=== PATIENT | male | born 1945 | race Caucasian/White ===

== ENCOUNTER → 2018-05-06 | Outpatient (CLI) | payer MEDICARE, OTHER ==
--- NOTE | 2018-05-06 12:44 | CT ---
EXAMINATION TYPE: CT abdomen pelvis wo con DATE OF EXAM: 05/06/2018 COMPARISON: None HISTORY: Gross hematuria today. CT DLP: 1100 mGycm Automated exposure control for dose reduction was used. TECHNIQUE: Helical acquisition of images from the lung bases through the pelvis. FINDINGS: Coronary calcifications noted, there may be calcification along the pericardium posteriorly left ventricle. Lack of contrast may compromise sensitivity. LUNG BASES: Nodular density in the right lower lobe on axial image 1 measures approximately 4 mm, no pleural or pericardial effusion. AORTA: No significant abnormality is appreciated. LIVER/GB: Punctate calcifications in the right lobe of questionable clinical significance. Liver show s low attenuation possibly due to hepatic steatosis. Liver is enlarged. Gallbladder is unremarkable. PANCREAS: No significant abnormality is seen. SPLEEN: No significant abnormality is seen. ADRENALS: No significant abnormality is seen. KIDNEYS: Upper pole right kidney shows a hypointense focus measuring 17 mm likely represent cysts. Th ere is a nonobstructive calcifications seen at the lower pole the right kidney and left kidney measur ing only 3 mm each. Hypointense focus within the left kidney lower pole measures 2.1 cm and also like ly represent cysts. Proximal left ureteral or renal pelvic calculus measures only approximately 2 to 3 mm. REPRODUCTIVE ORGANS: Prostate is enlarged. URINARY BLADDER: There is some high attenuation focus within the urinary bladder, 5 or 6 punctate ca lcific densities are suspected on axial image 1:30, urinary bladder shows thickened wall. BOWEL: Diverticular changes associated with the colon, colonic wall thickening could be due to muscl e wall hypertrophy, difficult to exclude an underlying mass. Follow-up is recommended. The appendix i s normal. FREE AIR: No Free Air is visible. ASCITES: None visible. PELVIC ADENOPATHY: None visualized. RETROPERITONEAL ADENOPATHY: No Retroperitoneal Adenopathy visible. OSSEOUS STRUCTURES: Degenerative disc changes are present in the visualized spine. Facet arthropathy noted at the lower lumbar spine. IMPRESSION: RENAL PELVIC OR PROXIMAL URETERAL CALCIFICATION ON THE LEFT. INDETERMINATE LUNG NODULE. HEPATIC STEAT OSIS, HEPATOMEGALY. BILATERAL NONOBSTRUCTIVE RENAL CALCULI, QUESTION ABNORMAL CALCIFICATIONS WITHIN T HE BLADDER, CONSIDER UROLOGY CONSULT TO EXCLUDE UNDERLYING MASS. NONCONTRAST EXAM. DIVERTICULOSIS. Ad ditional findings above.
== END | disposition home or self-care (01) ==
LOC: RADCTMAIN 12:11
PROVIDERS: ATTEND Family Medicine
DX: N20.0 Calculus of kidney (principal); K76.0 Fatty (change of) liver, not elsewhere classified; K57.30 Diverticulosis of large intestine without perforation or abscess without bleeding; R16.0 Hepatomegaly, not elsewhere classified
CPT/HCPCS: 74176

== ENCOUNTER → 2021-04-18 | Outpatient (CLI) | payer MEDICARE, OTHER ==
--- NOTE | 2021-04-18 16:23 | CT ---
EXAMINATION TYPE: CT brain w con DATE OF EXAM: 04/18/2021 COMPARISON: None HISTORY: cough, weight loss CT DLP: 978.2 mGycm Automated exposure control for dose reduction was used. CONTRAST: CT scan of the head is performed with IV Contrast, patient injected with 100 mL of Isovue 300. FINDINGS: There is no abnormal enhancing mass or midline shift identified. The ventricles and sulci are mildly enlarged. The globes are intact and the visualized sinuses are clear. IMPRESSION: No enhancing lesion. Generalized atrophic change not unusual for this patient's age group.
--- NOTE | 2021-04-18 16:30 | CT ---
EXAMINATION TYPE: CT neck chest w con DATE OF EXAM: 04/18/2021 COMPARISON: None HISTORY: cough, weight loss CT DLP: 932.1 mGycm CONTRAST: CT scan of the neck is performed with IV Contrast, patient injected with 100 mL of Isovue 300. Contrast enhanced CT of the neck was performed from the skull base through the lung apices. AIRWAY: The supraglottic, glottic, and subglottic portions of the airway appear patent and free of mass. SALIVARY GLANDS: The submandibular and parotid glands are free of mass or inflammatory process. THYROID GLAND: No nodules or masses seen. LYMPH NODES: No adenopathy seen greater than 1cm. LUNG APICES: No nodule or mass is seen. OTHER: Vascular structures are patent. Moderate degenerative change of the cervical spine. No absce ss seen. IMPRESSION: No significant abnormality to account for the patient's symptoms. EXAMINATION TYPE: CT neck chest w con DATE OF EXAM: 04/18/2021 COMPARISON: None HISTORY: cough, weight loss CT DLP: 932.1 mGycm Automated exposure control for dose reduction was used. CONTRAST: CT scan of the chest is performed with IV Contrast, patient injected with 100 mL of Isovue 300. FINDINGS: LUNGS: Mild hyperinflation compatible with COPD. The lungs are grossly clear, there is no concerning parenchymal mass or nodule identified. There is no pleural effusion or pneumothorax seen. The trac heobronchial tree is patent. MEDIASTINUM: There are no greater than 1 cm hilar or mediastinal lymph nodes. No pericardial effusi on is seen. Thoracic aorta is of normal caliber. The heart is not enlarged. UPPER ABDOMEN: No significant abnormality appreciated. OTHER: No additional significant abnormality is seen. IMPRESSION: Mild COPD. Otherwise unremarkable study.
== END | disposition home or self-care (01) ==
LOC: RADCTMAIN 14:40
PROVIDERS: ATTEND Family Medicine
DX: J44.9 Chronic obstructive pulmonary disease, unspecified (principal); R05 Cough; R63.4 Abnormal weight loss
CPT/HCPCS: 82565; 84520; 70491; 70460; 71260; 36415; Q9967

== ENCOUNTER 2023-02-18 18:06 | Inpatient (IN) | payer MEDICARE, OTHER ==
--- NOTE | 2023-02-18 19:04 | ED ---
General Adult HPI - General Source: patient, EMS, RN notes reviewed, old records reviewed Mode of arrival: EMS Limitations: no limitations <Miguel Rincon - Last Filed: 02/18/23 20:21> <Barbara Alan - Last Filed: 02/18/23 23:20> <Miguel Jules - Last Filed: 02/21/23 22:57> - General Chief complaint: Urogenital Stated complaint: urogenital Time Seen by Provider: 02/18/23 18:35 - History of Present Illness Initial comments: This is a 77-year-old male who presents emergency Department who comes into the emergency department stating that last night he started having blood in his and he became difficult to urinate starting last light. Patient states the pain in the suprapubic area get worse today and he couldn't urinate so he came to the emergency department. Patient denies any previous history of kidney dysfunction. Patient states he did have once a problem with urinary retention. Patient denies any recent urinary tract infections. Patient denies any fever chills or cough per patient denies any back pain. Patient denies any other problems at this time. (Miguel Rincon) 77 male who did present for significant urinary retention abdominal pain and hematuria. (Miguel Jules) - Related Data Home Medications Medication Instructions Recorded Confirmed Ergocalciferol [Vitamin D2 50,000 unit PO Q14D 01/13/14 02/18/23 (DRISDOL)] Finasteride 5 mg PO DAILY 01/13/14 02/18/23 Tamsulosin [Flomax] 0.4 mg PO HS 01/13/14 02/18/23 atenoloL 50 mg PO DAILY 01/13/14 02/18/23 atenoloL [Tenormin] 25 mg PO HS 01/13/14 02/18/23 metFORMIN HCL 500 mg PO BID-W/MEALS 04/25/16 02/18/23 Amitriptyline HCl [Elavil] 10 mg PO HS 02/18/23 02/18/23 Atorvastatin [Lipitor] 40 mg PO HS 02/18/23 02/18/23 Cetirizine HCl [Zyrtec] 10 mg PO DAILY 02/18/23 02/18/23 Fluticasone Nasal [place] [Flonase 1 spray EA NOSTRIL BID 02/18/23 02/18/23 Nasal [place]] Gabapentin 300 mg PO DAILY 02/18/23 02/18/23 Losartan Potassium 100 mg PO DAILY 02/18/23 02/18/23 Pantoprazole [Protonix] 40 mg PO DAILY 02/18/23 02/18/23 hydrALAZINE HCL [Apresoline] 25 mg PO BID-W/MEALS 02/18/23 02/18/23 Previous Rx's Medication Instructions Recorded Clopidogrel [Plavix] 75 mg PO DAILY tab 04/28/16 Nitroglycerin Sl Tabs [Nitrostat] 0.4 mg SUBLINGUAL Q5M PRN #25 tab 04/28/16 Allergies Allergy/AdvReac Type Severity Reaction Status Date / Time No Known Allergies Allergy Verified 02/18/23 21:45 Review of Systems ROS Other: All systems not noted in ROS Statement are negative. <Miguel Rincon - Last Filed: 02/18/23 20:21> ROS Other: All systems not noted in ROS Statement are negative. <Barbara Alan - Last Filed: 02/18/23 23:20> ROS Other: All systems not noted in ROS Statement are negative. <Miguel Jules - Last Filed: 02/21/23 22:57> ROS Statement: Those systems with pertinent positive or pertinent negative responses have been documented in the HPI. Past Medical History Past Medical History: Coronary Artery Disease (CAD), Chest Pain / Angina, Diabetes Mellitus, GERD/Reflux, Hyperlipidemia, Hypertension, Myocardial Infarction ([place]), Prostate Disorder Last Myocardial Infarction Date:: 01/13/14 History of Any Multi-Drug Resistant Organisms: None Reported Past Surgical History: Heart Catheterization With Stent Additional Past Surgical History / Comment(s): X4. STENTS Past Anesthesia/Blood Transfusion Reactions: No Reported Reaction Date of Last Stent Placement:: 2013 Past Psychological History: No Psychological Hx Reported Past Alcohol Use History: None Reported Past Drug Use History: None Reported - Past Family History Brother(s) Family Medical History: Myocardial Infarction ([place]) Additional Family Medical History / Comment(s): CABG <Miguel Rincon - Last Filed: 02/18/23 20:21> General Exam Limitations: no limitations <Miguel Rincon - Last Filed: 02/18/23 20:21> General appearance: alert, in no apparent distress Head exam: Present: atraumatic, normocephalic, normal inspection Eye exam: Present: normal appearance, PERRL, EOMI. Absent: scleral icterus, conjunctival injection, periorbital swelling ENT exam: Present: normal exam, mucous membranes moist Neck exam: Present: normal inspection. Absent: tenderness, meningismus, lymphadenopathy Respiratory exam: Present: normal lung sounds bilaterally. Absent: respiratory distress, wheezes, rales, rhonchi, stridor Cardiovascular Exam: Present: regular rate, normal rhythm, normal heart sounds. Absent: systolic murmur, diastolic murmur, rubs, gallop, clicks GI/Abdominal exam: Present: soft, normal bowel sounds. Absent: distended, tenderness, guarding, rebound, rigid Extremities exam: Present: normal inspection, full ROM, normal capillary refill. Absent: tenderness, pedal edema, joint swelling, calf tenderness Back exam: Present: normal inspection Neurological exam: Present: alert, oriented X3, CN II-XII intact Psychiatric exam: Present: normal affect, normal mood Skin exam: Present: warm, dry, intact, normal color. Absent: rash <Miguel Jules - Last Filed: 02/21/23 22:57> - General Exam Comments Initial Comments: GENERAL: Patient is well-developed and well-nourished. Patient is nontoxic and well- hydrated and is in mild distress. ENT: Neck is soft and supple. No significant lymphadenopathy is noted. Oropharynx is clear. Moist mucous membranes. Neck has full range of motion without eliciting any pain. EYES: The sclera were anicteric and conjunctiva were pink and moist. Extraocular movements were intact and pupils were equal round and reactive to light. Eyelids were unremarkable. PULMONARY: Unlabored respirations. Good breath sounds bilaterally. No audible rales rhonchi or wheezing was noted. CARDIOVASCULAR: There is a regular rate and rhythm without any murmurs gallops or rubs. ABDOMEN: Suprapubic abdominal tenderness SKIN: Skin is clear with no lesions or rashes and otherwise unremarkable. NEUROLOGIC: Patient is alert and oriented x3. Cranial nerves II through XII are grossly intact. Motor and sensory are also intact. Normal speech, volume and content. Symmetrical smile. MUSCULOSKELETAL: Normal extremities with adequate strength and full range of motion. LYMPHATICS: No significant lymphadenopathy is noted PSYCHIATRIC: Normal psychiatric evaluation. (Miguel Rincon) Course <Miguel Jules - Last Filed: 02/21/23 22:57> Vital Signs 02/18/23 02/19/23 02/19/23 18:20 01:08 01:47 Pulse Rate 69 66 70 Respiratory 18 17 22 Rate Blood Pressure 185/88 181/82 175/102 O2 Sat by Pulse 98 96 99 Oximetry - Reevaluation(s) Reevaluation #1: Medical record is reviewed (Miguel Jules) Reevaluation #2: Patient has no change in symptoms still unable to urinate with significant abdominal pain (Miguel Jules) EKG Findings - EKG Comments: EKG Findings:: EKG is ectopic atrial rhythm 68 VT 186 QRS 152 QTC 469 - EKG Results: EKG: interpreted by ERMD <Miguel Jules - Last Filed: 02/21/23 22:57> Medical Decision Making <Miguel Rincon - Last Filed: 02/18/23 20:21> - Lab Data Result diagrams: 02/18/23 21:00 02/18/23 21:00 <Barbara Alan - Last Filed: 02/18/23 23:20> - Lab Data Result diagrams: 02/21/23 03:30 02/21/23 03:30 - Radiology Data Radiology results: report reviewed (CT head and pelvis shows bladder mass with significant surrounding clot and bleeding), image reviewed <Miguel Jules - Last Filed: 02/21/23 22:57> - Medical Decision Making Was pt. sent in by a medical professional or institution (, PA, [employer], urgent care, hospital, or penitentiary...) When possible be specific @ -[No] Did you speak to anyone other than the patient for history (EMS, parent, family, police, friend...)? What history was obtained from this source @ -[No] Did you review nursing and triage notes (agree or disagree)? Why? @ -[I reviewed and agree with nursing and triage notes] Were old charts reviewed (outside hosp., previous admission, EMS record, old EKG, old radiological studies, urgent care reports/EKG's, penitentiary records)? Report findings @ -[No old charts were reviewed] Differential Diagnosis (chest pain, altered mental status, abdominal pain women, abdominal pain men, vaginal bleeding, weakness, fever, dyspnea, syncope, headache, dizziness, GI bleed, back pain, seizure, CVA, palpatations, mental health, musculoskeletal)? @ -Hematuria, papillary necrosis, pyelonephrosis, urinary tract infection, bladder tumor, urinary retention, this is not all inclusive list EKG interpreted by me (3pts min.). @ -[As above] X-rays interpreted by me (1pt min.). @ -[None done] CT interpreted by me (1pt min.). @ -[None done] U/S interpreted by me (1pt. min.). @ -[None done] What testing was considered but not performed or refused? (CT, X-rays, U/S, labs)? Why? @ -[None] What meds were considered but not given or refused? Why? @ -[None] Did you discuss the management of the patient with other professionals (professionals i.e. , PA, [employer], lab, RT, psych nurse, social media specialist, wedding photographer, teacher, optics technical officer, casework supervisor)? Give summary @ -[No] Was smoking cessation discussed for >3mins.? @ -[No] Was critical care preformed (if so, how long)? @ -[No] Were there social determinants of health that impacted care today? How? (Homelessness, low income, unemployed, alcoholism, drug addiction, transportation, low edu. Level, literacy, decrease access to med. care, fdc, rehab)? @ -[No] Was there de-escalation of care discussed even if they declined (Discuss DNR or withdrawal of care, Hospice)? DNR status @ -[No] What co-morbidities impacted this encounter? (DM, HTN, Smoking, COPD, CAD, Cancer, CVA, ARF, Chemo, Hep., AIDS, mental health diagnosis, sleep apnea, morbid obesity)? @ -[None] Was patient admitted / discharged? Hospital course, mention meds given and route, prescriptions, significant lab abnormalities, going to OR and other pertinent info. @ -I ordered some blood work on the patient to check kidney function. I also ordered a Grover catheter to be placed however no urine was returned so the Grover catheter will be replaced a second time and a three-way will be placed over the patient could be constantly irrigated. Dr. Alan will be taking over the care of this patient at 8:30. (Miguel Rincon) Labs resulted with mild acute kidney injury and some anemia, previous labs were 2017 for comparison. A three-way Grover catheter was placed for irrigation there was some resistance to irrigation however dark bloody urine continued draining. 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 CT scan was ordered and pending at time of admission. Patient care discussed with Dr Mcgovern who agrees with plan for continue grover, NPO for likely cystography tomorrow. Patient care discussed with Suzanne who accepts admission for [facility]. (Barbara Alan) 77 male to be admitted for urology evaluation and treatment. Patient be admitted for surgical evaluation of significant hematuria with likely mass (Miguel Jules) - Lab Data Lab Results 02/18/23 02/18/23 02/19/23 Range/Units 21:00 21:00 00:50 WBC 13.2 H 13.6 H (3.8-10.6) k/uL RBC 3.43 L 3.20 L (4.30-5.90) m/uL Hgb 10.6 L 10.0 L (13.0-17.5) gm/dL Hct 31.4 L 29.1 L (39.0-53.0) % MCV 91.7 91.0 (80.0-100.0) fL MCH 30.9 31.3 (25.0-35.0) pg MCHC 33.7 34.4 (31.0-37.0) g/dL RDW 13.8 13.8 (11.5-15.5) % Plt Count 165 165 (150-450) k/uL MPV 8.2 8.4 Neutrophils % 86 83 % Lymphocytes % 9 11 % Monocytes % 3 4 % Eosinophils % 1 1 % Basophils % 0 0 % Neutrophils # 11.3 H 11.2 H (1.3-7.7) k/uL Lymphocytes # 1.1 1.5 (1.0-4.8) k/uL Monocytes # 0.4 0.6 (0-1.0) k/uL Eosinophils # 0.1 0.1 (0-0.7) k/uL Basophils # 0.0 0.0 (0-0.2) k/uL Hypochromasia Sample Site ABG pH (7.35-7.45) ABG pCO2 (35-45) mmHg ABG pO2 (83-108) mmHg ABG HCO3 (21-25) mmol/L ABG Total CO2 (19-24) mmol/L ABG O2 Saturation (94-97) % ABG Base Excess mmol/L Rashad Test FiO2 % Sodium 141 (137-145) mmol/L Potassium 5.2 H (3.5-5.1) mmol/L Chloride 106 (98-107) mmol/L Carbon Dioxide 24 (22-30) mmol/L Anion Gap 11 mmol/L BUN 25 H (9-20) mg/dL Creatinine 1.42 H (0.66-1.25) mg/dL Est GFR (CKD-EPI)AfAm 55 (>60 ml/min/1.73 sqM) Est GFR (CKD-EPI)NonAf 48 (>60 ml/min/1.73 sqM) Glucose 175 H (74-99) mg/dL POC Glucose (mg/dL) (70-110) mg/dL POC Glu Media Intern ID Lactic Ac Sepsis Rflx Plasma Lactic Acid Bull (0.7-2.0) mmol/L Calcium 8.8 (8.4-10.2) mg/dL Total Bilirubin 0.5 (0.2-1.3) mg/dL AST 22 (17-59) U/L ALT 21 (4-49) U/L Alkaline Phosphatase 72 (38-126) U/L C-Reactive Protein (<1.0) mg/dL Total Protein 6.5 (6.3-8.2) g/dL Albumin 3.8 (3.5-5.0) g/dL Globulin g/dL Albumin/Globulin Ratio Blood Type Blood Type Confirm Blood Type Recheck Bld Type Recheck Status Antibody Screen Spec Expiration Date 02/19/23 02/19/23 02/19/23 Range/Units 00:50 01:45 01:49 WBC (3.8-10.6) k/uL RBC (4.30-5.90) m/uL Hgb (13.0-17.5) gm/dL Hct (39.0-53.0) % MCV (80.0-100.0) fL MCH (25.0-35.0) pg MCHC (31.0-37.0) g/dL RDW (11.5-15.5) % Plt Count (150-450) k/uL MPV Neutrophils % % Lymphocytes % % Monocytes % % Eosinophils % % Basophils % % Neutrophils # (1.3-7.7) k/uL Lymphocytes # (1.0-4.8) k/uL Monocytes # (0-1.0) k/uL Eosinophils # (0-0.7) k/uL Basophils # (0-0.2) k/uL Hypochromasia Sample Site ABG pH (7.35-7.45) ABG pCO2 (35-45) mmHg ABG pO2 (83-108) mmHg ABG HCO3 (21-25) mmol/L ABG Total CO2 (19-24) mmol/L ABG O2 Saturation (94-97) % ABG Base Excess mmol/L Rashad Test FiO2 % Sodium 140 (137-145) mmol/L Potassium 5.0 (3.5-5.1) mmol/L Chloride 106 (98-107) mmol/L Carbon Dioxide 24 (22-30) mmol/L Anion Gap 10 mmol/L BUN 26 H (9-20) mg/dL Creatinine 1.49 H (0.66-1.25) mg/dL Est GFR (CKD-EPI)AfAm 52 (>60 ml/min/1.73 sqM) Est GFR (CKD-EPI)NonAf 45 (>60 ml/min/1.73 sqM) Glucose 185 H (74-99) mg/dL POC Glucose (mg/dL) (70-110) mg/dL POC Glu Media Intern ID Lactic Ac Sepsis Rflx Plasma Lactic Acid Bull (0.7-2.0) mmol/L Calcium 8.8 (8.4-10.2) mg/dL Total Bilirubin (0.2-1.3) mg/dL AST (17-59) U/L ALT (4-49) U/L Alkaline Phosphatase (38-126) U/L C-Reactive Protein (<1.0) mg/dL Total Protein (6.3-8.2) g/dL Albumin (3.5-5.0) g/dL Globulin g/dL Albumin/Globulin Ratio Blood Type O Positive Blood Type Confirm O Positive Blood Type Recheck No Previous Record Bld Type Recheck Status CABO Indicated Antibody Screen NEGATIVE Spec Expiration Date 02/22/2023 - 234902/19/23 02/19/23 02/19/23 Range/Units 03:29 03:29 15:10 WBC 13.7 H (3.8-10.6) k/uL RBC 3.21 L (4.30-5.90) m/uL Hgb 9.7 L (13.0-17.5) gm/dL Hct 30.0 L (39.0-53.0) % MCV 93.6 (80.0-100.0) fL MCH 30.2 (25.0-35.0) pg MCHC 32.3 (31.0-37.0) g/dL RDW 13.8 (11.5-15.5) % Plt Count 184 (150-450) k/uL MPV 8.4 Neutrophils % 82 % Lymphocytes % 13 % Monocytes % 3 % Eosinophils % 1 % Basophils % 0 % Neutrophils # 11.3 H (1.3-7.7) k/uL Lymphocytes # 1.8 (1.0-4.8) k/uL Monocytes # 0.4 (0-1.0) k/uL Eosinophils # 0.1 (0-0.7) k/uL Basophils # 0.0 (0-0.2) k/uL Hypochromasia Sample Site ABG pH (7.35-7.45) ABG pCO2 (35-45) mmHg ABG pO2 (83-108) mmHg ABG HCO3 (21-25) mmol/L ABG Total CO2 (19-24) mmol/L ABG O2 Saturation (94-97) % ABG Base Excess mmol/L Rashad Test FiO2 % Sodium 139 (137-145) mmol/L Potassium 4.8 (3.5-5.1) mmol/L Chloride 105 (98-107) mmol/L Carbon Dioxide 22 (22-30) mmol/L Anion Gap 12 mmol/L BUN 26 H (9-20) mg/dL Creatinine 1.51 H (0.66-1.25) mg/dL Est GFR (CKD-EPI)AfAm 51 (>60 ml/min/1.73 sqM) Est GFR (CKD-EPI)NonAf 44 (>60 ml/min/1.73 sqM) Glucose 247 H (74-99) mg/dL POC Glucose (mg/dL) (70-110) mg/dL POC Glu Media Intern ID Lactic Ac Sepsis Rflx Plasma Lactic Acid Bull 2.4 H* (0.7-2.0) mmol/L Calcium 8.5 (8.4-10.2) mg/dL Total Bilirubin 0.5 (0.2-1.3) mg/dL AST 21 (17-59) U/L ALT 21 (4-49) U/L Alkaline Phosphatase 73 (38-126) U/L C-Reactive Protein (<1.0) mg/dL Total Protein 6.4 (6.3-8.2) g/dL Albumin 3.8 (3.5-5.0) g/dL Globulin 2.6 g/dL Albumin/Globulin Ratio 1.5 Blood Type Blood Type Confirm Blood Type Recheck Bld Type Recheck Status Antibody Screen Spec Expiration Date 02/19/23 02/19/23 02/19/23 Range/Units 15:51 22:50 22:50 WBC 24.3 H (3.8-10.6) k/uL RBC 2.69 L (4.30-5.90) m/uL Hgb 8.4 L (13.0-17.5) gm/dL Hct 26.2 L (39.0-53.0) % MCV 97.4 (80.0-100.0) fL MCH 31.1 (25.0-35.0) pg MCHC 31.9 (31.0-37.0) g/dL RDW 13.9 (11.5-15.5) % Plt Count 222 (150-450) k/uL MPV 7.8 Neutrophils % 82 % Lymphocytes % 11 % Monocytes % 4 % Eosinophils % 1 % Basophils % 0 % Neutrophils # 20.0 H (1.3-7.7) k/uL Lymphocytes # 2.7 (1.0-4.8) k/uL Monocytes # 1.1 H (0-1.0) k/uL Eosinophils # 0.4 (0-0.7) k/uL Basophils # 0.1 (0-0.2) k/uL Hypochromasia Marked Sample Site ABG pH (7.35-7.45) ABG pCO2 (35-45) mmHg ABG pO2 (83-108) mmHg ABG HCO3 (21-25) mmol/L ABG Total CO2 (19-24) mmol/L ABG O2 Saturation (94-97) % ABG Base Excess mmol/L Rashad Test FiO2 % Sodium (137-145) mmol/L Potassium (3.5-5.1) mmol/L Chloride (98-107) mmol/L Carbon Dioxide (22-30) mmol/L Anion Gap mmol/L BUN (9-20) mg/dL Creatinine (0.66-1.25) mg/dL Est GFR (CKD-EPI)AfAm (>60 ml/min/1.73 sqM) Est GFR (CKD-EPI)NonAf (>60 ml/min/1.73 sqM) Glucose (74-99) mg/dL POC Glucose (mg/dL) (70-110) mg/dL POC Glu Media Intern ID Lactic Ac Sepsis Rflx Y Plasma Lactic Acid Bull 8.1 H* (0.7-2.0) mmol/L Calcium (8.4-10.2) mg/dL Total Bilirubin (0.2-1.3) mg/dL AST (17-59) U/L ALT (4-49) U/L Alkaline Phosphatase (38-126) U/L C-Reactive Protein (<1.0) mg/dL Total Protein (6.3-8.2) g/dL Albumin (3.5-5.0) g/dL Globulin g/dL Albumin/Globulin Ratio Blood Type Blood Type Confirm Blood Type Recheck Bld Type Recheck Status Antibody Screen Spec Expiration Date 02/19/23 02/19/23 02/19/23 Range/Units 22:51 23:17 23:37 WBC (3.8-10.6) k/uL RBC (4.30-5.90) m/uL Hgb (13.0-17.5) gm/dL Hct (39.0-53.0) % MCV (80.0-100.0) fL MCH (25.0-35.0) pg MCHC (31.0-37.0) g/dL RDW (11.5-15.5) % Plt Count (150-450) k/uL MPV Neutrophils % % Lymphocytes % % Monocytes % % Eosinophils % % Basophils % % Neutrophils # (1.3-7.7) k/uL Lymphocytes # (1.0-4.8) k/uL Monocytes # (0-1.0) k/uL Eosinophils # (0-0.7) k/uL Basophils # (0-0.2) k/uL Hypochromasia Sample Site ABG pH (7.35-7.45) ABG pCO2 (35-45) mmHg ABG pO2 (83-108) mmHg ABG HCO3 (21-25) mmol/L ABG Total CO2 (19-24) mmol/L ABG O2 Saturation (94-97) % ABG Base Excess mmol/L Rashad Test FiO2 % Sodium 141 (137-145) mmol/L Potassium 5.1 (3.5-5.1) mmol/L Chloride 108 H (98-107) mmol/L Carbon Dioxide 17 L (22-30) mmol/L Anion Gap 16 mmol/L BUN (9-20) mg/dL Creatinine (0.66-1.25) mg/dL Est GFR (CKD-EPI)AfAm (>60 ml/min/1.73 sqM) Est GFR (CKD-EPI)NonAf (>60 ml/min/1.73 sqM) Glucose (74-99) mg/dL POC Glucose (mg/dL) 183 H (70-110) mg/dL POC Glu Media Intern ID Naomi Hodge Lactic Ac Sepsis Rflx Y Plasma Lactic Acid Bull (0.7-2.0) mmol/L Calcium (8.4-10.2) mg/dL Total Bilirubin (0.2-1.3) mg/dL AST (17-59) U/L ALT (4-49) U/L Alkaline Phosphatase (38-126) U/L C-Reactive Protein (<1.0) mg/dL Total Protein (6.3-8.2) g/dL Albumin (3.5-5.0) g/dL Globulin g/dL Albumin/Globulin Ratio Blood Type Blood Type Confirm Blood Type Recheck Bld Type Recheck Status Antibody Screen Spec Expiration Date 02/20/23 02/20/23 02/20/23 Range/Units 00:04 00:37 02:28 WBC (3.8-10.6) k/uL RBC (4.30-5.90) m/uL Hgb (13.0-17.5) gm/dL Hct (39.0-53.0) % MCV (80.0-100.0) fL MCH (25.0-35.0) pg MCHC (31.0-37.0) g/dL RDW (11.5-15.5) % Plt Count (150-450) k/uL MPV Neutrophils % % Lymphocytes % % Monocytes % % Eosinophils % % Basophils % % Neutrophils # (1.3-7.7) k/uL Lymphocytes # (1.0-4.8) k/uL Monocytes # (0-1.0) k/uL Eosinophils # (0-0.7) k/uL Basophils # (0-0.2) k/uL Hypochromasia Sample Site rrad ABG pH 7.25 L (7.35-7.45) ABG pCO2 47 H (35-45) mmHg ABG pO2 113 H (83-108) mmHg ABG HCO3 21 (21-25) mmol/L ABG Total CO2 22 (19-24) mmol/L ABG O2 Saturation 97.1 H (94-97) % ABG Base Excess -6.7 mmol/L Rashad Test Yes FiO2 40 % Sodium (137-145) mmol/L Potassium (3.5-5.1) mmol/L Chloride (98-107) mmol/L Carbon Dioxide (22-30) mmol/L Anion Gap mmol/L BUN (9-20) mg/dL Creatinine (0.66-1.25) mg/dL Est GFR (CKD-EPI)AfAm (>60 ml/min/1.73 sqM) Est GFR (CKD-EPI)NonAf (>60 ml/min/1.73 sqM) Glucose (74-99) mg/dL POC Glucose (mg/dL) 187 H (70-110) mg/dL POC Glu Media Intern ID Rosario Choudhury Lactic Ac Sepsis Rflx Plasma Lactic Acid Bull (0.7-2.0) mmol/L Calcium (8.4-10.2) mg/dL Total Bilirubin (0.2-1.3) mg/dL AST (17-59) U/L ALT (4-49) U/L Alkaline Phosphatase (38-126) U/L C-Reactive Protein 7.8 H (<1.0) mg/dL Total Protein (6.3-8.2) g/dL Albumin (3.5-5.0) g/dL Globulin g/dL Albumin/Globulin Ratio Blood Type Blood Type Confirm Blood Type Recheck Bld Type Recheck Status Antibody Screen Spec Expiration Date 02/20/23 02/20/23 02/20/23 Range/Units 03:39 03:39 03:39 WBC 8.8 (3.8-10.6) k/uL RBC 2.44 L (4.30-5.90) m/uL Hgb 7.6 L (13.0-17.5) gm/dL Hct 22.8 L (39.0-53.0) % MCV 93.7 (80.0-100.0) fL MCH 31.3 (25.0-35.0) pg MCHC 33.4 (31.0-37.0) g/dL RDW 14.1 (11.5-15.5) % Plt Count 135 L (150-450) k/uL MPV 8.1 Neutrophils % 85 % Lymphocytes % 6 % Monocytes % 7 % Eosinophils % 1 % Basophils % 0 % Neutrophils # 7.4 (1.3-7.7) k/uL Lymphocytes # 0.5 L (1.0-4.8) k/uL Monocytes # 0.6 (0-1.0) k/uL Eosinophils # 0.1 (0-0.7) k/uL Basophils # 0.0 (0-0.2) k/uL Hypochromasia Sample Site ABG pH (7.35-7.45) ABG pCO2 (35-45) mmHg ABG pO2 (83-108) mmHg ABG HCO3 (21-25) mmol/L ABG Total CO2 (19-24) mmol/L ABG O2 Saturation (94-97) % ABG Base Excess mmol/L Rashad Test FiO2 % Sodium 141 (137-145) mmol/L Potassium 5.9 H (3.5-5.1) mmol/L Chloride 109 H (98-107) mmol/L Carbon Dioxide 27 (22-30) mmol/L Anion Gap 5 mmol/L BUN 39 H (9-20) mg/dL Creatinine 2.07 H (0.66-1.25) mg/dL Est GFR (CKD-EPI)AfAm 35 (>60 ml/min/1.73 sqM) Est GFR (CKD-EPI)NonAf 30 (>60 ml/min/1.73 sqM) Glucose 141 H (74-99) mg/dL POC Glucose (mg/dL) (70-110) mg/dL POC Glu Media Intern ID Lactic Ac Sepsis Rflx Plasma Lactic Acid Bull 2.2 H* (0.7-2.0) mmol/L Calcium 7.5 L (8.4-10.2) mg/dL Total Bilirubin (0.2-1.3) mg/dL AST (17-59) U/L ALT (4-49) U/L Alkaline Phosphatase (38-126) U/L C-Reactive Protein (<1.0) mg/dL Total Protein (6.3-8.2) g/dL Albumin (3.5-5.0) g/dL Globulin g/dL Albumin/Globulin Ratio Blood Type Blood Type Confirm Blood Type Recheck Bld Type Recheck Status Antibody Screen Spec Expiration Date 02/20/23 02/20/23 02/20/23 Range/Units 04:33 05:38 06:03 WBC (3.8-10.6) k/uL RBC (4.30-5.90) m/uL Hgb (13.0-17.5) gm/dL Hct (39.0-53.0) % MCV (80.0-100.0) fL MCH (25.0-35.0) pg MCHC (31.0-37.0) g/dL RDW (11.5-15.5) % Plt Count (150-450) k/uL MPV Neutrophils % % Lymphocytes % % Monocytes % % Eosinophils % % Basophils % % Neutrophils # (1.3-7.7) k/uL Lymphocytes # (1.0-4.8) k/uL Monocytes # (0-1.0) k/uL Eosinophils # (0-0.7) k/uL Basophils # (0-0.2) k/uL Hypochromasia Sample Site ABG pH (7.35-7.45) ABG pCO2 (35-45) mmHg ABG pO2 (83-108) mmHg ABG HCO3 (21-25) mmol/L ABG Total CO2 (19-24) mmol/L ABG O2 Saturation (94-97) % ABG Base Excess mmol/L Rashad Test FiO2 % Sodium (137-145) mmol/L Potassium (3.5-5.1) mmol/L Chloride (98-107) mmol/L Carbon Dioxide (22-30) mmol/L Anion Gap mmol/L BUN (9-20) mg/dL Creatinine (0.66-1.25) mg/dL Est GFR (CKD-EPI)AfAm (>60 ml/min/1.73 sqM) Est GFR (CKD-EPI)NonAf (>60 ml/min/1.73 sqM) Glucose (74-99) mg/dL POC Glucose (mg/dL) 131 H 179 H (70-110) mg/dL POC Glu Media Intern ID Roshni Chacon Brandi Lactic Ac Sepsis Rflx Y Plasma Lactic Acid Bull (0.7-2.0) mmol/L Calcium (8.4-10.2) mg/dL Total Bilirubin (0.2-1.3) mg/dL AST (17-59) U/L ALT (4-49) U/L Alkaline Phosphatase (38-126) U/L C-Reactive Protein (<1.0) mg/dL Total Protein (6.3-8.2) g/dL Albumin (3.5-5.0) g/dL Globulin g/dL Albumin/Globulin Ratio Blood Type Blood Type Confirm Blood Type Recheck Bld Type Recheck Status Antibody Screen Spec Expiration Date 02/20/23 02/20/23 Range/Units 07:29 08:11 WBC (3.8-10.6) k/uL RBC (4.30-5.90) m/uL Hgb (13.0-17.5) gm/dL Hct (39.0-53.0) % MCV (80.0-100.0) fL MCH (25.0-35.0) pg MCHC (31.0-37.0) g/dL RDW (11.5-15.5) % Plt Count (150-450) k/uL MPV Neutrophils % % Lymphocytes % % Monocytes % % Eosinophils % % Basophils % % Neutrophils # (1.3-7.7) k/uL Lymphocytes # (1.0-4.8) k/uL Monocytes # (0-1.0) k/uL Eosinophils # (0-0.7) k/uL Basophils # (0-0.2) k/uL Hypochromasia Sample Site ABG pH (7.35-7.45) ABG pCO2 (35-45) mmHg ABG pO2 (83-108) mmHg ABG HCO3 (21-25) mmol/L ABG Total CO2 (19-24) mmol/L ABG O2 Saturation (94-97) % ABG Base Excess mmol/L Rashad Test FiO2 % Sodium (137-145) mmol/L Potassium (3.5-5.1) mmol/L Chloride (98-107) mmol/L Carbon Dioxide (22-30) mmol/L Anion Gap mmol/L BUN (9-20) mg/dL Creatinine (0.66-1.25) mg/dL Est GFR (CKD-EPI)AfAm (>60 ml/min/1.73 sqM) Est GFR (CKD-EPI)NonAf (>60 ml/min/1.73 sqM) Glucose (74-99) mg/dL POC Glucose (mg/dL) (70-110) mg/dL POC Glu Media Intern ID Lactic Ac Sepsis Rflx Y Plasma Lactic Acid Bull 4.0 H* (0.7-2.0) mmol/L Calcium (8.4-10.2) mg/dL Total Bilirubin (0.2-1.3) mg/dL AST (17-59) U/L ALT (4-49) U/L Alkaline Phosphatase (38-126) U/L C-Reactive Protein (<1.0) mg/dL Total Protein (6.3-8.2) g/dL Albumin (3.5-5.0) g/dL Globulin g/dL Albumin/Globulin Ratio Blood Type Blood Type Confirm Blood Type Recheck Bld Type Recheck Status Antibody Screen Spec Expiration Date Critical Care Time Critical Care Time: Yes Total Critical Care Time: 31 <Miguel Jules - Last Filed: 02/21/23 22:57> Disposition <Miguel Rincon - Last Filed: 02/18/23 20:21> Is patient prescribed a controlled substance at d/c from ED?: No <Barbara Alan - Last Filed: 02/18/23 23:20> Is patient prescribed a controlled substance at d/c from ED?: No Time of Disposition: 23:45 <Miguel Jules - Last Filed: 02/21/23 22:57> Clinical Impression: Gross hematuria, Urinary retention, Anemia, Bladder mass Disposition: ADMITTED IP TO THIS HOSP Condition: Serious
[2023-02-18] MEDS ORDERED: KETOROLAC 15 MG/ML 1 ML VIAL IM STA (19:54)
[2023-02-18] MEDS ORDERED: HYDROmorphone 1 MG/ML 1 ML SYRINGE IVP STA (21:24)
[2023-02-18 21:32] LABS: Basophils % (A) 0 %; Eosinophils # (A) 0.1 k/uL (0-0.7); Eosinophils % (A) 1 %; HCT 31.4 % (39.0-53.0); HGB 10.6 gm/dL (13.0-17.5); Lymphocytes # (A) 1.1 k/uL (1.0-4.8); Lymphocytes % (A) 9 %; MCH 30.9 pg (25.0-35.0); MCHC 33.7 g/dL (31.0-37.0); MCV 91.7 fL (80.0-100.0); Mean Platelet Volume 8.2; Monocytes # (A) 0.4 k/uL (0-1.0); Monocytes % (A) 3 %; Neutrophils # (A) 11.3 k/uL (1.3-7.7); Neutrophils % (A) 86 %; Platelet Count 165 k/uL (150-450); RBC 3.43 m/uL (4.30-5.90); RDW 13.8 % (11.5-15.5); WBC 13.2 k/uL (3.8-10.6)
[2023-02-18 21:52] LABS: ALT 21 U/L (4-49); AST 22 U/L (17-59); African American GFR (CKD) 55 (>60 ml/min/1.73 sqM); Albumin 3.8 g/dL (3.5-5.0); Alkaline Phosphatase 72 U/L (38-126); Anion Gap 11 mmol/L; Blood Urea Nitrogen 25 mg/dL (9-20); Calcium 8.8 mg/dL (8.4-10.2); Carbon Dioxide 24 mmol/L (22-30); Chloride 106 mmol/L (98-107); Glucose 175 mg/dL (74-99); Non-African American GFR(CKD) 48 (>60 ml/min/1.73 sqM); Potassium 5.2 mmol/L (3.5-5.1); Sodium 141 mmol/L (137-145); Total Bilirubin 0.5 mg/dL (0.2-1.3); Total Protein 6.5 g/dL (6.3-8.2)
[2023-02-18] MEDS: SODIUM CHLORIDE 0.9% IRRIGATIO 3,000 ML IRRIGATION SCH (22:00)
--- NOTE | 2023-02-18 22:58 | US ---
EXAMINATION TYPE: US renals and bladder DATE OF EXAM: 02/18/2023 COMPARISON: CT:05/06/18 CLINICAL INDICATION: Male, 77 years old with history of retention, hematuria; urinary retention and h ematuria EXAM MEASUREMENTS: Right Kidney: 10.8 x 5.0 x 5.7 cm Left Kidney: 12.8 x 5.3 x 6.9 cm Right Kidney: Multiple cysts seen. Largest = 3.7 x 3.9 x 3.0cm in sup pole. Hypoechoic fat strand see n adjacent to kidney Left Kidney: Multiple cysts seen. Largest = 3.8 x 3.7 x 3.0cm in mid/inf pole. Hypoechoic fat strand seen adjacent to kidney Bladder: Bella placed. Bladder appears complex with products inside. Bilateral Jets seen: No IMPRESSION: 1. Mass or debris-filled urinary bladder. Additional workup is recommended. Neoplasm should be consid ered. 2. Bilateral renal cysts.
[2023-02-18] MEDS ORDERED: NALOXONE 0.4 MG/ML 1 ML VIAL IV PRN (23:24)
--- NOTE | 2023-02-19 00:14 | CT ---
EXAMINATION TYPE: CT abdomen pelvis w con DATE OF EXAM: 02/18/2023 COMPARISON: 05/06/2018 INDICATION: Hematuria and urinary retention starting today. Study includes 4 min bladder delay. DLP: 1421.8 mGycm, Automated exposure control for dose reduction was used. CONTRAST: 80ml mL of Isovue 300. Study performed without Oral Contrast TECHNIQUE: Axial images were obtained from above the diaphragm to the pubic rami in the axial plane a t 5 mm thick sections. Reconstructed images are reviewed on the computer in the coronal plane. FINDINGS: Limited CT sections are obtained the lung bases. The lung bases are clear. CT ABDOMEN: Liver: Normal Spleen: Normal Pancreas: Normal Adrenal glands: The adrenal glands are normal. Gallbladder: Normal Kidneys: No masses are evident. No hydronephrosis is present. There is a 3.1 cm cyst anterior right kidney. Small cortical renal cysts are the anterior and posterior lateral mid left kidney. Small co rtical renal cysts at the mid to inferior pole right kidney. There is ar 3.2 cm cyst posterior inferi or pole left kidney. Small exophytic cyst is at the lower pole of left kidney. Aorta: Vascular calcification is within the aorta. Inferior vena cava: Normal. CT PELVIS: Loops of bowel within the abdomen and pelvis are normal. This study is performed without oral con trast limiting bowel evaluation. Scattered diverticuli within the sigmoid colon. Fecal debris is at t he level of the rectum. Appendix: Normal as visualized. Urinary bladder: Urinary bladder is distended. There are multiple low density areas which could be lo culated air or fat present. Bella catheter is within the urinary bladder. There are some grouped calc ifications along the anterior left lateral urinary bladder. Findings of change from the 2017 comparis on. Minimal contrast is within the dependent urinary bladder on delayed images. No significant fillin g of the urinary bladder is evident contrast. Genitourinary structures: Prostate is mild prominence. Osseous structures: No suspicious lytic or sclerotic lesions. IMPRESSIONS: 1. Large heterogenous appearing urinary bladder with minimal contrast present on delayed images. Min imal fluid may be present within the dependent urinary bladder adjacent contrast. Urinary bladder genna ears to be otherwise filled with debris. Polypoid mass along the anterior lateral left urinary bladde r is not excluded.
[2023-02-19] MEDS: SODIUM CHLORIDE 0.9% 1,000 ML IV SCH ×2 (00:42→13:37)
[2023-02-19] MEDS ORDERED: HYDROmorphone 1 MG/ML 1 ML SYRINGE IVP STA (01:31)
[2023-02-19 01:33] LABS: Basophils % (A) 0 %; Eosinophils # (A) 0.1 k/uL (0-0.7); Eosinophils % (A) 1 %; HCT 29.1 % (39.0-53.0); Lymphocytes # (A) 1.5 k/uL (1.0-4.8); Lymphocytes % (A) 11 %; MCH 31.3 pg (25.0-35.0); MCHC 34.4 g/dL (31.0-37.0); Mean Platelet Volume 8.4; Monocytes # (A) 0.6 k/uL (0-1.0); Monocytes % (A) 4 %; Neutrophils # (A) 11.2 k/uL (1.3-7.7); Neutrophils % (A) 83 %; Platelet Count 165 k/uL (150-450); RDW 13.8 % (11.5-15.5); WBC 13.6 k/uL (3.8-10.6)
[2023-02-19] MEDS ORDERED: ONDANSETRON 4 MG/2 ML VIAL IVP PRN (02:21)
[2023-02-19 02:24] LABS: African American GFR (CKD) 52 (>60 ml/min/1.73 sqM); Anion Gap 10 mmol/L; Blood Urea Nitrogen 26 mg/dL (9-20); Calcium 8.8 mg/dL (8.4-10.2); Carbon Dioxide 24 mmol/L (22-30); Chloride 106 mmol/L (98-107); Glucose 185 mg/dL (74-99); Non-African American GFR(CKD) 45 (>60 ml/min/1.73 sqM); Sodium 140 mmol/L (137-145)
[2023-02-19] MEDS: hydrALAZINE HCL 20 MG/ML 1 ML VIAL IVP PRN (02:35)
[2023-02-19 04:38] LABS: ALT 21 U/L (4-49); AST 21 U/L (17-59); African American GFR (CKD) 51 (>60 ml/min/1.73 sqM); Albumin 3.8 g/dL (3.5-5.0); Albumin/Globulin Ratio 1.5; Alkaline Phosphatase 73 U/L (38-126); Anion Gap 12 mmol/L; Blood Urea Nitrogen 26 mg/dL (9-20); Calcium 8.5 mg/dL (8.4-10.2); Carbon Dioxide 22 mmol/L (22-30); Chloride 105 mmol/L (98-107); Globulin 2.6 g/dL; Glucose 247 mg/dL (74-99); Non-African American GFR(CKD) 44 (>60 ml/min/1.73 sqM); Potassium 4.8 mmol/L (3.5-5.1); Sodium 139 mmol/L (137-145); Total Bilirubin 0.5 mg/dL (0.2-1.3); Total Protein 6.4 g/dL (6.3-8.2)
[2023-02-19 04:55] LABS: Basophils % (A) 0 %; Eosinophils # (A) 0.1 k/uL (0-0.7); Eosinophils % (A) 1 %; HGB 9.7 gm/dL (13.0-17.5); Lymphocytes # (A) 1.8 k/uL (1.0-4.8); Lymphocytes % (A) 13 %; MCH 30.2 pg (25.0-35.0); MCHC 32.3 g/dL (31.0-37.0); MCV 93.6 fL (80.0-100.0); Mean Platelet Volume 8.4; Monocytes # (A) 0.4 k/uL (0-1.0); Monocytes % (A) 3 %; Neutrophils # (A) 11.3 k/uL (1.3-7.7); Neutrophils % (A) 82 %; Platelet Count 184 k/uL (150-450); RBC 3.21 m/uL (4.30-5.90); RDW 13.8 % (11.5-15.5); WBC 13.7 k/uL (3.8-10.6)
[2023-02-19] MEDS: HYDROmorphone 1 MG/ML 1 ML SYRINGE IVP PRN ×3 (05:13→15:27)
[2023-02-19] MEDS: atenoloL 50 MG TAB PO SCH (09:32)
[2023-02-19] MEDS: LOSARTAN 50 MG TAB PO SCH (09:37)
[2023-02-19] MEDS: hydrALAZINE HCL 25 MG TAB PO SCH ×2 (09:37→16:51)
--- NOTE | 2023-02-19 10:33 | P.GSCN ---
History of Present Illness Consult date: 02/19/23 Reason for Consult: Gross Hematuria, Urinary Retention Requesting physician: Machelle Lynch History of present illness: The patient is a 77-year-old white male who experienced gross hematuria beginning the evening of 02/17/2023. This was associated with difficulty voiding. The following day, he experienced suprapubic pain and increased difficulty voiding. He presented to the ER and was found to be in urinary retention. CT scan shows bladder density with heterogeneity suggestive of tumor and/or clots. He has had one prior episode of urinary retention. He denies any prior history of UTIs or urolithiasis. Of note, the patient quit smoking 3 years ago but previously smoked for 30 years. He does take Plavix. Review of Systems - Constitutional Denies chills, Denies fever - Genitourinary Reports as per HPI Past Medical History Past Medical History: Coronary Artery Disease (CAD), Chest Pain / Angina, Diabetes Mellitus, GERD/Reflux, Hyperlipidemia, Hypertension, Myocardial Infarction ([place]), Prostate Disorder Last Myocardial Infarction Date:: 01/13/14 History of Any Multi-Drug Resistant Organisms: None Reported Past Surgical History: Heart Catheterization With Stent Additional Past Surgical History / Comment(s): X4. STENTS Past Anesthesia/Blood Transfusion Reactions: No Reported Reaction Date of Last Stent Placement:: 2013 Past Psychological History: No Psychological Hx Reported Smoking Status: Former smoker Past Alcohol Use History: None Reported Past Drug Use History: None Reported - Past Family History Brother(s) Family Medical History: Myocardial Infarction ([place]) Additional Family Medical History / Comment(s): CABG Medications and Allergies Home Medications Medication Instructions Recorded Confirmed Type Ergocalciferol [Vitamin D2 50,000 unit PO Q14D 01/13/14 02/18/23 History (DRISDOL)] Finasteride 5 mg PO DAILY 01/13/14 02/18/23 History Tamsulosin [Flomax] 0.4 mg PO HS 01/13/14 02/18/23 History atenoloL 50 mg PO DAILY 01/13/14 02/18/23 History atenoloL [Tenormin] 25 mg PO HS 01/13/14 02/18/23 History metFORMIN HCL 500 mg PO BID-W/MEALS 04/25/16 02/18/23 History Clopidogrel [Plavix] 75 mg PO DAILY tab 04/28/16 02/18/23 Rx Nitroglycerin Sl Tabs [Nitrostat] 0.4 mg SUBLINGUAL Q5M PRN #25 tab 04/28/16 02/18/23 Rx Amitriptyline HCl [Elavil] 10 mg PO HS 02/18/23 02/18/23 History Atorvastatin [Lipitor] 40 mg PO HS 02/18/23 02/18/23 History Cetirizine HCl [Zyrtec] 10 mg PO DAILY 02/18/23 02/18/23 History Fluticasone Nasal [place] [Flonase 1 spray EA NOSTRIL BID 02/18/23 02/18/23 History Nasal [place]] Gabapentin 300 mg PO DAILY 02/18/23 02/18/23 History Losartan Potassium 100 mg PO DAILY 02/18/23 02/18/23 History Pantoprazole [Protonix] 40 mg PO DAILY 02/18/23 02/18/23 History hydrALAZINE HCL [Apresoline] 25 mg PO BID-W/MEALS 02/18/23 02/18/23 History Allergies Allergy/AdvReac Type Severity Reaction Status Date / Time No Known Allergies Allergy Verified 02/18/23 21:45 Surgical - Exam Vital Signs Pulse Resp BP Pulse Ox 69 18 185/88 98 02/18/23 18:20 02/18/23 18:20 02/18/23 18:20 02/18/23 18:20 - General well developed, well nourished, moderate distress - Respiratory normal respiratory effort - Abdomen Abdomen: soft, no masses, no guarding, no rigid, no rebound - Genitourinary normal penis with no external lesions, testicles non-tender - Rectum Rectum: normal sphincter tone, no masses, other (Prostate mildly enlarged, small left-sided nodule) - Psychiatric oriented to time, oriented to person, oriented to place, speech is normal, memory intact Results - Labs 02/19/23 03:29 02/19/23 03:29 Abnormal Lab Results - Last 24 Hours (Table) 02/18/23 02/18/23 02/19/23 Range/Units 21:00 21:00 00:50 WBC 13.2 H 13.6 H (3.8-10.6) k/uL RBC 3.43 L 3.20 L (4.30-5.90) m/uL Hgb 10.6 L 10.0 L (13.0-17.5) gm/dL Hct 31.4 L 29.1 L (39.0-53.0) % Neutrophils # 11.3 H 11.2 H (1.3-7.7) k/uL Potassium 5.2 H (3.5-5.1) mmol/L BUN 25 H (9-20) mg/dL Creatinine 1.42 H (0.66-1.25) mg/dL Glucose 175 H (74-99) mg/dL 02/19/23 02/19/23 02/19/23 Range/Units 01:45 03:29 03:29 WBC 13.7 H (3.8-10.6) k/uL RBC 3.21 L (4.30-5.90) m/uL Hgb 9.7 L (13.0-17.5) gm/dL Hct 30.0 L (39.0-53.0) % Neutrophils # 11.3 H (1.3-7.7) k/uL Potassium (3.5-5.1) mmol/L BUN 26 H 26 H (9-20) mg/dL Creatinine 1.49 H 1.51 H (0.66-1.25) mg/dL Glucose 185 H 247 H (74-99) mg/dL Diabetes panel 02/18/23 02/19/23 02/19/23 Range/Units 21:00 01:45 03:29 Sodium 141 140 139 (137-145) mmol/L Potassium 5.2 H 5.0 4.8 (3.5-5.1) mmol/L Chloride 106 106 105 (98-107) mmol/L Carbon Dioxide 24 24 22 (22-30) mmol/L BUN 25 H 26 H 26 H (9-20) mg/dL Creatinine 1.42 H 1.49 H 1.51 H (0.66-1.25) mg/dL Glucose 175 H 185 H 247 H (74-99) mg/dL Calcium 8.8 8.8 8.5 (8.4-10.2) mg/dL AST 22 21 (17-59) U/L ALT 21 21 (4-49) U/L Alkaline Phosphatase 72 73 (38-126) U/L Total Protein 6.5 6.4 (6.3-8.2) g/dL Albumin 3.8 3.8 (3.5-5.0) g/dL Calcium panel 02/18/23 02/19/23 02/19/23 Range/Units 21:00 01:45 03:29 Calcium 8.8 8.8 8.5 (8.4-10.2) mg/dL Albumin 3.8 3.8 (3.5-5.0) g/dL Pituitary panel 02/18/23 02/19/23 02/19/23 Range/Units 21:00 01:45 03:29 Sodium 141 140 139 (137-145) mmol/L Potassium 5.2 H 5.0 4.8 (3.5-5.1) mmol/L Chloride 106 106 105 (98-107) mmol/L Carbon Dioxide 24 24 22 (22-30) mmol/L BUN 25 H 26 H 26 H (9-20) mg/dL Creatinine 1.42 H 1.49 H 1.51 H (0.66-1.25) mg/dL Glucose 175 H 185 H 247 H (74-99) mg/dL Calcium 8.8 8.8 8.5 (8.4-10.2) mg/dL Adrenal panel 02/18/23 02/19/23 02/19/23 Range/Units 21:00 01:45 03:29 Sodium 141 140 139 (137-145) mmol/L Potassium 5.2 H 5.0 4.8 (3.5-5.1) mmol/L Chloride 106 106 105 (98-107) mmol/L Carbon Dioxide 24 24 22 (22-30) mmol/L BUN 25 H 26 H 26 H (9-20) mg/dL Creatinine 1.42 H 1.49 H 1.51 H (0.66-1.25) mg/dL Glucose 175 H 185 H 247 H (74-99) mg/dL Calcium 8.8 8.8 8.5 (8.4-10.2) mg/dL Total Bilirubin 0.5 0.5 (0.2-1.3) mg/dL AST 22 21 (17-59) U/L ALT 21 21 (4-49) U/L Alkaline Phosphatase 72 73 (38-126) U/L Total Protein 6.5 6.4 (6.3-8.2) g/dL Albumin 3.8 3.8 (3.5-5.0) g/dL - Imaging CT scan - abdomen: report reviewed, image reviewed Assessment and Plan Assessment: The patient has urinary clot retention of unknown etiology. He has a Bella cat heter placed but it cannot be irrigated. (1) Gross hematuria Current Visit: Yes Status: Acute Code(s): R31.0 - GROSS HEMATURIA SNOMED Code(s): 023949527 (2) Urinary retention Current Visit: Yes Status: Acute Code(s): R33.9 - RETENTION OF URINE, UNSPECIFIED SNOMED Code(s): 906130529 (3) Prostate nodule Current Visit: Yes Status: Acute Code(s): N40.2 - NODULAR PROSTATE WITHOUT LOWER URINARY TRACT SYMPTOMS SNOMED Code(s): 336256351388813 Plan: Cystoscopy, evacuation of clot, fulguration of bleeders. If a bladder tumor is identified, this will be transurethrally resected. This been reviewed in detail with the patient, who wishes to proceed. He is aware of potential risks, which include anesthesia, persistent bleeding, and bladder perforation. Time with Patient: Greater than 30
[2023-02-19] MEDS ORDERED: NITROGLYCERIN SL TABS 0.4 MG TAB SUBLINGUAL PRN (12:34)
[2023-02-19] MEDS: PANTOPRAZOLE 40 MG/10 ML VIAL IVP SCH (13:46)
[2023-02-19] MEDS: HYDROmorphone 0.5 MG/0.5 ML SYRINGE IVP PRN (13:48)
--- NOTE | 2023-02-19 13:48 | HP ---
HISTORY AND PHYSICAL CHIEF COMPLAINT: Hematuria. HISTORY OF PRESENT ILLNESS: This is a 77-year-old gentleman with a past medical history of multiple medical problems including diabetes mellitus, CAD, being followed by Dr. Ang in the outpatient setting. He was noted to have hematuria since last night. The patient has some difficulty in micturition also. The patient has some pain in the suprapubic area. The patient has vomiting also. The patient is found to have bladder mass in the CAT scan and after putting even the urinary catheter, the staff has difficulty in irrigation also. Urology is planning cystoscopy and possible resection of the mass today. There is some thickening of the stomach wall with some possibly gas in the gastric and gastric francois. I have discussed the case with Dr. Bermudez, who will evaluate the patient for possible endoscope. There is no history of any fever, rigors, or chills. PAST MEDICAL HISTORY: Reviewed include CAD, diabetes mellitus, hypertension, hyperlipidemia. Rest of the history and rest of the chart is also reviewed. HOME MEDICATIONS: Reviewed include trazodone, dose and rest of medications reviewed. ALLERGIES: None. FAMILY HISTORY: History of myocardial infarction, CABG. SOCIAL HISTORY: Previous history of smoking. REVIEW OF SYSTEMS: Fourteen-point review is negative except as mentioned earlier. PHYSICAL EXAMINATION: VITAL SIGNS: Pulse is 82, blood pressure 140/70, respirations 15. HEENT: Conjunctivae normal. NECK: No JVD. CARDIOVASCULAR: S1, S2 muffled. RESPIRATIONS: Clear to auscultation. ABDOMEN: Soft, mild diffuse distention. Otherwise, nontender. No guarding. No rigidity. Bowel sounds diminished. No ascites. LEGS: No edema. No swelling. NERVOUS SYSTEM: No focal deficits. SKIN: No ulcer, rash, or bleeding. JOINTS: No active deforming arthropathy. LYMPHATICS: No lymph nodes. LABORATORY STUDIES: WBC 13.7, rest of the labs are noted. ASSESSMENT: 1. Hematuria with bladder mass for evaluation. 2. Vomiting, rule out hypertrophic gastritis. 3. Elevated WBC, possibly reactive. 4. Acute renal failure, possibly post obstructive. 5. History of diabetes mellitus type 2. 6. Hypertension. 7. Hyperlipidemia. 8. Coronary artery disease stent. 9. Multiple medical issues. RECOMMENDATION: This is a 77-year-old gentleman with a past medical history of multiple medical problems. At this time, I recommend continue the current medications. Continue symptomatic treatment. I would recommend follow with Urology closely. Lactic acid. Surgical evaluation, possibly endoscopies. Repeat labs. He will monitor creatinine closely. Hold off nephrotoxic medications. Also recommend Cardiology evaluation. Prognosis guarded because of multiple complex medical issues. Further recommendations to follow. MMODL / IJN: [id number] /
--- NOTE | 2023-02-19 14:31 | P.GSCN ---
History of Present Illness Consult date: 02/19/23 History of present illness: CHIEF COMPLAINT: Hematuria HISTORY OF PRESENT ILLNESS: This is a 77-year-old male who presented to the hospital with gross hematuria 2 days. He is also had difficulty voiding. He complains of suprapubic pain. Patient does have a known history of smoking. He does take Plavix. Last dose of Plavix was yesterday. Patient had computed to mography scan abdomen and pelvis that showed a large heterogenous appearing urinary bladder with minimal contrast present on delayed images. A polypoid mass along the anterior lateral left urinary bladder is not excluded. Patient followed by urology as scheduled for cystoscopy today. Patient denies any epigastric abdominal pain. Last EGD was about 5 years ago and reported as normal. Surgical consult has been placed for gastric wall thickening. PAST MEDICAL HISTORY: See below PAST SURGICAL HISTORY: See below MEDICATIONS: See below ALLERGIES: See below SOCIAL HISTORY: No illicit drug use. REVIEW OF SYSTEMS: CONSTITUTIONAL: Denies fever or chills. HEENT: Denies blurred vision, vision changes, or eye pain. Denies hemoptysis CARDIOVASCULAR: Denies chest pain or pressure. RESPIRATORY: No shortness of breath. GASTROINTESTINAL: See HPI for pertinent findings HEMATOLOGIC: Denies bleeding disorders. GENITOURINARY: Denies any blood in urine or increased urinary frequency. SKIN: Denies pruitis. Denies rash. PHYSICAL EXAM: VITAL SIGNS: Reviewed GENERAL: Well-developed in no acute distress. ABDOMEN: Soft. Tenderness with palpation of suprapubic area NEUROLOGIC: Alert and oriented. Cranial nerves II through XII grossly intact. LABORATORY DATA: WBC 13.7 hgb 9.7 platelets 184 Sodium 139 potassium 4.8 creatinine 1.51 IMAGING: Computed tomography scan large heterogenous appearing urinary bladder with minimal contrast present on delayed images. Minimal fluid may be present within the dependent urinary bladder adjacent contrast. Urinary bladder appears to be otherwise filled with debris. Polyploid mass along the anterior lateral left urinary bladder is not excluded. ASSESSMENT: 1. Possible gastric wall thickening 2. Gross hematuria polyploid mass noted in urinary bladder 3. History of coronary artery disease with cardiac stents PLAN: -Further recommendations forthcoming per surgeon -Continue urological workup -Continue to hold Plavix -Continue supportive care Physician Processing Archivist note has been reviewed by physician. Signing provider agrees with the documented findings, assessment, and plan of care. Past Medical History Past Medical History: Coronary Artery Disease (CAD), Chest Pain / Angina, Diabet es Mellitus, GERD/Reflux, Hyperlipidemia, Hypertension, Myocardial Infarction ([place]), Prostate Disorder Last Myocardial Infarction Date:: 01/13/14 History of Any Multi-Drug Resistant Organisms: None Reported Past Surgical History: Heart Catheterization With Stent Additional Past Surgical History / Comment(s): X4. STENTS Past Anesthesia/Blood Transfusion Reactions: No Reported Reaction Date of Last Stent Placement:: 2013 Past Psychological History: No Psychological Hx Reported Smoking Status: Former smoker Past Alcohol Use History: None Reported Past Drug Use History: None Reported - Past Family History Brother(s) Family Medical History: Myocardial Infarction ([place]) Additional Family Medical History / Comment(s): CABG Medications and Allergies Home Medications Medication Instructions Recorded Confirmed Type Ergocalciferol [Vitamin D2 50,000 unit PO Q14D 01/13/14 02/18/23 History (DRISDOL)] Finasteride 5 mg PO DAILY 01/13/14 02/18/23 History Tamsulosin [Flomax] 0.4 mg PO HS 01/13/14 02/18/23 History atenoloL 50 mg PO DAILY 01/13/14 02/18/23 History atenoloL [Tenormin] 25 mg PO HS 01/13/14 02/18/23 History metFORMIN HCL 500 mg PO BID-W/MEALS 04/25/16 02/18/23 History Clopidogrel [Plavix] 75 mg PO DAILY tab 04/28/16 02/18/23 Rx Nitroglycerin Sl Tabs [Nitrostat] 0.4 mg SUBLINGUAL Q5M PRN #25 tab 04/28/16 02/18/23 Rx Amitriptyline HCl [Elavil] 10 mg PO HS 02/18/23 02/18/23 History Atorvastatin [Lipitor] 40 mg PO HS 02/18/23 02/18/23 History Cetirizine HCl [Zyrtec] 10 mg PO DAILY 02/18/23 02/18/23 History Fluticasone Nasal [place] [Flonase 1 spray EA NOSTRIL BID 02/18/23 02/18/23 History Nasal [place]] Gabapentin 300 mg PO DAILY 02/18/23 02/18/23 History Losartan Potassium 100 mg PO DAILY 02/18/23 02/18/23 History Pantoprazole [Protonix] 40 mg PO DAILY 02/18/23 02/18/23 History hydrALAZINE HCL [Apresoline] 25 mg PO BID-W/MEALS 02/18/23 02/18/23 History Allergies Allergy/AdvReac Type Severity Reaction Status Date / Time No Known Allergies Allergy Verified 02/18/23 21:45 Surgical - Exam Vital Signs Pulse Resp BP Pulse Ox 69 18 185/88 98 02/18/23 18:20 02/18/23 18:20 02/18/23 18:20 02/18/23 18:20 Results - Labs 02/19/23 03:29 02/19/23 03:29 Abnormal Lab Results - Last 24 Hours (Table) 02/18/23 02/18/23 02/19/23 Range/Units 21:00 21:00 00:50 WBC 13.2 H 13.6 H (3.8-10.6) k/uL RBC 3.43 L 3.20 L (4.30-5.90) m/uL Hgb 10.6 L 10.0 L (13.0-17.5) gm/dL Hct 31.4 L 29.1 L (39.0-53.0) % Neutrophils # 11.3 H 11.2 H (1.3-7.7) k/uL Potassium 5.2 H (3.5-5.1) mmol/L BUN 25 H (9-20) mg/dL Creatinine 1.42 H (0.66-1.25) mg/dL Glucose 175 H (74-99) mg/dL 02/19/23 02/19/23 02/19/23 Range/Units 01:45 03:29 03:29 WBC 13.7 H (3.8-10.6) k/uL RBC 3.21 L (4.30-5.90) m/uL Hgb 9.7 L (13.0-17.5) gm/dL Hct 30.0 L (39.0-53.0) % Neutrophils # 11.3 H (1.3-7.7) k/uL Potassium (3.5-5.1) mmol/L BUN 26 H 26 H (9-20) mg/dL Creatinine 1.49 H 1.51 H (0.66-1.25) mg/dL Glucose 185 H 247 H (74-99) mg/dL Diabetes panel 02/18/23 02/19/23 02/19/23 Range/Units 21:00 01:45 03:29 Sodium 141 140 139 (137-145) mmol/L Potassium 5.2 H 5.0 4.8 (3.5-5.1) mmol/L Chloride 106 106 105 (98-107) mmol/L Carbon Dioxide 24 24 22 (22-30) mmol/L BUN 25 H 26 H 26 H (9-20) mg/dL Creatinine 1.42 H 1.49 H 1.51 H (0.66-1.25) mg/dL Glucose 175 H 185 H 247 H (74-99) mg/dL Calcium 8.8 8.8 8.5 (8.4-10.2) mg/dL AST 22 21 (17-59) U/L ALT 21 21 (4-49) U/L Alkaline Phosphatase 72 73 (38-126) U/L Total Protein 6.5 6.4 (6.3-8.2) g/dL Albumin 3.8 3.8 (3.5-5.0) g/dL Calcium panel 02/18/23 02/19/23 02/19/23 Range/Units 21:00 01:45 03:29 Calcium 8.8 8.8 8.5 (8.4-10.2) mg/dL Albumin 3.8 3.8 (3.5-5.0) g/dL Pituitary panel 02/18/23 02/19/23 02/19/23 Range/Units 21:00 01:45 03:29 Sodium 141 140 139 (137-145) mmol/L Potassium 5.2 H 5.0 4.8 (3.5-5.1) mmol/L Chloride 106 106 105 (98-107) mmol/L Carbon Dioxide 24 24 22 (22-30) mmol/L BUN 25 H 26 H 26 H (9-20) mg/dL Creatinine 1.42 H 1.49 H 1.51 H (0.66-1.25) mg/dL Glucose 175 H 185 H 247 H (74-99) mg/dL Calcium 8.8 8.8 8.5 (8.4-10.2) mg/dL Adrenal panel 02/18/23 02/19/23 02/19/23 Range/Units 21:00 01:45 03:29 Sodium 141 140 139 (137-145) mmol/L Potassium 5.2 H 5.0 4.8 (3.5-5.1) mmol/L Chloride 106 106 105 (98-107) mmol/L Carbon Dioxide 24 24 22 (22-30) mmol/L BUN 25 H 26 H 26 H (9-20) mg/dL Creatinine 1.42 H 1.49 H 1.51 H (0.66-1.25) mg/dL Glucose 175 H 185 H 247 H (74-99) mg/dL Calcium 8.8 8.8 8.5 (8.4-10.2) mg/dL Total Bilirubin 0.5 0.5 (0.2-1.3) mg/dL AST 22 21 (17-59) U/L ALT 21 21 (4-49) U/L Alkaline Phosphatase 72 73 (38-126) U/L Total Protein 6.5 6.4 (6.3-8.2) g/dL Albumin 3.8 3.8 (3.5-5.0) g/dL
--- NOTE | 2023-02-19 14:56 | XR ---
EXAMINATION TYPE: XR chest 1V portable DATE OF EXAM: 02/19/2023 Comparison: 01/13/2014 Clinical History: 77-year-old male CHF Findings: Patient is rotated towards the right altering the normal cardiomediastinal contours. Heart mildly enl arged. Some hazy density at the right base with blunted costophrenic angle. Strandy atelectasis right lower lung. No consolidation seen. Impression: Limited, rotated exam. There is mild cardiomegaly with possible trace right effusion. Findings may re flect sequela of mild CHF. No fredy pulmonary vascular congestion or pulmonary edema.
[2023-02-19] MEDS: metFORMIN 500 MG TAB PO SCH (16:51)
[2023-02-19] MEDS ORDERED: LACTATED RINGERS 1,000 ML IV ONE ×5 (16:52→23:15)
[2023-02-19] MEDS ORDERED: ONDANSETRON 4 MG/2 ML VIAL IVP ONE (16:56)
[2023-02-19] MEDS ORDERED: DEXAMETHASONE SOD PHOSPHATE 4 MG/ML 1 ML VIAL IVP ONE (16:57)
[2023-02-19] MEDS ORDERED: fentaNYL (PF) 50 MCG/ML 2 ML AMP IVP ONE (17:05)
[2023-02-19] MEDS ORDERED: fentaNYL (PF) 50 MCG/1 ML VIAL IVP ONE (17:20)
[2023-02-19] MEDS ORDERED: PHENYLEPHRINE-0.9% NACL SYG 1,000 MCG/10 ML SYRINGE ONE (17:57)
[2023-02-19] MEDS ORDERED: PROPOFOL 10 MG/ML 20 ML VIAL IV ONE (17:57)
[2023-02-19] MEDS ORDERED: LIDOCAINE 2% INJ 20 MG/ML (2 ML VIAL) ONE (17:57)
[2023-02-19] MEDS ORDERED: NEOSTIGMINE 1 MG/ML 10 ML VIAL ONE (17:57)
[2023-02-19] MEDS ORDERED: ROCURONIUM 10 MG/ML (5 ML VIAL) IV ONE (17:57)
[2023-02-19] MEDS ORDERED: GLYCOPYRROLATE 0.2 MG/ML 2 ML VIAL ONE (17:57)
[2023-02-19] MEDS ORDERED: ONDANSETRON 4 MG/2 ML VIAL ONE (17:57)
[2023-02-19] MEDS ORDERED: fentaNYL (PF) 50 MCG/ML 2 ML AMP ONE (17:57)
[2023-02-19] MEDS ORDERED: SODIUM CHLORIDE 0.9% 50 ML with ceFAZolin 2,000 MG IV ONE ×2 (18:23)
[2023-02-19] MEDS ORDERED: ALBUTEROL NEBULIZED 2.5 MG/3 ML INHALATION ONE (21:54)
[2023-02-19] MEDS ORDERED: HYDROmorphone 0.5 MG/0.5 ML SYRINGE IVP ONE (22:06)
[2023-02-19] MEDS ORDERED: MIDAZOLAM 2 MG/2 ML VIAL IVP ONE (22:34)
[2023-02-19] MEDS ORDERED: ceFAZolin 1 GM in SODIUM CHLORIDE 0.9% 100 ML IVPB SCH (23:00)
[2023-02-19 23:01] LABS: Basophils # (A) 0.1 k/uL (0-0.2); Basophils % (A) 0 %; Eosinophils # (A) 0.4 k/uL (0-0.7); Eosinophils % (A) 1 %; HCT 26.2 % (39.0-53.0); HGB 8.4 gm/dL (13.0-17.5); Hypochromasia Marked; Lymphocytes # (A) 2.7 k/uL (1.0-4.8); Lymphocytes % (A) 11 %; MCH 31.1 pg (25.0-35.0); MCHC 31.9 g/dL (31.0-37.0); MCV 97.4 fL (80.0-100.0); Mean Platelet Volume 7.8; Monocytes # (A) 1.1 k/uL (0-1.0); Monocytes % (A) 4 %; Neutrophils % (A) 82 %; Platelet Count 222 k/uL (150-450); RBC 2.69 m/uL (4.30-5.90); RDW 13.9 % (11.5-15.5); WBC 24.3 k/uL (3.8-10.6)
[2023-02-19 23:11] LABS: Potassium 5.1 mmol/L (3.5-5.1)
[2023-02-19] MEDS ORDERED: SODIUM BICARB 8.4% 50 ML SYR (1 MEQ/ML) IV ONE (23:33)
[2023-02-19 23:44] LABS: Glucose,Whole Blood 183 mg/dL (70-110)
[2023-02-20 00:06] LABS: ABG Base Excess -6.7 mmol/L; ABG HCO3 21 mmol/L (21-25); ABG Oxygen Saturation 97.1 % (94-97); ABG PCO2 47 mmHg (35-45); ABG PH 7.25 (7.35-7.45); ABG PO2 113 mmHg (83-108); ABG TCO2 22 mmol/L (19-24); Allen Test Performed? Yes
[2023-02-20 00:40] LABS: Glucose,Whole Blood 187 mg/dL (70-110)
[2023-02-20] MEDS: DEXMEDETOMIDINE/0.9% NACL(PMX) 400 MCG in EMPTY BAG 1 BAG IV SCH (00:46)
[2023-02-20] MEDS: AMITRIPTYLINE HCL 10 MG TAB PO SCH ×2 (00:46→21:00)
[2023-02-20] MEDS: SODIUM CHLORIDE 0.9% IRRIGATIO 3,000 ML IRRIGATION SCH (00:46)
[2023-02-20] MEDS: PANTOPRAZOLE 40 MG/10 ML VIAL IVP SCH ×3 (00:47→19:48)
[2023-02-20] MEDS: ATORVASTATIN 40 MG TAB PO SCH ×2 (00:47→19:48)
[2023-02-20] MEDS: FLUTICASONE 50MCG/SPRAY NASAL 16GM EA NOSTRIL SCH ×3 (00:47→21:00)
[2023-02-20] MEDS: atenoloL 25 MG TAB PO SCH ×2 (00:47→21:00)
[2023-02-20] MEDS: TAMSULOSIN 0.4 MG CAP.ER.24H PO SCH ×2 (00:47→19:48)
[2023-02-20] MEDS: HYDROmorphone 1 MG/ML 1 ML SYRINGE IVP PRN (02:34)
[2023-02-20 04:17] LABS: Basophils % (A) 0 %; Eosinophils # (A) 0.1 k/uL (0-0.7); Eosinophils % (A) 1 %; HCT 22.8 % (39.0-53.0); HGB 7.6 gm/dL (13.0-17.5); Lymphocytes # (A) 0.5 k/uL (1.0-4.8); Lymphocytes % (A) 6 %; MCH 31.3 pg (25.0-35.0); MCHC 33.4 g/dL (31.0-37.0); MCV 93.7 fL (80.0-100.0); Mean Platelet Volume 8.1; Monocytes # (A) 0.6 k/uL (0-1.0); Monocytes % (A) 7 %; Neutrophils # (A) 7.4 k/uL (1.3-7.7); Neutrophils % (A) 85 %; Platelet Count 135 k/uL (150-450); RBC 2.44 m/uL (4.30-5.90); RDW 14.1 % (11.5-15.5); WBC 8.8 k/uL (3.8-10.6)
[2023-02-20 04:26] LABS: African American GFR (CKD) 35 (>60 ml/min/1.73 sqM); Anion Gap 5 mmol/L; Blood Urea Nitrogen 39 mg/dL (9-20); Calcium 7.5 mg/dL (8.4-10.2); Carbon Dioxide 27 mmol/L (22-30); Chloride 109 mmol/L (98-107); Glucose 141 mg/dL (74-99); Non-African American GFR(CKD) 30 (>60 ml/min/1.73 sqM); Potassium 5.9 mmol/L (3.5-5.1); Sodium 141 mmol/L (137-145)
[2023-02-20] MEDS: SODIUM CHLORIDE 0.9% 1,000 ML IV SCH ×2 (04:56→16:14)
[2023-02-20] MEDS ORDERED: INSULIN REGULAR 100 UNIT/ML VIAL (IV) IV ONE (05:14)
[2023-02-20] MEDS ORDERED: CALCIUM GLUCONATE IN NACL 1 GM in SALINE 1 100ML.BAG IVPB ONE (05:14)
[2023-02-20] MEDS ORDERED: DEXTROSE 50% SYRINGE 50 ML IVP STA (05:14)
[2023-02-20 05:39] LABS: Glucose,Whole Blood 131 mg/dL (70-110)
[2023-02-20 06:05] LABS: Glucose,Whole Blood 179 mg/dL (70-110)
[2023-02-20] MEDS: metFORMIN 500 MG TAB PO SCH ×2 (06:37→16:00)
[2023-02-20] MEDS: hydrALAZINE HCL 25 MG TAB PO SCH (06:37)
--- NOTE | 2023-02-20 07:20 | XR ---
EXAMINATION TYPE: XR chest 1V DATE OF EXAM: 02/20/2023 HISTORY: Shortness of breath. COMPARISON: 02/19/2023 TECHNIQUE: Single view of the chest is submitted. FINDINGS: Demonstrated are scattered senescent parenchymal change. There is no evidence for focal infiltrate. The heart is stable. Hilar and mediastinal structures are within normal limits. Degenerative changes are seen of the dorsal spine. IMPRESSION: 1. Chronic changes without evidence for acute pulmonary disease.
[2023-02-20] MEDS: NICOTINE 14MG/24HR PATCH TRANSDERM SCH (10:11)
--- NOTE | 2023-02-20 10:14 | P.CNPUL ---
History of Present Illness Consult date: 02/20/23 Requesting physician: Machelle Lynch Reason for consult: other (Critical care management) Chief complaint: Difficulty with urination History of present illness: This is a 77-year-old male patient with a known history of benign prostatic hyperplasia, hypertension, hyperlipidemia, coronary artery disease with previous stent placements, diabetes mellitus, gastroesophageal reflux disease. He presen juany here to the emergency room on 02/18/2023 with complaints of difficulty in urination and blood in his urine. He was having suprapubic pain and difficulty making any urine. Ultrasound of the bladder revealed a mass or debris-filled urinary bladder. Bilateral renal cyst. Computed tomography scan of the abdomen and pelvis revealed a large heterogenous-appearing urinary bladder with minimal contrast present on delayed images. Urinary bladder appears to be filled with debris. Polypoid mass along the anterior lateral left urinary bladder was not excluded. On 02/19/2023 had undergone a cystoscopy with evacuation of clots, exploratory laparotomy, open excision of bladder tumor and repair of bladder laceration. A suprapubic catheter was placed. Late last night and early this morning the patient developed confusion and agitation. He was having rhonchorous respirations as well. He was subsequently transferred to the intensive care unit and placed on BiPAP 10/5 on 30% FiO2. His restlessness and confusion required Precedex infusion currently at 0.4 mcg/kg per hour. Chest x- ray reveals chronic changes without evidence for acute pulmonary disease. He is more calm and cooperative. He will be transitioned to nasal cannula. Continuous bladder irrigation is present. Heme no hematuria noted in urine output. He has normal saline at 75 ML's per hour. Antibiotics in the form of cefazolin. White count 8.8. Hemoglobin 7.6. Platelets 135. Arterial blood gases on 40% FiO2 had revealed a PaO2 of 113, pCO2 47, pH 7.25. Sodium 141. Potassium 5.9. Bicarb 27. BUN 39. Creatinine 2.07. Glucose 141. Lactic acid 4.0. Review of Systems ROS unobtainable: due to mental status Past Medical History Past Medical History: Coronary Artery Disease (CAD), Chest Pain / Angina, Diabetes Mellitus, GERD/Reflux, Hyperlipidemia, Hypertension, Myocardial Infarction ([place]), Prostate Disorder Last Myocardial Infarction Date:: 01/13/14 History of Any Multi-Drug Resistant Organisms: None Reported Past Surgical History: Heart Catheterization With Stent Additional Past Surgical History / Comment(s): X4. STENTS Past Anesthesia/Blood Transfusion Reactions: No Reported Reaction Date of Last Stent Placement:: 2013 Past Psychological History: No Psychological Hx Reported Smoking Status: Former smoker Past Alcohol Use History: None Reported Past Drug Use History: None Reported - Past Family History Brother(s) Family Medical History: Myocardial Infarction ([place]) Additional Family Medical History / Comment(s): CABG Medications and Allergies Home Medications Medication Instructions Recorded Confirmed Type Ergocalciferol [Vitamin D2 50,000 unit PO Q14D 01/13/14 02/18/23 History (DRISDOL)] Finasteride 5 mg PO DAILY 01/13/14 02/18/23 History Tamsulosin [Flomax] 0.4 mg PO HS 01/13/14 02/18/23 History atenoloL 50 mg PO DAILY 01/13/14 02/18/23 History atenoloL [Tenormin] 25 mg PO HS 01/13/14 02/18/23 History metFORMIN HCL 500 mg PO BID-W/MEALS 04/25/16 02/18/23 History Clopidogrel [Plavix] 75 mg PO DAILY tab 04/28/16 02/18/23 Rx Nitroglycerin Sl Tabs [Nitrostat] 0.4 mg SUBLINGUAL Q5M PRN #25 tab 04/28/16 02/18/23 Rx Amitriptyline HCl [Elavil] 10 mg PO HS 02/18/23 02/18/23 History Atorvastatin [Lipitor] 40 mg PO HS 02/18/23 02/18/23 History Cetirizine HCl [Zyrtec] 10 mg PO DAILY 02/18/23 02/18/23 History Fluticasone Nasal [place] [Flonase 1 spray EA NOSTRIL BID 02/18/23 02/18/23 History Nasal [place]] Gabapentin 300 mg PO DAILY 02/18/23 02/18/23 History Losartan Potassium 100 mg PO DAILY 02/18/23 02/18/23 History Pantoprazole [Protonix] 40 mg PO DAILY 02/18/23 02/18/23 History hydrALAZINE HCL [Apresoline] 25 mg PO BID-W/MEALS 02/18/23 02/18/23 History Allergies Allergy/AdvReac Type Severity Reaction Status Date / Time No Known Allergies Allergy Verified 02/18/23 21:45 Physical Exam Vitals: Vital Signs Temp Pulse Pulse Pulse Resp BP BP 02/20/23 07:33 02/20/23 07:00 74 18 115/67 02/20/23 06:30 80 16 163/78 02/20/23 06:00 93 18 132/71 02/20/23 05:30 72 18 128/72 02/20/23 05:00 70 20 125/68 02/20/23 04:30 72 18 116/64 02/20/23 04:00 97.7 F 69 16 120/63 02/20/23 03:56 20 02/20/23 03:49 02/20/23 03:30 71 20 111/64 02/20/23 03:00 73 110/62 02/20/23 02:45 74 151/79 02/20/23 02:30 80 130/67 02/20/23 02:15 72 123/65 02/20/23 02:00 98.2 F 74 122/70 02/20/23 01:50 73 122/70 02/20/23 01:40 76 131/72 02/20/23 01:30 81 119/65 02/20/23 01:20 80 119/65 02/20/23 01:10 81 161/90 02/20/23 01:00 90 16 131/72 02/20/23 00:50 93 177/79 02/20/23 00:40 101 H 161/85 02/20/23 00:31 02/20/23 00:30 100 20 167/98 02/20/23 00:20 29 H 167/98 02/20/23 00:17 100 27 H 02/19/23 23:45 84 18 02/19/23 23:19 92 18 02/19/23 23:04 85 18 02/19/23 22:49 82 16 02/19/23 22:34 83 16 02/19/23 22:19 82 18 02/19/23 22:04 85 18 02/19/23 21:49 93 18 02/19/23 21:34 96.8 F L 81 20 02/19/23 17:23 70 16 02/19/23 17:19 68 16 02/19/23 16:50 98 F 67 16 02/19/23 14:12 98.2 F 78 188/109 02/19/23 12:10 97.8 F 72 18 179/79 BP Pulse Ox FiO2 02/20/23 07:33 30 02/20/23 07:00 98 02/20/23 06:30 99 02/20/23 06:00 97 02/20/23 05:30 99 02/20/23 05:00 100 02/20/23 04:30 99 02/20/23 04:00 99 02/20/23 03:56 02/20/23 03:49 30 02/20/23 03:30 98 02/20/23 03:00 97 02/20/23 02:45 97 02/20/23 02:30 97 02/20/23 02:15 99 02/20/23 02:00 98 02/20/23 01:50 99 02/20/23 01:40 96 02/20/23 01:30 97 02/20/23 01:20 98 02/20/23 01:10 98 02/20/23 01:00 95 02/20/23 00:50 98 02/20/23 00:40 100 30 02/20/23 00:31 40 02/20/23 00:30 99 02/20/23 00:20 97 02/20/23 00:17 97 02/19/23 23:45 166/92 97 02/19/23 23:19 165/70 98 02/19/23 23:04 142/70 98 02/19/23 22:49 130/69 99 02/19/23 22:34 122/68 98 02/19/23 22:19 140/85 97 02/19/23 22:04 160/88 99 02/19/23 21:49 162/90 97 02/19/23 21:34 148/88 95 02/19/23 17:23 164/88 97 02/19/23 17:19 148/108 98 02/19/23 16:50 169/87 94 L 02/19/23 14:12 96 02/19/23 12:10 93 L Intake and Output 02/19/23 02/20/23 02/20/23 22:59 06:59 14:59 Intake Total 2050 754.081 330.134 Output Total 1050 0 200 Balance 1000 -1335.919 130.134 Intake: IV 2049 200 Intake, IV Titration 554.081 330.134 Amount Calcium Gluconate in NaCl 100 1 gm In Saline 1 100ml. bag @ 100 mls/hr IVPB ONCE ONE Rx#:[id number] Dexmedetomidine/0.9% NaCl 4.081 55.134 (Pmx) 400 mcg In Empty Bag 1 bag @ 0.2 MCG/KG/HR 3.856 mls/hr IV .Q24H [facility] Rx#:[id number] Sodium Chloride 0.9% 1, 450 75 000 ml @ 75 mls/hr IV . [id number] [facility] Rx#:[id number] Sodium Chloride 0.9% 50 100 ml @ 0 mls/hr IV .STK-MED ONE with ceFAZolin 2,000 mg Rx#:[id number] ceFAZolin 1,000 mg In 100 Sodium Chloride 0.9% 50 ml @ 100 mls/hr IVPB Q8H [facility] Rx#:[id number] Output: Drainage 40 Lower Abdomen 40 Urine 1000 2049 200 Estimated Blood Loss 50 Other: Voiding Method Indwelling Catheter Indwelling Catheter Weight 77.111 kg 90 kg GENERAL EXAM: Arousable, 77-year-old male, on BiPAP 10/5 and 30% FiO2, comfortable in no apparent distress. HEAD: Normocephalic. EYES: Normal reaction of pupils, equal size. NOSE: Clear with pink turbinates. THROAT: No erythema or exudates. NECK: No masses, no JVD. CHEST: No chest wall deformity. LUNGS: Equal air entry with no crackles, wheeze, rhonchi or dullness. CVS: S1 and S2 normal with no audible murmur, regular rhythm. ABDOMEN: Suprapubic catheter in place. CBI. No hepatosplenomegaly, normal bowel sounds, no guarding or rigidity. SPINE: No scoliosis or deformity SKIN: No rashes CENTRAL NERVOUS SYSTEM: No focal deficits, tone is normal in all 4 extremities. EXTREMITIES: There is no peripheral edema. No clubbing, no cyanosis. Peripheral pulses are intact. Results - Laboratory Findings CBC and BMP: 02/20/23 03:39 02/20/23 03:39 ABG ABG pH 7.25 (7.35-7.45) L 02/20/23 00:04 ABG pCO2 47 mmHg (35-45) H 02/20/23 00:04 ABG pO2 113 mmHg (83-108) H 02/20/23 00:04 ABG O2 Saturation 97.1 % (94-97) H 02/20/23 00:04 Abnormal lab findings: Abnormal Labs 02/18/23 02/18/23 02/19/23 21:00 21:00 00:50 WBC 13.2 H 13.6 H RBC 3.43 L 3.20 L Hgb 10.6 L 10.0 L Hct 31.4 L 29.1 L Plt Count Neutrophils # 11.3 H 11.2 H Lymphocytes # Monocytes # ABG pH ABG pCO2 ABG pO2 ABG O2 Saturation Potassium 5.2 H Chloride Carbon Dioxide BUN 25 H Creatinine 1.42 H Glucose 175 H POC Glucose (mg/dL) Plasma Lactic Acid Bull Calcium 02/19/23 02/19/23 02/19/23 01:45 03:29 03:29 WBC 13.7 H RBC 3.21 L Hgb 9.7 L Hct 30.0 L Plt Count Neutrophils # 11.3 H Lymphocytes # Monocytes # ABG pH ABG pCO2 ABG pO2 ABG O2 Saturation Potassium Chloride Carbon Dioxide BUN 26 H 26 H Creatinine 1.49 H 1.51 H Glucose 185 H 247 H POC Glucose (mg/dL) Plasma Lactic Acid Bull Calcium 02/19/23 02/19/23 02/19/23 15:10 22:50 22:50 WBC 24.3 H RBC 2.69 L Hgb 8.4 L Hct 26.2 L Plt Count Neutrophils # 20.0 H Lymphocytes # Monocytes # 1.1 H ABG pH ABG pCO2 ABG pO2 ABG O2 Saturation Potassium Chloride Carbon Dioxide BUN Creatinine Glucose POC Glucose (mg/dL) Plasma Lactic Acid Bull 2.4 H* 8.1 H* Calcium 02/19/23 02/19/23 02/20/23 22:51 23:37 00:04 WBC RBC Hgb Hct Plt Count Neutrophils # Lymphocytes # Monocytes # ABG pH 7.25 L ABG pCO2 47 H ABG pO2 113 H ABG O2 Saturation 97.1 H Potassium Chloride 108 H Carbon Dioxide 17 L BUN Creatinine Glucose POC Glucose (mg/dL) 183 H Plasma Lactic Acid Bull Calcium 02/20/23 02/20/23 02/20/23 00:37 03:39 03:39 WBC RBC 2.44 L Hgb 7.6 L Hct 22.8 L Plt Count 135 L Neutrophils # Lymphocytes # 0.5 L Monocytes # ABG pH ABG pCO2 ABG pO2 ABG O2 Saturation Potassium 5.9 H Chloride 109 H Carbon Dioxide BUN 39 H Creatinine 2.07 H Glucose 141 H POC Glucose (mg/dL) 187 H Plasma Lactic Acid Bull Calcium 7.5 L 02/20/23 02/20/23 02/20/23 03:39 05:38 06:03 WBC RBC Hgb Hct Plt Count Neutrophils # Lymphocytes # Monocytes # ABG pH ABG pCO2 ABG pO2 ABG O2 Saturation Potassium Chloride Carbon Dioxide BUN Creatinine Glucose POC Glucose (mg/dL) 131 H 179 H Plasma Lactic Acid Bull 2.2 H* Calcium 02/20/23 07:29 WBC RBC Hgb Hct Plt Count Neutrophils # Lymphocytes # Monocytes # ABG pH ABG pCO2 ABG pO2 ABG O2 Saturation Potassium Chloride Carbon Dioxide BUN Creatinine Glucose POC Glucose (mg/dL) Plasma Lactic Acid Bull 4.0 H* Calcium - Diagnostic Findings Chest x-ray: image reviewed Assessment and Plan Assessment: Hematuria and urinary retention secondary to a large heterogenous-appearing urinary bladder filled with debris. Polypoid mass on the anterior left lateral urinary bladder not excluded. Status post cystoscopy and evacuation of clots, exploratory laparotomy, open excision of bladder tumor area. Bladder l aceration. Postoperative day #1. Suprapubic catheter in place. Continuous bladder irrigation present Anemia secondary to above, current hemoglobin 7.6 Acute renal failure, creatinine 2.07 Altered mental status with agitation and confusion in the postoperative recovery department. Transferred to the intensive care unit. Placed on Precedex infusion Acute hypoxemic respiratory failure recovering BiPAP support Coronary artery disease with previous stent placements History of benign prostatic hyperplasia Hypertension Hyperlipidemia Diabetes mellitus History of chronic tobacco dependence Plan: The patient was seen and evaluated Chest x-ray, ABGs, labs and medications reviewed We'll attempt to transition to nasal cannula Alternate with BiPAP 10/5 and 30% FiO2 Titrate down the Precedex as tolerated We will continue to follow and make further recommendations based on his clinical status I have personally seen and examined the patient, performed the documentation and the assessment and plan as written. Number of minutes spent on the visit: 20.
[2023-02-20] MEDS: GABAPENTIN 300 MG CAP PO SCH (10:35)
[2023-02-20] MEDS: LOSARTAN 50 MG TAB PO SCH (10:36)
[2023-02-20] MEDS: atenoloL 50 MG TAB PO SCH (10:36)
[2023-02-20] MEDS: FINASTERIDE 5 MG TAB PO SCH (10:36)
[2023-02-20] MEDS: LORATADINE 10 MG TAB PO SCH (10:36)
[2023-02-20 11:08] LABS: Glucose,Whole Blood 140 mg/dL (70-110)
--- NOTE | 2023-02-20 11:09 | P.PN ---
Progress Note - Text Progress Note Date: 02/20/23 The patient appears relatively stable in the ICU this morning. The patient will be scheduled for EGD to his gastric wall thickening tomorrow. He'll be made nothing by mouth overnight.
--- NOTE | 2023-02-20 11:37 | P.OP ---
Date of Procedure: 02/19/23 Preoperative Diagnosis: Urinary clot retention Postoperative Diagnosis: Urinary clot retention, bladder perforation, bladder tumor Procedure(s) Performed: Cystoscopy, evacuation of clot, exploratory laparotomy, repair of bladder rupture, excision of bladder tumor Anesthesia: MAX Surgeon: Dae Mcgovern Estimated Blood Loss (ml): 50 IV fluids (ml): 2,000 Pathology: other (Anterior dome bladder tumor) Condition: stable Disposition: PACU Indications for Procedure: The patient is a 77-year-old white male with an unremarkable urologic history. He presented with urinary clot retention. A Bella catheter is not draining, and he now comes for cystoscopy with evacuation of clot. Operative Findings: Over 500 mL of clot removed from bladder. Extraperitoneal bladder rupture was identified at the left bladder dome and repaired. An anterior bladder dome tumor was identified and excised. Description of Procedure: The patient was taken to the operating room and placed in the dorsolithotomy position, with his legs supported in Rashad stirrups. The external genitalia was prepped and draped sterilely. The 30 lens was used to introduce the 22-British Stortz cystoscopic sheath through the urethra and into the bladder under direct vision. The anterior urethra appeared normal. The prostatic urethra showed evidence of bilobar enlargement, with a small median lobe. Upon entering the bladder, abundant clot was noted. The position of the cystoscope was noted as the beak of the cystoscope was at the level of the vesical neck, so that when the Ellik evacuator was used care was taken to ensure that the beak of the cystoscope was only slightly beyond the vesicle neck. Over 500 mL of clot was removed from the bladder. At this time, abdominal examination showed no evidence of suprapubic distention. However, some clot remained adherent to the bladder dome. Close inspection showed a small defect at the left bladder dome, through which fat could be identified, indicative of a bladder perforation. The patient was placed in the supine position, and the abdomen and external genitalia were prepped and draped sterilely. An 18-British Bella catheter was placed. The scalpel was used to make a midline infraumbilical skin incision. The Bovie electrocautery was used to incise the subcutaneous fat and linea alba in the midline, exposing the space of Retzius. The Bella catheter tip was palpated. There was only a small amount of fluid within the space of Retzius. The Bookwalter retractor was used for exposure. The Bovie electrocautery was used to make an anterior midline cystotomy incision. It was not possible to identify the bladder perforation from outside the bladder, and it was presumed to be an intraperitoneal bladder rupture. Therefore, the peritoneum was opened. Some adhesions of the omentum to the peritoneum were divided to approach the area where the bladder was perforated. However, the peritoneum was intact. Dissection was then performed between the peritoneum and the bladder dome, and the bladder perforation was identified from outside the bladder as an extraperitoneal perforation. The bladder was opened more widely, extending the cystotomy incision, and the incision actually went through an anterior bladder dome papillary tumor. Attention was then paid to the tumor, which was circumscribed and removed full-thickness in its entirety. Once this had been completed, attention was paid to the bladder perforation. It was evident that it would be easier to repair the perforation from inside the bladder. 2-0 Vicryl suture was used to close the muscle in a running fashion. The mucosa and superficial muscle were then closed using 3-0 Vicryl suture in a running fashion. An additional row of 2-0 Vicryl running suture was placed outside the bladder to reinforce the closure, thus making it a 3 layer tension-free closure. Next, a separate stab incision was made to the right of the midline incision, and an 18-British Bella catheter was passed through this incision and into the space of Retzius. A small right-sided bladder incision was made, through which the catheter was advanced into the bladder. A pursestring suture was placed around the catheter using 3-0 Vicryl suture. Next, the anterior cystotomy incision was closed in 2 layers. The mucosa was closed using 3-0 Vicryl suture in a running fashion. Muscle was closed using 2-0 Vicryl suture in a running fashion. After completing the bladder closure, the bladder was irrigated through the Bella catheter. Clear irrigant returned through the suprapubic tube, and there was no evidence of extravasation from either bladder incision. The peritoneum was closed using 3-0 Vicryl suture in a running fashion. The space of Retzius was irrigated using warm sterile water. A CHELSEA drain was left overlying the bladder and brought out through a separate stab incision to the left of the midline surgical incision. The linea alba was closed using 0 Vicryl suture in a running fashion. Skin was closed using flaquita. All sponge and needle counts were correct. A sterile gauze dressing was applied over the incision. Continuous bladder irrigation was started using 0.9 normal saline, in through the urethral catheter and out through the suprapubic cystostomy tube. The return was clear. The catheters were secured to the patient's thigh. The CHELSEA drain was left to bulb suction. The patient tolerated the procedure well was taken to the recovery room in stable condition.
--- NOTE | 2023-02-20 11:42 | P.PN ---
Subjective Progress Note Date: 02/20/23 Principal diagnosis: POD #1, s/p evacuation of clot and repair of bladder rupture The patient underwent exploratory laparotomy with repair of bladder rupture yesterday evening. A bladder tumor was excised. He reports minimal discomfort this morning, stating that he feels well. Objective - Vital Signs Vital signs: Vital Signs Temp 98.3 F 02/20/23 08:00 Pulse 92 02/20/23 11:00 Resp 20 02/20/23 08:00 BP 137/99 02/20/23 11:00 Pulse Ox 97 02/20/23 11:00 FiO2 40 02/20/23 08:00 Intake & Output 02/19/23 02/20/23 02/20/23 18:59 06:59 18:59 Intake Total 1050 1754.081 737.491 Output Total 1369 2140 580 Balance -319 -385.919 157.491 Weight 90 kg Intake: IV 1050 1200 Intake, IV Titration 554.081 737.491 Amount Calcium Gluconate in NaCl 100 1 gm In Saline 1 100ml. bag @ 100 mls/hr IVPB ONCE ONE Rx#:[id number] Dexmedetomidine/0.9% NaCl 4.081 62.491 (Pmx) 400 mcg In Empty Bag 1 bag @ 0.2 MCG/KG/HR 3.856 mls/hr IV .Q24H [facility] Rx#:[id number] Sodium Chloride 0.9% 1, 450 375 000 ml @ 75 mls/hr IV . [id number] [facility] Rx#:[id number] Sodium Chloride 0.9% 50 100 ml @ 0 mls/hr IV .STK-MED ONE with ceFAZolin 2,000 mg Rx#:[id number] ceFAZolin 1,000 mg In 200 Sodium Chloride 0.9% 50 ml @ 100 mls/hr IVPB Q8H [facility] Rx#:[id number] Output: Drainage 40 Lower Abdomen 40 Urine 1000 2050 580 Post Void Residual 369 Estimated Blood Loss 50 Other: Voiding Method Indwelling Catheter Indwelling Catheter Indwelling Catheter - Constitutional General appearance: Present: average body habitus, cooperative, no acute distress - Gastrointestinal Gastrointestinal Comment(s): Soft, non-distended. Dressing dry and intact. Continuous bladder irrigation is running, with clear return. Minimal CHELSEA drainage. - Psychiatric Psychiatric: Present: A&O x's 3 - Labs CBC & Chem 7: 02/20/23 03:39 02/20/23 03:39 Labs: Abnormal Lab Results - Last 24 Hours (Table) 02/19/23 02/19/23 02/19/23 Range/Units 15:10 22:50 22:50 WBC 24.3 H (3.8-10.6) k/uL RBC 2.69 L (4.30-5.90) m/uL Hgb 8.4 L (13.0-17.5) gm/dL Hct 26.2 L (39.0-53.0) % Plt Count (150-450) k/uL Neutrophils # 20.0 H (1.3-7.7) k/uL Lymphocytes # (1.0-4.8) k/uL Monocytes # 1.1 H (0-1.0) k/uL ABG pH (7.35-7.45) ABG pCO2 (35-45) mmHg ABG pO2 (83-108) mmHg ABG O2 Saturation (94-97) % Potassium (3.5-5.1) mmol/L Chloride (98-107) mmol/L Carbon Dioxide (22-30) mmol/L BUN (9-20) mg/dL Creatinine (0.66-1.25) mg/dL Glucose (74-99) mg/dL POC Glucose (mg/dL) (70-110) mg/dL Plasma Lactic Acid Bull 2.4 H* 8.1 H* (0.7-2.0) mmol/L Calcium (8.4-10.2) mg/dL 02/19/23 02/19/23 02/20/23 Range/Units 22:51 23:37 00:04 WBC (3.8-10.6) k/uL RBC (4.30-5.90) m/uL Hgb (13.0-17.5) gm/dL Hct (39.0-53.0) % Plt Count (150-450) k/uL Neutrophils # (1.3-7.7) k/uL Lymphocytes # (1.0-4.8) k/uL Monocytes # (0-1.0) k/uL ABG pH 7.25 L (7.35-7.45) ABG pCO2 47 H (35-45) mmHg ABG pO2 113 H (83-108) mmHg ABG O2 Saturation 97.1 H (94-97) % Potassium (3.5-5.1) mmol/L Chloride 108 H (98-107) mmol/L Carbon Dioxide 17 L (22-30) mmol/L BUN (9-20) mg/dL Creatinine (0.66-1.25) mg/dL Glucose (74-99) mg/dL POC Glucose (mg/dL) 183 H (70-110) mg/dL Plasma Lactic Acid Bull (0.7-2.0) mmol/L Calcium (8.4-10.2) mg/dL 02/20/23 02/20/23 02/20/23 Range/Units 00:37 03:39 03:39 WBC (3.8-10.6) k/uL RBC 2.44 L (4.30-5.90) m/uL Hgb 7.6 L (13.0-17.5) gm/dL Hct 22.8 L (39.0-53.0) % Plt Count 135 L (150-450) k/uL Neutrophils # (1.3-7.7) k/uL Lymphocytes # 0.5 L (1.0-4.8) k/uL Monocytes # (0-1.0) k/uL ABG pH (7.35-7.45) ABG pCO2 (35-45) mmHg ABG pO2 (83-108) mmHg ABG O2 Saturation (94-97) % Potassium 5.9 H (3.5-5.1) mmol/L Chloride 109 H (98-107) mmol/L Carbon Dioxide (22-30) mmol/L BUN 39 H (9-20) mg/dL Creatinine 2.07 H (0.66-1.25) mg/dL Glucose 141 H (74-99) mg/dL POC Glucose (mg/dL) 187 H (70-110) mg/dL Plasma Lactic Acid Bull (0.7-2.0) mmol/L Calcium 7.5 L (8.4-10.2) mg/dL 02/20/23 02/20/23 02/20/23 Range/Units 03:39 05:38 06:03 WBC (3.8-10.6) k/uL RBC (4.30-5.90) m/uL Hgb (13.0-17.5) gm/dL Hct (39.0-53.0) % Plt Count (150-450) k/uL Neutrophils # (1.3-7.7) k/uL Lymphocytes # (1.0-4.8) k/uL Monocytes # (0-1.0) k/uL ABG pH (7.35-7.45) ABG pCO2 (35-45) mmHg ABG pO2 (83-108) mmHg ABG O2 Saturation (94-97) % Potassium (3.5-5.1) mmol/L Chloride (98-107) mmol/L Carbon Dioxide (22-30) mmol/L BUN (9-20) mg/dL Creatinine (0.66-1.25) mg/dL Glucose (74-99) mg/dL POC Glucose (mg/dL) 131 H 179 H (70-110) mg/dL Plasma Lactic Acid Bull 2.2 H* (0.7-2.0) mmol/L Calcium (8.4-10.2) mg/dL 02/20/23 02/20/23 Range/Units 07:29 11:06 WBC (3.8-10.6) k/uL RBC (4.30-5.90) m/uL Hgb (13.0-17.5) gm/dL Hct (39.0-53.0) % Plt Count (150-450) k/uL Neutrophils # (1.3-7.7) k/uL Lymphocytes # (1.0-4.8) k/uL Monocytes # (0-1.0) k/uL ABG pH (7.35-7.45) ABG pCO2 (35-45) mmHg ABG pO2 (83-108) mmHg ABG O2 Saturation (94-97) % Potassium (3.5-5.1) mmol/L Chloride (98-107) mmol/L Carbon Dioxide (22-30) mmol/L BUN (9-20) mg/dL Creatinine (0.66-1.25) mg/dL Glucose (74-99) mg/dL POC Glucose (mg/dL) 140 H (70-110) mg/dL Plasma Lactic Acid Bull 4.0 H* (0.7-2.0) mmol/L Calcium (8.4-10.2) mg/dL Assessment and Plan Assessment: Patient's lactic acid level is elevated and his hemoglobin level is low, consistent with blood loss anemia. His overall condition is stable. (1) Gross hematuria Current Visit: Yes Status: Acute Code(s): R31.0 - GROSS HEMATURIA SNOMED Code(s): 798232694 (2) Urinary retention Current Visit: Yes Status: Acute Code(s): R33.9 - RETENTION OF URINE, UNSPECIFIED SNOMED Code(s): 212332768 (3) Prostate nodule Current Visit: Yes Status: Acute Code(s): N40.2 - NODULAR PROSTATE WITHOUT LOWER URINARY TRACT SYMPTOMS SNOMED Code(s): 294330188378759 Plan: - Maintain continuous bladder irrigation to prevent clot formation. - Monitor labs. - Await pathology result.
[2023-02-20 12:53] LABS: Glucose,Whole Blood 151 mg/dL (70-110)
--- NOTE | 2023-02-20 13:09 | PN ---
PROGRESS NOTE DATE OF SERVICE: 02/20/2023 SUBJECTIVE: This is a 77-year-old gentleman who was admitted with hematuria, was found to have bladder tumor. The patient underwent cystoscopy, evacuation of clot, exploratory laparotomy, repair of bladder rupture, excision of bladder tumor by Dr. Mcgovern. Postoperatively, the patient had some change in mental status, patient monitored in ICU at this time. The patient also has some gastric thickening. Surgery is also following the patient closely. The patient is mildly confused. PAST MEDICAL HISTORY: Reviewed. REVIEW OF SYSTEMS: A 14-point review is negative except as mentioned earlier. CURRENT MEDICATIONS: Reviewed include cefazolin, dose and rest of medications reviewed. PHYSICAL EXAMINATION: VITAL SIGNS: Pulse is 95, blood pressure 160/83. HEENT: Conjunctivae normal. NECK: No jugular venous distention. CARDIOVASCULAR: S1, S2 muffled. RESPIRATIONS: Diminished at the bases, few scattered rhonchi. ABDOMEN: Soft status post surgery. LEGS: No edema, no swelling. NERVOUS SYSTEM: No focal deficit. LABORATORY DATA: Reviewed. ASSESSMENT: 1. Hematuria with bladder mass, status post cystoscopy, evacuation of the clot, exploratory laparotomy, repair of bladder rupture, excision of bladder tumor. 2. Vomiting, possible hypertrophic gastritis. 3. Elevated WBC, possibly reactive, rule out sepsis. 4. Acute renal failure possibly postobstructive. 5. History of diabetes mellitus type 2. 6. Hypertension. 7. Hyperlipidemia. 8. CAD stent. 9. Multiple medical issues. RECOMMENDATIONS AND DISCUSSION: I recommend to continue current management, continue symptomatic treatment. Closely follow. Otherwise, I would obtain cultures and also will obtain a consultation with Infectious Disease. Otherwise, prognosis guarded because of multiple complex medical issues, further recommendations to follow. See orders for details. MMODL / IJN: [id number] /
[2023-02-20] MEDS: HYDROmorphone 0.5 MG/0.5 ML SYRINGE IVP PRN ×2 (14:02→19:49)
--- NOTE | 2023-02-20 14:06 | CONS ---
CONSULTATION HISTORY OF PRESENT ILLNESS: This is a 77-year-old gentleman with a history of hypertension, type 2 diabetes, hyperlipidemia, and history of CAD with multivessel PCI. He used to see me on a regular basis for nearly 1 year, he has not followed up in the office. He came in yesterday to the emergency room with blood in his urine and had difficulty urination and he has pain in the suprapubic area. He was taken to the operating room by Dr. Mcgovern, who performed cystoscopy, evacuation of clots, explorative laparotomy, repair of the bladder rupture, and excision of the bladder tumor. Postprocedure, he became agitated, confused, had high lactic acid levels. I was asked to see him because of history of CAD. The patient does not have any chest pain. His EKG revealed sinus mechanism with right bundle left axis, IVCD, but no acute changes. He is resting comfortably, hemodynamically stable. From a cardiac standpoint, no new suggestions. PAST MEDICAL HISTORY: 1. CAD with multivessel PCI, stable, no angina recently, last seen about a year ago. 2. Hypertension. 3. Hyperlipidemia. 4. Type-2 diabetes mellitus. MEDICATIONS AT HOME: Include; 1. Atorvastatin 40 mg daily. 2. Atenolol 50 mg in morning, 25 in the evening. 3. Plavix 75 mg daily. 4. Flomax. 5. Hydralazine. PHYSICAL EXAMINATION: VITAL SIGNS: Blood pressure is 130/70, pulse rate is 80, irregular. HEENT: Unremarkable. Fundus was not examined by me. NECK: Supple. There is no JVD. No carotid bruit. HEART: S1 and S2 heard normally. Short systolic murmur at left sternal border. LUNGS: Reveal bilateral air entry. ABDOMEN: Soft. Rest of physical exam was not performed. Grossly, the patient has no neurological deficits. IMPRESSION: 1. Stable CAD. 2. Recent hematuria with bladder rupture repair and excision of bladder tumor. 3. Hypertension. 4. Hyperlipidemia. 5. Type 2 diabetes mellitus. RECOMMENDATIONS: From a cardiac standpoint, no new suggestions. I would recommend an echocardiogram to assess LV function and if it is okay with Dr. Mcgovern to resume aspirin 81 mg daily. Discussed my thoughts in detail with the patient and . Thank you very much for the consult. MMODL / IJN: [id number] /
[2023-02-20 14:37] LABS: Appearance,Urine Cloudy (Clear); Color,Urine Yellow; Glucose,Urine (UA) Negative (Negative); Ketones,Urine Negative (Negative); Protein,Urine 2+ (Negative)
[2023-02-20 14:38] LABS: Bilirubin,Urine Negative (Negative); Blood,Urine Large (Negative)
[2023-02-20 14:41] LABS: Urobilinogen,Urine <0.2 mg/dL (<2.0)
[2023-02-20 14:42] LABS: Leukocyte Esterase,Urine Large (Negative); Nitrite,Urine Negative (Negative)
[2023-02-20 14:49] LABS: Bacteria,Urine Rare /hpf; Mucus,Urine Rare /hpf; RBC,Urine >182 /hpf (0-5); Squamous Epithelial Cell,Urine 1 /hpf (0-4); WBC,Urine >182 /hpf (0-5)
[2023-02-20] MEDS: CEFEPIME 2 GM in SODIUM CHLORIDE 0.9% 100 ML IVPB SCH (16:06)
[2023-02-20] MEDS: hydrALAZINE HCL 50 MG TAB PO SCH (16:06)
[2023-02-20 16:09] LABS: Glucose,Whole Blood 158 mg/dL (70-110)
[2023-02-20] MEDS: hydrALAZINE HCL 20 MG/ML 1 ML VIAL IVP PRN (17:22)
--- NOTE | 2023-02-20 17:27 | CA ---
Transthoracic Echo Report Name: Lai Braga Age: 77 Gender: M : 1945 Exam Date: 02/20/2023 13:12 Exam Location: [facility] Ht (in): 70 Wt (lb): 198 Ordering Physician: Tariq Dejesus MD ([id number]) Attending/Referring Phys: Corporate Scheduler Megha Posadas RDCS Procedure CPT: Indications: per dr. dejesus Cardiac Hx: Technical Quality: Fair Contrast 1: Total Dose (mL): Contrast 2: Total Dose (mL): MEASUREMENTS (Male / Female) Normal Values 2D ECHO LV Diastolic Diameter PLAX 5.0 cm 4.2 - 5.9 / 3.9 - 5.3 cm LV Systolic Diameter PLAX 3.0 cm IVS Diastolic Thickness 1.5 cm 0.6 - 1.0 / 0.6 - 0.9 cm LVPW Diastolic Thickness 1.6 cm 0.6 - 1.0 / 0.6 - 0.9 cm LV Relative Wall Thickness 0.6 RV Internal Dim ED PLAX 3.2 cm LVOT Diameter 2.7 cm LA Systolic Diameter LX 3.6 cm 3.0 - 4.0 / 2.7 - 3.8 cm LV Diastolic Volume MOD 4C 113.7 cm??? LV Systolic Volume MOD 4C 63.1 cm??? LV Ejection Fraction MOD 4C 44.5 % LV Cardiac Index MOD 4C 2262.5 cm???/min???m??? LV Diastolic Length 4C 9.3 cm LV Systolic Length 4C 7.7 cm LV Diastolic Volume MOD 2C 90.0 cm??? LV Systolic Volume MOD 2C 53.2 cm??? LV Ejection Fraction MOD 2C 40.9 % LV Cardiac Index MOD 2C 1644.9 cm???/min???m??? LV Diastolic Length 2C 9.2 cm LV Systolic Length 2C 8.6 cm LA Volume 48.5 cm??? 18 - 58 / 22 - 52 cm??? M-MODE Aortic Root Diameter MM 3.4 cm MV E Point Septal Separation 2.2 cm AV Cusp Separation MM 1.9 cm DOPPLER AV Peak Velocity 199.1 cm/s AV Peak Gradient 15.9 mmHg AV Mean Velocity 134.6 cm/s AV Mean Gradient 8.6 mmHg AV Velocity Time Integral 35.4 cm LVOT Peak Velocity 142.2 cm/s LVOT Peak Gradient 8.1 mmHg AV Area Cont Eq pk 4.0 cm??? MV Area PHT 4.7 cm??? Mitral E Point Velocity 71.3 cm/s Mitral A Point Velocity 111.6 cm/s Mitral E to A Ratio 0.6 MV Deceleration Time 163.1 ms FINDINGS Left Ventricle Left ventricular ejection fraction is estimated at 55-60 %. Left ventricular cavity size normal. Moderate concentric left ventricular hypertrophy. Normal left ventricular wall motion. Right Ventricle Normal right ventricular size. Unable to estimate the right ventricular systolic pressure. Right Atrium Normal right atrial size. Left Atrium Normal left atrial size. Mitral Valve Mild mitral annular calcification. Mild mitral regurgitation. Aortic Valve Focal thickening of the aortic valve cusps. Mild aortic stenosis with a peak gradient of 16 mmHg and a mean gradient of 9 mmHg. Can not r/o vegetation Tricuspid Valve Structurally normal tricuspid valve. No tricuspid stenosis, or prolapse.mild tricuspid regurgitation. Pulmonic Valve Pulmonic valve not well visualized. Pericardium Normal pericardium. No pericardial effusion. Aorta Normal size aortic root and proximal ascending aorta. CONCLUSIONS Technically difficult study. 1. Normal left ventricle size and systolic function 2. Mild mitral and tricuspid regurgitation 3. Mild aortic stenosis. 4. Thickening of the aortic valve leaflet is noted, cannot exclude a vegetation. If clinically indicated a NINOSKA would be helpful. Previewed by: Dr. Lorin Balderas MD (Electronically Signed) Final Date: 20 February 2023 17:26
[2023-02-20 20:59] LABS: Glucose,Whole Blood 195 mg/dL (70-110)
--- NOTE | 2023-02-20 22:07 | P.CONS ---
History of Present Illness - Reason for Consult Consult date: 02/20/23 - History of Present Illness Patient is a 77-year-old male presenting to the hospital 2 days ago for evaluation of lower abdominal pain that started the night before he presented to the hospital the patient also complaining of blood in his urine patient describes the pain to be mostly sharp almost lateral in severity no radiation associated nausea but no vomiting patient on presentation to the hospital was afebrile however the patient did spike a fever of 101.8 degrees following right this afternoon patient was mildly tachycardic but not hypotensive mildly hypoxic requiring supplemental oxygen patient did have white count 13.2 with a left shift patient did have a CT abdominal pelvis large heterogeneous appearing urinary bladder with minimal contrast present on delayed images minimal fluid may be present within the dependent urinary bladder adjacent contrast polypoid mass along the anterior lateral left urinary bladder is not excluded patient was evaluated by urology he was taken to the OR last night the patient is status post cystoscopy evacuation of the clot followed by exploratory laparotomy and repair of the bladder rupture excision of the bladder tumor patient has been started on cefazolin postoperatively with a new fever infectious disease was consulted today for further management of her by therapy concerning for sepsis Past Medical History Past Medical History: Coronary Artery Disease (CAD), Chest Pain / Angina, Diabetes Mellitus, GERD/Reflux, Hyperlipidemia, Hypertension, Myocardial Infarction ([place]), Prostate Disorder Last Myocardial Infarction Date:: 01/13/14 History of Any Multi-Drug Resistant Organisms: None Reported Past Surgical History: Heart Catheterization With Stent Additional Past Surgical History / Comment(s): X4. STENTS Past Anesthesia/Blood Transfusion Reactions: No Reported Reaction Date of Last Stent Placement:: 2013 Past Psychological History: No Psychological Hx Reported Smoking Status: Former smoker Past Alcohol Use History: None Reported Past Drug Use History: None Reported - Past Family History Brother(s) Family Medical History: Myocardial Infarction ([place]) Additional Family Medical History / Comment(s): CABG Medications and Allergies Home Medications Medication Instructions Recorded Confirmed Type Ergocalciferol [Vitamin D2 50,000 unit PO Q14D 01/13/14 02/18/23 History (DRISDOL)] Finasteride 5 mg PO DAILY 01/13/14 02/18/23 History Tamsulosin [Flomax] 0.4 mg PO HS 01/13/14 02/18/23 History atenoloL 50 mg PO DAILY 01/13/14 02/18/23 History atenoloL [Tenormin] 25 mg PO HS 01/13/14 02/18/23 History metFORMIN HCL 500 mg PO BID-W/MEALS 04/25/16 02/18/23 History Clopidogrel [Plavix] 75 mg PO DAILY tab 04/28/16 02/18/23 Rx Nitroglycerin Sl Tabs [Nitrostat] 0.4 mg SUBLINGUAL Q5M PRN #25 tab 04/28/16 02/18/23 Rx Amitriptyline HCl [Elavil] 10 mg PO HS 02/18/23 02/18/23 History Atorvastatin [Lipitor] 40 mg PO HS 02/18/23 02/18/23 History Cetirizine HCl [Zyrtec] 10 mg PO DAILY 02/18/23 02/18/23 History Fluticasone Nasal [place] [Flonase 1 spray EA NOSTRIL BID 02/18/23 02/18/23 History Nasal [place]] Gabapentin 300 mg PO DAILY 02/18/23 02/18/23 History Losartan Potassium 100 mg PO DAILY 02/18/23 02/18/23 History Pantoprazole [Protonix] 40 mg PO DAILY 02/18/23 02/18/23 History hydrALAZINE HCL [Apresoline] 25 mg PO BID-W/MEALS 02/18/23 02/18/23 History Allergies Allergy/AdvReac Type Severity Reaction Status Date / Time No Known Allergies Allergy Verified 02/18/23 21:45 Physical Exam Vitals: Vital Signs Temp Pulse Pulse Pulse Resp BP BP 02/20/23 12:00 101.8 F H 95 163/83 02/20/23 11:30 97 162/81 02/20/23 11:00 92 137/99 02/20/23 10:30 85 129/68 02/20/23 10:00 75 125/67 02/20/23 09:30 76 123/63 02/20/23 09:00 76 123/61 02/20/23 08:30 76 113/60 02/20/23 08:00 98.3 F 71 20 116/65 02/20/23 07:33 02/20/23 07:30 75 115/64 02/20/23 07:00 74 18 115/67 02/20/23 06:30 80 16 163/78 02/20/23 06:00 93 18 132/71 02/20/23 05:30 72 18 128/72 02/20/23 05:00 70 20 125/68 02/20/23 04:30 72 18 116/64 02/20/23 04:00 97.7 F 69 16 120/63 02/20/23 03:56 20 02/20/23 03:49 02/20/23 03:30 71 20 111/64 02/20/23 03:00 73 110/62 02/20/23 02:45 74 151/79 02/20/23 02:30 80 130/67 02/20/23 02:15 72 123/65 02/20/23 02:00 98.2 F 74 122/70 02/20/23 01:50 73 122/70 02/20/23 01:40 76 131/72 02/20/23 01:30 81 119/65 02/20/23 01:20 80 119/65 02/20/23 01:10 81 161/90 02/20/23 01:00 90 16 131/72 02/20/23 00:50 93 177/79 02/20/23 00:40 101 H 161/85 02/20/23 00:31 02/20/23 00:30 100 20 167/98 02/20/23 00:20 29 H 167/98 02/20/23 00:17 100 27 H 02/19/23 23:45 84 18 02/19/23 23:19 92 18 02/19/23 23:04 85 18 02/19/23 22:49 82 16 02/19/23 22:34 83 16 02/19/23 22:19 82 18 02/19/23 22:04 85 18 02/19/23 21:49 93 18 02/19/23 21:34 96.8 F L 81 20 02/19/23 17:23 70 16 02/19/23 17:19 68 16 02/19/23 16:50 98 F 67 16 02/19/23 14:12 98.2 F 78 188/109 BP Pulse Ox FiO2 02/20/23 12:00 89 L 02/20/23 11:30 89 L 02/20/23 11:00 97 02/20/23 10:30 93 L 02/20/23 10:00 98 02/20/23 09:30 98 02/20/23 09:00 97 02/20/23 08:30 98 02/20/23 08:00 98 40 02/20/23 07:33 30 02/20/23 07:30 99 02/20/23 07:00 98 02/20/23 06:30 99 02/20/23 06:00 97 02/20/23 05:30 99 02/20/23 05:00 100 02/20/23 04:30 99 02/20/23 04:00 99 02/20/23 03:56 02/20/23 03:49 30 02/20/23 03:30 98 02/20/23 03:00 97 02/20/23 02:45 97 02/20/23 02:30 97 02/20/23 02:15 99 02/20/23 02:00 98 02/20/23 01:50 99 02/20/23 01:40 96 02/20/23 01:30 97 02/20/23 01:20 98 02/20/23 01:10 98 02/20/23 01:00 95 02/20/23 00:50 98 02/20/23 00:40 100 30 02/20/23 00:31 40 02/20/23 00:30 99 02/20/23 00:20 97 02/20/23 00:17 97 02/19/23 23:45 166/92 97 02/19/23 23:19 165/70 98 02/19/23 23:04 142/70 98 02/19/23 22:49 130/69 99 02/19/23 22:34 122/68 98 02/19/23 22:19 140/85 97 02/19/23 22:04 160/88 99 02/19/23 21:49 162/90 97 02/19/23 21:34 148/88 95 02/19/23 17:23 164/88 97 02/19/23 17:19 148/108 98 02/19/23 16:50 169/87 94 L 02/19/23 14:12 96 Intake and Output 02/19/23 02/20/23 02/20/23 22:59 06:59 14:59 Intake Total 0 754.081 737.491 Output Total 1050 0 755 Balance 1000 -1335.919 -17.509 Intake: IV 2049 200 Intake, IV Titration 554.081 737.491 Amount Calcium Gluconate in NaCl 100 1 gm In Saline 1 100ml. bag @ 100 mls/hr IVPB ONCE ONE Rx#:[id number] Dexmedetomidine/0.9% NaCl 4.081 62.491 (Pmx) 400 mcg In Empty Bag 1 bag @ 0.2 MCG/KG/HR 3.856 mls/hr IV .Q24H [facility] Rx#:[id number] Sodium Chloride 0.9% 1, 450 375 000 ml @ 75 mls/hr IV . [id number] [facility] Rx#:[id number] Sodium Chloride 0.9% 50 100 ml @ 0 mls/hr IV .STK-MED ONE with ceFAZolin 2,000 mg Rx#:[id number] ceFAZolin 1,000 mg In 200 Sodium Chloride 0.9% 50 ml @ 100 mls/hr IVPB Q8H [facility] Rx#:[id number] Output: Drainage 40 Lower Abdomen 40 Urine 1000 2049 755 Estimated Blood Loss 50 Other: Voiding Method Indwelling Catheter Indwelling Catheter Indwelling Catheter Weight 77.111 kg 90 kg Results CBC & Chem 7: 02/20/23 03:39 02/20/23 15:42 Labs: Abnormal Lab Results - Last 24 Hours (Table) 02/19/23 02/19/23 02/19/23 Range/Units 15:10 22:50 22:50 WBC 24.3 H (3.8-10.6) k/uL RBC 2.69 L (4.30-5.90) m/uL Hgb 8.4 L (13.0-17.5) gm/dL Hct 26.2 L (39.0-53.0) % Plt Count (150-450) k/uL Neutrophils # 20.0 H (1.3-7.7) k/uL Lymphocytes # (1.0-4.8) k/uL Monocytes # 1.1 H (0-1.0) k/uL ABG pH (7.35-7.45) ABG pCO2 (35-45) mmHg ABG pO2 (83-108) mmHg ABG O2 Saturation (94-97) % Potassium (3.5-5.1) mmol/L Chloride (98-107) mmol/L Carbon Dioxide (22-30) mmol/L BUN (9-20) mg/dL Creatinine (0.66-1.25) mg/dL Glucose (74-99) mg/dL POC Glucose (mg/dL) (70-110) mg/dL Plasma Lactic Acid Bull 2.4 H* 8.1 H* (0.7-2.0) mmol/L Calcium (8.4-10.2) mg/dL 02/19/23 02/19/23 02/20/23 Range/Units 22:51 23:37 00:04 WBC (3.8-10.6) k/uL RBC (4.30-5.90) m/uL Hgb (13.0-17.5) gm/dL Hct (39.0-53.0) % Plt Count (150-450) k/uL Neutrophils # (1.3-7.7) k/uL Lymphocytes # (1.0-4.8) k/uL Monocytes # (0-1.0) k/uL ABG pH 7.25 L (7.35-7.45) ABG pCO2 47 H (35-45) mmHg ABG pO2 113 H (83-108) mmHg ABG O2 Saturation 97.1 H (94-97) % Potassium (3.5-5.1) mmol/L Chloride 108 H (98-107) mmol/L Carbon Dioxide 17 L (22-30) mmol/L BUN (9-20) mg/dL Creatinine (0.66-1.25) mg/dL Glucose (74-99) mg/dL POC Glucose (mg/dL) 183 H (70-110) mg/dL Plasma Lactic Acid Bull (0.7-2.0) mmol/L Calcium (8.4-10.2) mg/dL 02/20/23 02/20/23 02/20/23 Range/Units 00:37 03:39 03:39 WBC (3.8-10.6) k/uL RBC 2.44 L (4.30-5.90) m/uL Hgb 7.6 L (13.0-17.5) gm/dL Hct 22.8 L (39.0-53.0) % Plt Count 135 L (150-450) k/uL Neutrophils # (1.3-7.7) k/uL Lymphocytes # 0.5 L (1.0-4.8) k/uL Monocytes # (0-1.0) k/uL ABG pH (7.35-7.45) ABG pCO2 (35-45) mmHg ABG pO2 (83-108) mmHg ABG O2 Saturation (94-97) % Potassium 5.9 H (3.5-5.1) mmol/L Chloride 109 H (98-107) mmol/L Carbon Dioxide (22-30) mmol/L BUN 39 H (9-20) mg/dL Creatinine 2.07 H (0.66-1.25) mg/dL Glucose 141 H (74-99) mg/dL POC Glucose (mg/dL) 187 H (70-110) mg/dL Plasma Lactic Acid Bull (0.7-2.0) mmol/L Calcium 7.5 L (8.4-10.2) mg/dL 02/20/23 02/20/23 02/20/23 Range/Units 03:39 05:38 06:03 WBC (3.8-10.6) k/uL RBC (4.30-5.90) m/uL Hgb (13.0-17.5) gm/dL Hct (39.0-53.0) % Plt Count (150-450) k/uL Neutrophils # (1.3-7.7) k/uL Lymphocytes # (1.0-4.8) k/uL Monocytes # (0-1.0) k/uL ABG pH (7.35-7.45) ABG pCO2 (35-45) mmHg ABG pO2 (83-108) mmHg ABG O2 Saturation (94-97) % Potassium (3.5-5.1) mmol/L Chloride (98-107) mmol/L Carbon Dioxide (22-30) mmol/L BUN (9-20) mg/dL Creatinine (0.66-1.25) mg/dL Glucose (74-99) mg/dL POC Glucose (mg/dL) 131 H 179 H (70-110) mg/dL Plasma Lactic Acid Bull 2.2 H* (0.7-2.0) mmol/L Calcium (8.4-10.2) mg/dL 02/20/23 02/20/23 02/20/23 Range/Units 07:29 11:06 12:52 WBC (3.8-10.6) k/uL RBC (4.30-5.90) m/uL Hgb (13.0-17.5) gm/dL Hct (39.0-53.0) % Plt Count (150-450) k/uL Neutrophils # (1.3-7.7) k/uL Lymphocytes # (1.0-4.8) k/uL Monocytes # (0-1.0) k/uL ABG pH (7.35-7.45) ABG pCO2 (35-45) mmHg ABG pO2 (83-108) mmHg ABG O2 Saturation (94-97) % Potassium (3.5-5.1) mmol/L Chloride (98-107) mmol/L Carbon Dioxide (22-30) mmol/L BUN (9-20) mg/dL Creatinine (0.66-1.25) mg/dL Glucose (74-99) mg/dL POC Glucose (mg/dL) 140 H 151 H (70-110) mg/dL Plasma Lactic Acid Bull 4.0 H* (0.7-2.0) mmol/L Calcium (8.4-10.2) mg/dL Assessment and Plan Plan: 1patient with sepsis in this patient was in the hospital abdominal pain patient has been diagnosed with a ruptured bladder status post arthrotomy and operative repair patient with a fever elevated white count tachycardia source likely urinary and will need to cover for the enteric gram-negative to be the likely pathogen 2-we will obtain a UA culture as well as blood culture and a CRP 3-discontinue cefazolin 4-start the patient cefepime 2 g every 8 hours while waiting for the culture to finalize We will follow on clinical condition and cultures to further adjust medication if needed Thank you for this consultation we will follow the patient along with you Dictation was produced using [employer] software. please excuse any grammatical, word or spelling errors. Time with Patient: Greater than 30
[2023-02-21] MEDS: HYDROmorphone 1 MG/ML 1 ML SYRINGE IVP PRN (00:52)
[2023-02-21] MEDS: SODIUM CHLORIDE 0.9% IRRIGATIO 3,000 ML IRRIGATION SCH ×2 (00:53→20:09)
[2023-02-21] MEDS: DEXMEDETOMIDINE/0.9% NACL(PMX) 400 MCG in EMPTY BAG 1 BAG IV SCH (03:03)
[2023-02-21] MEDS: CEFEPIME 2 GM in SODIUM CHLORIDE 0.9% 100 ML IVPB SCH ×2 (04:10→16:59)
[2023-02-21] MEDS: SODIUM CHLORIDE 0.9% 1,000 ML IV SCH ×2 (04:25→17:57)
[2023-02-21 04:29] LABS: Basophils % (A) 0 %; Eosinophils # (A) 0.1 k/uL (0-0.7); Eosinophils % (A) 1 %; Lymphocytes # (A) 1.4 k/uL (1.0-4.8); Lymphocytes % (A) 22 %; MCH 31.2 pg (25.0-35.0); MCHC 33.2 g/dL (31.0-37.0); MCV 94.1 fL (80.0-100.0); Mean Platelet Volume 8.3; Monocytes # (A) 0.5 k/uL (0-1.0); Monocytes % (A) 8 %; Neutrophils % (A) 67 %; Platelet Count 143 k/uL (150-450); RBC 2.55 m/uL (4.30-5.90); RDW 14.2 % (11.5-15.5); WBC 6.1 k/uL (3.8-10.6)
[2023-02-21 04:41] LABS: African American GFR (CKD) 51 (>60 ml/min/1.73 sqM); Anion Gap 6 mmol/L; Blood Urea Nitrogen 34 mg/dL (9-20); Calcium 7.7 mg/dL (8.4-10.2); Carbon Dioxide 25 mmol/L (22-30); Chloride 108 mmol/L (98-107); Glucose 136 mg/dL (74-99); Non-African American GFR(CKD) 44 (>60 ml/min/1.73 sqM); Potassium 4.6 mmol/L (3.5-5.1); Sodium 139 mmol/L (137-145)
[2023-02-21 06:33] LABS: Glucose,Whole Blood 153 mg/dL (70-110)
[2023-02-21] MEDS: HYDROmorphone 0.5 MG/0.5 ML SYRINGE IVP PRN (06:41)
[2023-02-21] MEDS: hydrALAZINE HCL 50 MG TAB PO SCH ×2 (07:56→17:00)
[2023-02-21] MEDS: hydrALAZINE HCL 20 MG/ML 1 ML VIAL IVP PRN ×2 (08:00→19:00)
[2023-02-21] MEDS ORDERED: PROPOFOL 10 MG/ML 20 ML VIAL IV ONE (09:21)
[2023-02-21] MEDS ORDERED: LIDOCAINE 2% INJ 20 MG/ML (2 ML VIAL) ONE (09:21)
--- NOTE | 2023-02-21 09:37 | P.OP ---
Date of Procedure: 02/21/23 Preoperative Diagnosis: Gastritis Postoperative Diagnosis: Mild antral gastritis No evidence of ischemic stomach Procedure(s) Performed: EGD Anesthesia: MAC Surgeon: Sandeep Bermudez Pathology: other (Antrum) Condition: stable Disposition: PACU Description of Procedure: The patient's placed on the endoscopy table in the lateral position. He received IV sedation. The gastroscope placed oropharynx passed in the esophagus into the stomach. Scope was then placed through the pylorus. The first and second portion duodenum appeared normal. Scope was then brought back the antrum. The gastric mucosa appeared to be slightly thickened however there was no evidence of ischemia. A random biopsy the antrum was performed. The scope was then retroflexed and the patient had hypertrophic gastric folds. However there was no ischemia stomach. The GE junction was at 40 cm. The distal esophagus appeared normal. Proximal esophagus. Scope withdrawn for patient.
[2023-02-21] MEDS: NICOTINE 14MG/24HR PATCH TRANSDERM SCH (10:25)
[2023-02-21] MEDS: PANTOPRAZOLE 40 MG/10 ML VIAL IVP SCH ×2 (10:25→22:47)
[2023-02-21] MEDS: FLUTICASONE 50MCG/SPRAY NASAL 16GM EA NOSTRIL SCH ×2 (10:29→22:48)
[2023-02-21 10:31] LABS: Glucose,Whole Blood 147 mg/dL (70-110)
[2023-02-21] MEDS: GABAPENTIN 300 MG CAP PO SCH (10:34)
[2023-02-21] MEDS: LORATADINE 10 MG TAB PO SCH (10:34)
[2023-02-21] MEDS: metFORMIN 500 MG TAB PO SCH ×2 (10:34→17:00)
[2023-02-21] MEDS: atenoloL 50 MG TAB PO SCH ×2 (10:35→22:47)
[2023-02-21] MEDS: FINASTERIDE 5 MG TAB PO SCH (10:35)
--- NOTE | 2023-02-21 10:44 | P.PN ---
Subjective Progress Note Date: 02/21/23 This is a 77-year-old male patient with a known history of benign prostatic hyperplasia, hypertension, hyperlipidemia, coronary artery disease with previous stent placements, diabetes mellitus, gastroesophageal reflux disease. He presented here to the emergency room on 02/18/2023 with complaints of difficulty in urination and blood in his urine. He was having suprapubic pain and difficulty making any urine. Ultrasound of the bladder revealed a mass or debris-filled urinary bladder. Bilateral renal cyst. Computed tomography scan of the abdomen and pelvis revealed a large heterogenous-appearing urinary bladder with minimal contrast present on delayed images. Urinary bladder appears to be filled with debris. Polypoid mass along the anterior lateral left urinary bladder was not excluded. On 02/19/2023 had undergone a cystoscopy with evacuation of clots, exploratory laparotomy, open excision of bladder tumor and repair of bladder laceration. A suprapubic catheter was placed. Late last n ight and early this morning the patient developed confusion and agitation. He was having rhonchorous respirations as well. He was subsequently transferred to the intensive care unit and placed on BiPAP 10/5 on 30% FiO2. His restlessness and confusion required Precedex infusion currently at 0.4 mcg/kg per hour. Chest x-ray reveals chronic changes without evidence for acute pulmonary disease. He is more calm and cooperative. He will be transitioned to nasal cannula. Continuous bladder irrigation is present. Heme no hematuria noted in urine output. He has normal saline at 75 ML's per hour. Antibiotics in the form of cefazolin. White count 8.8. Hemoglobin 7.6. Platelets 135. Arterial blood gases on 40% FiO2 had revealed a PaO2 of 113, pCO2 47, pH 7.25. Sodium 141. Potassium 5.9. Bicarb 27. BUN 39. Creatinine 2.07. Glucose 141. Lactic acid 4.0. The patient is seen today 02/21/2023 in follow-up in the intensive care unit. He is currently sitting up in bed. Awake and alert in no acute distress. He is having episodes of confusion. He has been off the Precedex. [employer] consultant at the bedside. Currently on 2 L/m per nasal cannula. He continues with continuous bladder irrigation. No significant clot noted. White count 6.1. Hemoglobin 8.0. Platelets 143. Sodium 139. Potassium 4.6. Bicarb 25. BUN 34. Creatinine 1.52. Glucose 136. He has normal saline at 75 ML's per hour. Echocardiogram revealed preserved left ventricular systolic function with ejecti on fraction 55-60%. There is some thickening of the aortic valve leaflet vegetation cannot be excluded. He remains on cefepime. NicoDerm patch in place. He did undergo EGD today which revealed mild antral gastritis. No evidence of ischemic stomach. Objective - Vital Signs Vital signs: Vital Signs Temp 99.0 F 02/21/23 08:00 Pulse 81 02/21/23 09:00 Resp 15 02/21/23 09:00 BP 164/98 02/21/23 09:00 Pulse Ox 93 L 02/21/23 09:00 FiO2 40 02/20/23 08:00 Intake & Output 02/20/23 02/21/23 02/21/23 18:59 06:59 18:59 Intake Total 1437.491 925 85 Output Total 1390 2180 350 Balance 47.924 -2412 -618 Weight 89 kg Intake: IV 100 10 0.9 10 Cefepime 2 gm In Sodium 100 Chloride 0.9% 100 ml @ 25 mls/hr IVPB Q12H [facility] Rx# :[id number] Intake, IV Titration 1437.491 825 75 Amount Calcium Gluconate in NaCl 100 1 gm In Saline 1 100ml. bag @ 100 mls/hr IVPB ONCE ONE Rx#:[id number] Cefepime 2 gm In Sodium 100 Chloride 0.9% 100 ml @ 25 mls/hr IVPB Q12H [facility] Rx# :[id number] Dexmedetomidine/0.9% NaCl 62.491 (Pmx) 400 mcg In Empty Bag 1 bag @ 0.2 MCG/KG/HR 3.856 mls/hr IV .Q24H [facility] Rx#:[id number] Sodium Chloride 0.9% 1, 975 825 75 000 ml @ 75 mls/hr IV . [id number] [facility] Rx#:[id number] ceFAZolin 1,000 mg In 200 Sodium Chloride 0.9% 50 ml @ 100 mls/hr IVPB Q8H [facility] Rx#:[id number] Output: Drainage 20 Lower Abdomen 20 Urine 1390 2160 350 Other: Voiding Method Indwelling Catheter Indwelling Catheter Indwelling Catheter - Exam GENERAL EXAM: Awake, alert, confused at times, 77-year-old male, on 2 L/m per nasal cannula, comfortable in no apparent distress. HEAD: Normocephalic. EYES: Normal reaction of pupils, equal size. NOSE: Clear with pink turbinates. THROAT: No erythema or exudates. NECK: No masses, no JVD. CHEST: No chest wall deformity. LUNGS: Equal air entry with no crackles, wheeze, rhonchi or dullness. CVS: S1 and S2 normal with no audible murmur, regular rhythm. ABDOMEN: Suprapubic catheter in place. CBI. No hepatosplenomegaly, normal bowel sounds, no guarding or rigidity. SPINE: No scoliosis or deformity SKIN: No rashes CENTRAL NERVOUS SYSTEM: No focal deficits, tone is normal in all 4 extremities. EXTREMITIES: There is no peripheral edema. No clubbing, no cyanosis. Peripheral pulses are intact. - Labs CBC & Chem 7: 02/21/23 03:30 02/21/23 03:30 Labs: Abnormal Lab Results - Last 24 Hours (Table) 02/20/23 02/20/23 02/20/23 Range/Units 02:28 11:06 12:52 RBC (4.30-5.90) m/uL Hgb (13.0-17.5) gm/dL Hct (39.0-53.0) % Plt Count (150-450) k/uL Chloride (98-107) mmol/L BUN (9-20) mg/dL Creatinine (0.66-1.25) mg/dL Glucose (74-99) mg/dL POC Glucose (mg/dL) 140 H 151 H (70-110) mg/dL Calcium (8.4-10.2) mg/dL C-Reactive Protein 7.8 H (<1.0) mg/dL Urine Protein (Negative) Urine RBC (0-5) /hpf Urine WBC (0-5) /hpf Urine Bacteria (None) /hpf Urine Mucus (None) /hpf 02/20/23 02/20/23 02/20/23 Range/Units 14:10 16:07 20:57 RBC (4.30-5.90) m/uL Hgb (13.0-17.5) gm/dL Hct (39.0-53.0) % Plt Count (150-450) k/uL Chloride (98-107) mmol/L BUN (9-20) mg/dL Creatinine (0.66-1.25) mg/dL Glucose (74-99) mg/dL POC Glucose (mg/dL) 158 H 195 H (70-110) mg/dL Calcium (8.4-10.2) mg/dL C-Reactive Protein (<1.0) mg/dL Urine Protein 2+ H (Negative) Urine RBC >182 H (0-5) /hpf Urine WBC >182 H (0-5) /hpf Urine Bacteria Rare H (None) /hpf Urine Mucus Rare H (None) /hpf 02/21/23 02/21/23 02/21/23 Range/Units 03:30 03:30 06:32 RBC 2.55 L (4.30-5.90) m/uL Hgb 8.0 L (13.0-17.5) gm/dL Hct 24.0 L (39.0-53.0) % Plt Count 143 L (150-450) k/uL Chloride 108 H (98-107) mmol/L BUN 34 H (9-20) mg/dL Creatinine 1.52 H (0.66-1.25) mg/dL Glucose 136 H (74-99) mg/dL POC Glucose (mg/dL) 153 H (70-110) mg/dL Calcium 7.7 L (8.4-10.2) mg/dL C-Reactive Protein (<1.0) mg/dL Urine Protein (Negative) Urine RBC (0-5) /hpf Urine WBC (0-5) /hpf Urine Bacteria (None) /hpf Urine Mucus (None) /hpf 02/21/23 Range/Units 10:30 RBC (4.30-5.90) m/uL Hgb (13.0-17.5) gm/dL Hct (39.0-53.0) % Plt Count (150-450) k/uL Chloride (98-107) mmol/L BUN (9-20) mg/dL Creatinine (0.66-1.25) mg/dL Glucose (74-99) mg/dL POC Glucose (mg/dL) 147 H (70-110) mg/dL Calcium (8.4-10.2) mg/dL C-Reactive Protein (<1.0) mg/dL Urine Protein (Negative) Urine RBC (0-5) /hpf Urine WBC (0-5) /hpf Urine Bacteria (None) /hpf Urine Mucus (None) /hpf Assessment and Plan Assessment: Hematuria and urinary retention secondary to a large heterogenous-appearing urinary bladder filled with debris. Polypoid mass on the anterior left lateral urinary bladder not excluded. Status post cystoscopy and evacuation of clots, exploratory laparotomy, open excision of bladder tumor area. Bladder lacer ation. Postoperative day #2. Suprapubic catheter in place. Continuous bladder irrigation present Anemia secondary to above, current hemoglobin 8.0 Acute renal failure, creatinine 1.52 Altered mental status with agitation and confusion in the postoperative recovery department, and improved Acute hypoxemic respiratory failure requiring BiPAP support him a improved and on 2 L Coronary artery disease with previous stent placements History of benign prostatic hyperplasia Hypertension Hyperlipidemia Diabetes mellitus History of chronic tobacco dependence Plan: The patient was seen and evaluated Echocardiogram, EGD, labs and medications reviewed No active upper GI bleeding or stomach ischemia Improved and off Precedex Transitioned to nasal cannula Could transferred to the regular medical floor We will continue to follow I have personally seen and examined the patient, performed the documentation and the assessment and plan as written. Number of minutes spent on the visit: 10.
--- NOTE | 2023-02-21 10:53 | P.PN ---
Subjective Progress Note Date: 02/21/23 SUBJECTIVE: She was seen and examined at bedside the same. Patient is status post laparotomy, status post open excision of bladder tumor, postoperative day 2. LABS: Hemoglobin 8, creatinine 1.5 ASSESSMENT: Prior history of CAD status post PCI Essential hypertension Dyslipidemia Diabetes Postop day 2 status post exploratory laparotomy and open bladder tumor resection. Metabolic encephalopathy, getting better LISA PLAN: Discontinue Plavix. Start aspirin when appropriate by surgery team. I anticipate it to be started tomorrow Continue hydralazine 100 mg twice a day next and continue atenolol 50 minutes twice a day Ordering losartan due to LISA Echocardiogram shows thickened aortic valve. In setting of bladder mass, we will obtain the blood cultures. If blood cultures are negative, we will rule out possibility of infective endocarditis. Objective - Vital Signs Vital signs: Vital Signs Temp 99.0 F 02/21/23 08:00 Pulse 81 02/21/23 09:00 Resp 15 02/21/23 09:00 BP 164/98 02/21/23 09:00 Pulse Ox 93 L 02/21/23 09:00 FiO2 40 02/20/23 08:00 Intake & Output 02/20/23 02/21/23 02/21/23 18:59 06:59 18:59 Intake Total 1437.491 925 85 Output Total 1390 2180 350 Balance 47.491 1255 -265 Weight 89 kg Intake: IV 100 10 0.9 10 Cefepime 2 gm In Sodium 100 Chloride 0.9% 100 ml @ 25 mls/hr IVPB Q12H [facility] Rx# :[id number] Intake, IV Titration 1437.491 825 75 Amount Calcium Gluconate in NaCl 100 1 gm In Saline 1 100ml. bag @ 100 mls/hr IVPB ONCE ONE Rx#:[id number] Cefepime 2 gm In Sodium 100 Chloride 0.9% 100 ml @ 25 mls/hr IVPB Q12H [facility] Rx# :[id number] Dexmedetomidine/0.9% NaCl 62.491 (Pmx) 400 mcg In Empty Bag 1 bag @ 0.2 MCG/KG/HR 3.856 mls/hr IV .Q24H [facility] Rx#:[id number] Sodium Chloride 0.9% 1, 975 825 75 000 ml @ 75 mls/hr IV . [id number] [facility] Rx#:[id number] ceFAZolin 1,000 mg In 200 Sodium Chloride 0.9% 50 ml @ 100 mls/hr IVPB Q8H [facility] Rx#:[id number] Output: Drainage 20 Lower Abdomen 20 Urine 1390 2160 350 Other: Voiding Method Indwelling Catheter Indwelling Catheter Indwelling Catheter - Labs CBC & Chem 7: 02/21/23 03:30 02/21/23 03:30 Labs: Abnormal Lab Results - Last 24 Hours (Table) 02/20/23 02/20/23 02/20/23 Range/Units 02:28 11:06 12:52 RBC (4.30-5.90) m/uL Hgb (13.0-17.5) gm/dL Hct (39.0-53.0) % Plt Count (150-450) k/uL Chloride (98-107) mmol/L BUN (9-20) mg/dL Creatinine (0.66-1.25) mg/dL Glucose (74-99) mg/dL POC Glucose (mg/dL) 140 H 151 H (70-110) mg/dL Calcium (8.4-10.2) mg/dL C-Reactive Protein 7.8 H (<1.0) mg/dL Urine Protein (Negative) Urine RBC (0-5) /hpf Urine WBC (0-5) /hpf Urine Bacteria (None) /hpf Urine Mucus (None) /hpf 02/20/23 02/20/23 02/20/23 Range/Units 14:10 16:07 20:57 RBC (4.30-5.90) m/uL Hgb (13.0-17.5) gm/dL Hct (39.0-53.0) % Plt Count (150-450) k/uL Chloride (98-107) mmol/L BUN (9-20) mg/dL Creatinine (0.66-1.25) mg/dL Glucose (74-99) mg/dL POC Glucose (mg/dL) 158 H 195 H (70-110) mg/dL Calcium (8.4-10.2) mg/dL C-Reactive Protein (<1.0) mg/dL Urine Protein 2+ H (Negative) Urine RBC >182 H (0-5) /hpf Urine WBC >182 H (0-5) /hpf Urine Bacteria Rare H (None) /hpf Urine Mucus Rare H (None) /hpf 02/21/23 02/21/23 02/21/23 Range/Units 03:30 03:30 06:32 RBC 2.55 L (4.30-5.90) m/uL Hgb 8.0 L (13.0-17.5) gm/dL Hct 24.0 L (39.0-53.0) % Plt Count 143 L (150-450) k/uL Chloride 108 H (98-107) mmol/L BUN 34 H (9-20) mg/dL Creatinine 1.52 H (0.66-1.25) mg/dL Glucose 136 H (74-99) mg/dL POC Glucose (mg/dL) 153 H (70-110) mg/dL Calcium 7.7 L (8.4-10.2) mg/dL C-Reactive Protein (<1.0) mg/dL Urine Protein (Negative) Urine RBC (0-5) /hpf Urine WBC (0-5) /hpf Urine Bacteria (None) /hpf Urine Mucus (None) /hpf 02/21/23 Range/Units 10:30 RBC (4.30-5.90) m/uL Hgb (13.0-17.5) gm/dL Hct (39.0-53.0) % Plt Count (150-450) k/uL Chloride (98-107) mmol/L BUN (9-20) mg/dL Creatinine (0.66-1.25) mg/dL Glucose (74-99) mg/dL POC Glucose (mg/dL) 147 H (70-110) mg/dL Calcium (8.4-10.2) mg/dL C-Reactive Protein (<1.0) mg/dL Urine Protein (Negative) Urine RBC (0-5) /hpf Urine WBC (0-5) /hpf Urine Bacteria (None) /hpf Urine Mucus (None) /hpf
[2023-02-21 11:37] LABS: Glucose,Whole Blood 151 mg/dL (70-110)
--- NOTE | 2023-02-21 14:12 | PN ---
PROGRESS NOTE DATE OF SERVICE: 02/21/2023 SUBJECTIVE: This 23 is proximal this 77-year-old gentleman who was admitted with hematuria, bladder mass and cystoscopy. Bladder perforation was also noted. The patient is on broad- spectrum IV antibiotics a to the patient. The patient is confused, monitored in ICU. A 2D echo with Doppler showed normal LV thickened aortic valve as noted. Vegetation cannot be ruled out. Infectious disease has seen the patient. The patient is on cefepime I am cultures are negative so far on exam past medical reviewed. REVIEW OF SYSTEMS: Could not be taken because of confusion. CURRENT MEDICATIONS: Include cefepime and repair. PHYSICAL EXAMINATION: VITAL SIGNS: Pulse is 85, blood pressure 91/87, respirations 25 HEENT: Conjunctivae normal. RESPIRATIONS. ABDOMEN: Soft nervous stomach. LABORATORY DATA: Hemoglobin 8, other labs are noted. ASSESSMENT: 1. Hematuria and bladder mass, status post cystoscopy, evacuation include exploratory laparotomy, repair of bladder rupture, and excision of bladder tumor. 2. Vomiting possible hyper trophic gastritis. 3. Elevated WBC, reactive possible sepsis. 4. Acute renal failure possibly postobstructive. 5. Diabetes mellitus, type 2. 6. Hypertension, hyperlipidemia. 7. History of CAD stent. 8. Change in mental status, metabolic encephalopathy. 9. Multiple medical issues. RECOMMENDATIONS AND DISCUSSION: I recommend to continue current medications. Continue symptomatic treatment. Otherwise, repeat labs. I would also recommend CT of the brain to RO the possible acute stroke. Otherwise, empiric antibiotics and endoscopy recess and 2D echo appreciated. Further recommendations to follow. MMODL / IJN: [id number] /
--- NOTE | 2023-02-21 14:25 | P.PN ---
Subjective Progress Note Date: 02/21/23 Principal diagnosis: POD #2, s/p evacuation of clot and repair of bladder rupture The patient underwent exploratory laparotomy with repair of bladder rupture. A bladder tumor was excised. His only complaint is incisional discomfort with coughing. Objective - Vital Signs Vital signs: Vital Signs Temp 99.0 F 02/21/23 08:00 Pulse 81 02/21/23 09:00 Resp 15 02/21/23 09:00 BP 164/98 02/21/23 09:00 Pulse Ox 93 L 02/21/23 09:00 FiO2 40 02/20/23 08:00 Intake & Output 02/20/23 02/21/23 02/21/23 18:59 06:59 18:59 Intake Total 1437.491 925 85 Output Total 1390 2180 350 Balance 88.867 -8764 -889 Weight 89 kg Intake: IV 100 10 0.9 10 Cefepime 2 gm In Sodium 100 Chloride 0.9% 100 ml @ 25 mls/hr IVPB Q12H [facility] Rx# :[id number] Intake, IV Titration 1437.491 825 75 Amount Calcium Gluconate in NaCl 100 1 gm In Saline 1 100ml. bag @ 100 mls/hr IVPB ONCE ONE Rx#:[id number] Cefepime 2 gm In Sodium 100 Chloride 0.9% 100 ml @ 25 mls/hr IVPB Q12H [facility] Rx# :[id number] Dexmedetomidine/0.9% NaCl 62.491 (Pmx) 400 mcg In Empty Bag 1 bag @ 0.2 MCG/KG/HR 3.856 mls/hr IV .Q24H [facility] Rx#:[id number] Sodium Chloride 0.9% 1, 975 825 75 000 ml @ 75 mls/hr IV . [id number] [facility] Rx#:[id number] ceFAZolin 1,000 mg In 200 Sodium Chloride 0.9% 50 ml @ 100 mls/hr IVPB Q8H [facility] Rx#:[id number] Output: Drainage 20 Lower Abdomen 20 Urine 1390 2160 350 Other: Voiding Method Indwelling Catheter Indwelling Catheter Indwelling Catheter - Constitutional General appearance: Present: average body habitus, cooperative, no acute distress - Gastrointestinal Gastrointestinal Comment(s): Soft, non-distended. Incision clean, dry, and intact. Minimal CHELSEA output. Continuous bladder irrigation is running slowly with clear outflow. - Labs CBC & Chem 7: 02/21/23 03:30 02/21/23 03:30 Labs: Abnormal Lab Results - Last 24 Hours (Table) 02/20/23 02/20/23 02/20/23 Range/Units 02:28 11:06 12:52 RBC (4.30-5.90) m/uL Hgb (13.0-17.5) gm/dL Hct (39.0-53.0) % Plt Count (150-450) k/uL Chloride (98-107) mmol/L BUN (9-20) mg/dL Creatinine (0.66-1.25) mg/dL Glucose (74-99) mg/dL POC Glucose (mg/dL) 140 H 151 H (70-110) mg/dL Calcium (8.4-10.2) mg/dL C-Reactive Protein 7.8 H (<1.0) mg/dL Urine Protein (Negative) Urine RBC (0-5) /hpf Urine WBC (0-5) /hpf Urine Bacteria (None) /hpf Urine Mucus (None) /hpf 02/20/23 02/20/23 02/20/23 Range/Units 14:10 16:07 20:57 RBC (4.30-5.90) m/uL Hgb (13.0-17.5) gm/dL Hct (39.0-53.0) % Plt Count (150-450) k/uL Chloride (98-107) mmol/L BUN (9-20) mg/dL Creatinine (0.66-1.25) mg/dL Glucose (74-99) mg/dL POC Glucose (mg/dL) 158 H 195 H (70-110) mg/dL Calcium (8.4-10.2) mg/dL C-Reactive Protein (<1.0) mg/dL Urine Protein 2+ H (Negative) Urine RBC >182 H (0-5) /hpf Urine WBC >182 H (0-5) /hpf Urine Bacteria Rare H (None) /hpf Urine Mucus Rare H (None) /hpf 02/21/23 02/21/23 02/21/23 Range/Units 03:30 03:30 06:32 RBC 2.55 L (4.30-5.90) m/uL Hgb 8.0 L (13.0-17.5) gm/dL Hct 24.0 L (39.0-53.0) % Plt Count 143 L (150-450) k/uL Chloride 108 H (98-107) mmol/L BUN 34 H (9-20) mg/dL Creatinine 1.52 H (0.66-1.25) mg/dL Glucose 136 H (74-99) mg/dL POC Glucose (mg/dL) 153 H (70-110) mg/dL Calcium 7.7 L (8.4-10.2) mg/dL C-Reactive Protein (<1.0) mg/dL Urine Protein (Negative) Urine RBC (0-5) /hpf Urine WBC (0-5) /hpf Urine Bacteria (None) /hpf Urine Mucus (None) /hpf // Range/Units 10:30 RBC (4.30-5.90) m/uL Hgb (13.0-17.5) gm/dL Hct (39.0-53.0) % Plt Count (150-450) k/uL Chloride (98-107) mmol/L BUN (9-20) mg/dL Creatinine (0.66-1.25) mg/dL Glucose (74-99) mg/dL POC Glucose (mg/dL) 147 H (70-110) mg/dL Calcium (8.4-10.2) mg/dL C-Reactive Protein (<1.0) mg/dL Urine Protein (Negative) Urine RBC (0-5) /hpf Urine WBC (0-5) /hpf Urine Bacteria (None) /hpf Urine Mucus (None) /hpf Assessment and Plan Assessment: Patient's condition is improved. Stable POD #2. (1) Gross hematuria Current Visit: Yes Status: Acute Code(s): R31.0 - GROSS HEMATURIA SNOMED Code(s): 502684010 (2) Urinary retention Current Visit: Yes Status: Acute Code(s): R33.9 - RETENTION OF URINE, UNSPECIFIED SNOMED Code(s): 167165348 (3) Prostate nodule Current Visit: Yes Status: Acute Code(s): N40.2 - NODULAR PROSTATE WITHOUT LOWER URINARY TRACT SYMPTOMS SNOMED Code(s): 550601296699431 Plan: - Hold continuous bladder irrigation, resume prn to prevent clot formation. - Pulmonary toilet. - Await pathology result.
--- NOTE | 2023-02-21 14:27 | CT ---
EXAMINATION TYPE: CT brain wo con CT DLP: 1231.4 mGycm, Automated exposure control for dose reduction was used. DATE OF EXAM: 02/21/2023 2:18 PM COMPARISON: CT brain 04/18/2021 CLINICAL INDICATION:Male, 77 years old with history of change in mentation stroke??, mental status ch kendrick TECHNIQUE: Brain: Multiple axial CT images of the brain were obtained without IV contrast. Coronal and sagittal reformats reviewed. FINDINGS: Brain: Extra-axial spaces: No abnormal extra-axial fluid collections. Ventricular system: Within normal limits Cerebral parenchyma: Cerebral atrophy. No acute intraparenchymal hemorrhage or mass effect. The ozuna -white junction is well differentiated. Scattered hypoattenuating areas are seen within the white mat ter. Cerebellum: Unremarkable. Mass effect: No evidence of midline shift. Intracranial vasculature: Atherosclerotic calcifications of the intracranial vessels. Soft tissues: Normal. Calvarium/osseous structures: No depressed skull fracture. Paranasal sinuses and mastoid air cells: The mastoid air cells are clear. Mild mucosal thickening in the right maxillary sinus. Visualized orbits: Orbital contents are intact. IMPRESSION: 1. No acute intracranial process. 2. Nonspecific white matter changes, likely secondary to chronic small vessel ischemic disease.
--- NOTE | 2023-02-21 16:39 | P.NPCON ---
History of Present Illness - Reason for Consult Consult date: 02/21/23 acute renal failure - Chief Complaint Hematuria - History of Present Illness 77-year-old white female coming to the hospital with hematuria. He also has suprapubic pain associated with it. Baseline creatinine 0.9 MG per DL. On admission creatinine around 1.4-1.5 MG per DL. Workup including ultrasound showed bladder mass or debris, further workup including computed tomography scan showed bladder debris with a polypoid mass. Nephrology was consulted, patient underwent cystoscopy and clot was removed. She notes 100 bladder rupture underwent laparotomy with repair of the bladder rupture and tumor was removed. Creatinine was 2.1 yesterday, back to 1.5 today. On CBI and urine clear. Review of Systems Constitutional: Reports as per HPI Past Medical History Past Medical History: Coronary Artery Disease (CAD), Chest Pain / Angina, Diabetes Mellitus, GERD/Reflux, Hyperlipidemia, Hypertension, Myocardial In farction (AL), Prostate Disorder Last Myocardial Infarction Date:: 01/13/14 History of Any Multi-Drug Resistant Organisms: None Reported Past Surgical History: Heart Catheterization With Stent Additional Past Surgical History / Comment(s): X4. STENTS Past Anesthesia/Blood Transfusion Reactions: No Reported Reaction Date of Last Stent Placement:: 2013 Past Psychological History: No Psychological Hx Reported Smoking Status: Former smoker Past Alcohol Use History: None Reported Past Drug Use History: None Reported - Past Family History Brother(s) Family Medical History: Myocardial Infarction (AL) Additional Family Medical History / Comment(s): CABG Medications and Allergies Home Medications Medication Instructions Recorded Confirmed Type Ergocalciferol [Vitamin D2 50,000 unit PO Q14D 01/13/14 02/18/23 History (DRISDOL)] Finasteride 5 mg PO DAILY 01/13/14 02/18/23 History Tamsulosin [Flomax] 0.4 mg PO HS 01/13/14 02/18/23 History atenoloL 50 mg PO DAILY 01/13/14 02/18/23 History atenoloL [Tenormin] 25 mg PO HS 01/13/14 02/18/23 History metFORMIN HCL 500 mg PO BID-W/MEALS 04/25/16 02/18/23 History Clopidogrel [Plavix] 75 mg PO DAILY tab 04/28/16 02/18/23 Rx Nitroglycerin Sl Tabs [Nitrostat] 0.4 mg SUBLINGUAL Q5M PRN #25 tab 04/28/16 02/18/23 Rx Amitriptyline HCl [Elavil] 10 mg PO HS 02/18/23 02/18/23 History Atorvastatin [Lipitor] 40 mg PO HS 02/18/23 02/18/23 History Cetirizine HCl [Zyrtec] 10 mg PO DAILY 02/18/23 02/18/23 History Fluticasone Nasal Vona [Flonase 1 spray EA NOSTRIL BID 02/18/23 02/18/23 History Nasal Vona] Gabapentin 300 mg PO DAILY 02/18/23 02/18/23 History Losartan Potassium 100 mg PO DAILY 02/18/23 02/18/23 History Pantoprazole [Protonix] 40 mg PO DAILY 02/18/23 02/18/23 History hydrALAZINE HCL [Apresoline] 25 mg PO BID-W/MEALS 02/18/23 02/18/23 History Allergies Allergy/AdvReac Type Severity Reaction Status Date / Time No Known Allergies Allergy Verified 02/18/23 21:45 Physical Exam Vitals: Vital Signs Temp Pulse Pulse Pulse Pulse Resp BP 02/21/23 13:53 98.6 F 89 17 02/21/23 12:57 98.8 F 87 17 02/21/23 09:00 81 15 164/98 02/21/23 08:30 85 12 203/102 02/21/23 08:00 99.0 F 85 24 191/87 02/21/23 07:36 02/21/23 07:30 78 15 175/86 02/21/23 07:00 79 16 189/96 02/21/23 06:30 87 18 199/96 02/21/23 06:00 78 17 168/101 02/21/23 05:30 79 19 142/99 02/21/23 05:00 79 23 152/79 02/21/23 04:30 77 20 175/75 02/21/23 04:00 82 84 9 L 156/115 02/21/23 03:30 81 18 158/91 02/21/23 03:00 75 14 160/77 02/21/23 02:30 79 23 126/72 02/21/23 02:00 73 15 123/59 07/29/23 01:30 75 16 117/59 07/29/23 01:00 82 20 153/77 02/21/23 00:30 83 35 H 149/95 02/21/23 00:00 99.0 F 84 84 24 123/70 02/20/23 23:30 82 16 136/72 02/20/23 23:00 86 11 L 144/83 02/20/23 22:30 85 14 148/68 02/20/23 22:00 86 12 147/74 02/20/23 21:30 91 20 159/64 02/20/23 21:00 98.6 F 91 16 172/73 02/20/23 20:30 92 20 153/82 02/20/23 20:00 101.5 F H 97 16 172/105 02/20/23 19:30 95 24 145/133 02/20/23 19:00 100 11 L 131/96 02/20/23 18:30 98 20 161/133 02/20/23 18:00 100 15 145/95 02/20/23 17:30 91 26 H 175/94 02/20/23 17:00 87 21 181/102 BP Pulse Ox 02/21/23 13:53 94 L 02/21/23 12:57 179/80 95 02/21/23 09:00 93 L 02/21/23 08:30 93 L 02/21/23 08:00 95 02/21/23 07:36 95 02/21/23 07:30 93 L 02/21/23 07:00 95 02/21/23 06:30 95 02/21/23 06:00 96 02/21/23 05:30 94 L 02/21/23 05:00 96 02/21/23 04:30 95 02/21/23 04:00 94 L 02/21/23 03:30 95 02/21/23 03:00 95 02/21/23 02:30 02/21/23 02:00 94 L 02/21/23 01:30 94 L 02/21/23 01:00 100 02/21/23 00:30 02/21/23 00:00 02/20/23 23:30 99 02/20/23 23:00 96 02/20/23 22:30 96 02/20/23 22:00 94 L 02/20/23 21:30 93 L 02/20/23 21:00 94 L 02/20/23 20:30 93 L 02/20/23 20:00 95 02/20/23 19:30 94 L 02/20/23 19:00 95 02/20/23 18:30 95 02/20/23 18:00 95 02/20/23 17:30 95 02/20/23 17:00 96 Intake and Output 02/21/23 02/21/23 02/21/23 06:59 14:59 22:59 Intake Total 700 85 Output Total 1385 350 Balance -830 -799 Intake: IV 100 10 0.9 10 Cefepime 2 gm In Sodium 100 Chloride 0.9% 100 ml @ 25 mls/hr IVPB Q12H [facility] Rx# :[id number] Intake, IV Titration 600 75 Amount Sodium Chloride 0.9% 1, 600 75 000 ml @ 75 mls/hr IV . [id number] [facility] Rx#:[id number] Output: Drainage 20 Lower Abdomen 20 Urine 1365 350 Other: Voiding Method Indwelling Catheter Indwelling Catheter Weight 89 kg No acute distress S1-S2 heard Lungs clear No edema Bella urine Results - Lab Results Most recent lab results ABG pH 7.25 (7.35-7.45) L 02/20/23 00:04 ABG pCO2 47 mmHg (35-45) H 02/20/23 00:04 ABG pO2 113 mmHg (83-108) H 02/20/23 00:04 ABG HCO3 21 mmol/L (21-25) 02/20/23 00:04 ABG O2 Saturation 97.1 % (94-97) H 02/20/23 00:04 Calcium 7.7 mg/dL (8.4-10.2) L 02/21/23 03:30 02/21/23 03:30 02/21/23 03:30 Assessment and Plan Assessment: #1 acute kidney injury secondary to artifact oriole ATN. -Baseline creatinine 0.9 MG per DL. #2 bladder hematoma with rupture status post repair. #3 hematuria secondary to bladder pathology #4 hypertension #5 anemia secondary to acute blood loss. Plan: #1 renal function stable. #2 avoid nephrotoxic agents and hypotensive episodes. #3 urology following
[2023-02-21 20:25] LABS: Glucose,Whole Blood 220 mg/dL (70-110)
[2023-02-21] MEDS: TAMSULOSIN 0.4 MG CAP.ER.24H PO SCH (22:47)
[2023-02-21] MEDS: ATORVASTATIN 40 MG TAB PO SCH (22:47)
[2023-02-22] MEDS: AMITRIPTYLINE HCL 10 MG TAB PO SCH ×2 (00:36→12:25)
[2023-02-22 05:53] LABS: Glucose,Whole Blood 172 mg/dL (70-110)
[2023-02-22] MEDS: SODIUM CHLORIDE 0.9% 1,000 ML IV SCH ×2 (06:31→22:22)
[2023-02-22] MEDS: hydrALAZINE HCL 50 MG TAB PO SCH ×2 (06:31→16:27)
[2023-02-22] MEDS: metFORMIN 500 MG TAB PO SCH ×2 (06:31→16:27)
[2023-02-22] MEDS: CEFEPIME 2 GM in SODIUM CHLORIDE 0.9% 100 ML IVPB SCH ×2 (06:31→16:21)
[2023-02-22] MEDS ORDERED: QUEtiapine 25 MG TAB PO STA (08:32)
[2023-02-22 09:40] LABS: ALT 14 U/L (10-49); AST 39 U/L (14-35); Albumin 2.9 d/dL (3.8-4.9); Albumin/Globulin Ratio 1.61 Ratio (1.60-3.17); Alkaline Phosphatase 52 U/L (41-126); BUN/Creat Ratio 21.92 Ratio (12.00-20.00); Blood Urea Nitrogen 26.3 mg/dL (9.0-27.0); Calcium 7.8 mg/dL (8.7-10.3); Chloride 111 mmol/L (96-109); Globulin 1.8 d/dL (1.6-3.3); Glucose 162 mg/dL (70-110); Sodium 142 mmol/L (135-145); Total Bilirubin 0.6 mg/dL (0.3-1.2); Total Protein 4.7 d/dL (6.2-8.2)
--- NOTE | 2023-02-22 10:40 | P.PN ---
Progress Note - Text Progress Note Date: 02/22/23 Patient feels well today. He has no complete abdominal pain. He is tolerating diet. On exam vital signs appear stable. Abdomen soft nontender Resolved quite gastritis. Patient will have his diet advanced.
[2023-02-22 10:50] LABS: Basophils # (A) 0.02 X 10*3/uL (0.00-0.10); Basophils % (A) 0.3 %; Eosinophils # (A) 0.09 X 10*3/uL (0.04-0.35); Eosinophils % (A) 1.4 %; HCT 20.6 % (39.6-50.0); HGB 6.4 d/dL (13.0-17.0); Lymphocytes # (A) 0.91 X 10*3/uL (0.90-5.00); Lymphocytes % (A) 13.8 %; MCH 29.9 pg (27.0-32.0); MCHC 31.1 d/dL (32.0-37.0); MCV 96.3 FL (80.0-97.0); Mean Platelet Volume 10.2 FL (9.5-12.2); Monocytes # (A) 0.53 X 10*3/uL (0.20-1.00); NRBC Per 100 WBC 0 X 10*3/uL (0.00-0.01); Neutrophils # (A) 4.97 X 10*3/uL (1.80-7.70); Neutrophils % (A) 75.4 %; Platelet Count 137 X 10*3/uL (140-440); RBC 2.14 X 10*6/uL (4.40-5.60); RBC Morphology Normal (Normal); WBC 6.59 X 10*3/uL (4.50-10.00)
--- NOTE | 2023-02-22 10:58 | P.PN ---
Subjective Progress Note Date: 02/22/23 Principal diagnosis: POD #3, s/p evacuation of clot and repair of bladder rupture The patient underwent exploratory laparotomy with repair of bladder rupture. A bladder tumor was excised. He has been combative this morning with the nursing staff, but voices no complaints. Specifically, he denies nausea, vomiting, chest pain, and dyspnea. He is tolerating diet but refuses to take oral medications. Objective - Vital Signs Vital signs: Vital Signs Temp 98.0 F 02/22/23 06:55 Pulse 72 02/22/23 06:55 Resp 16 02/22/23 06:55 BP 142/64 02/22/23 06:55 Pulse Ox 96 02/22/23 06:55 FiO2 40 02/20/23 08:00 Intake & Output 02/21/23 02/22/23 02/22/23 18:59 06:59 18:59 Intake Total 85 Output Total 1650 600 Balance -1565 -600 Intake: IV 10 0.9 10 Intake, IV Titration 75 Amount Sodium Chloride 0.9% 1, 75 000 ml @ 75 mls/hr IV . [id number] [facility] Rx#:[id number] Output: Urine 1650 600 Other: Voiding Method Indwelling Catheter Indwelling Catheter - Constitutional General appearance: Present: average body habitus, no acute distress. Absent: cooperative - Gastrointestinal Gastrointestinal Comment(s): Soft, non-distended. Incision clean, dry, and intact. Minimal CHELSEA drain output. The Bella catheter is plugged. The suprapubic cystostomy tube is draining clear yellow urine. - Labs CBC & Chem 7: 02/22/23 05:28 02/22/23 05:28 Labs: Abnormal Lab Results - Last 24 Hours (Table) 02/21/23 02/21/23 02/22/23 Range/Units 11:36 20:24 05:28 RBC (4.40-5.60) X 10*6/uL Hgb (13.0-17.0) d/dL Hct (39.6-50.0) % MCHC (32.0-37.0) d/dL Plt Count (140-440) X 10*3/uL Chloride 111 H (96-109) mmol/L BUN/Creatinine Ratio 21.92 H (12.00-20.00) Ratio Glucose 162 H (70-110) mg/dL POC Glucose (mg/dL) 151 H 220 H (70-110) mg/dL Calcium 7.8 L (8.7-10.3) mg/dL AST 39 H (14-35) U/L Total Protein 4.7 L (6.2-8.2) d/dL Albumin 2.9 L (3.8-4.9) d/dL 02/22/23 02/22/23 Range/Units 05:28 05:49 RBC 2.14 L (4.40-5.60) X 10*6/uL Hgb 6.4 H* (13.0-17.0) d/dL Hct 20.6 L (39.6-50.0) % MCHC 31.1 L (32.0-37.0) d/dL Plt Count 137 L (140-440) X 10*3/uL Chloride (96-109) mmol/L BUN/Creatinine Ratio (12.00-20.00) Ratio Glucose (70-110) mg/dL POC Glucose (mg/dL) 172 H (70-110) mg/dL Calcium (8.7-10.3) mg/dL AST (14-35) U/L Total Protein (6.2-8.2) d/dL Albumin (3.8-4.9) d/dL Microbiology - Last 24 Hours (Table) 02/20/23 13:32 Blood Culture - Preliminary Blood 02/20/23 14:10 Urine Culture - Final Urine,Voided Assessment and Plan Assessment: Patient's condition is improved. Stable POD #3. (1) Gross hematuria Current Visit: Yes Status: Acute Code(s): R31.0 - GROSS HEMATURIA SNOMED Code(s): 940852918 (2) Urinary retention Current Visit: Yes Status: Acute Code(s): R33.9 - RETENTION OF URINE, UNSPECIFIED SNOMED Code(s): 420727370 (3) Prostate nodule Current Visit: Yes Status: Acute Code(s): N40.2 - NODULAR PROSTATE WITHOUT LOWER URINARY TRACT SYMPTOMS SNOMED Code(s): 212663123117754 Plan: The patient is urologically stable for discharge. The CHELSEA drain will be removed prior to discharge. The Bella catheter will remain plugged, and the suprapubic tube will remain connected to gravity drainage. He will follow up with me in the upcoming week for surgical staple removal and review of his pathology report. The Bella catheter will remain in place 1 additional week.
[2023-02-22 11:34] LABS: Glucose,Whole Blood 185 mg/dL (70-110)
--- NOTE | 2023-02-22 11:54 | P.PN ---
Subjective Progress Note Date: 02/22/23 Principal diagnosis: Mental status changes. This is a 77-year-old male patient with a known history of benign prostatic hyperplasia, hypertension, hyperlipidemia, coronary artery disease with previous stent placements, diabetes mellitus, gastroesophageal reflux disease. He pres ented here to the emergency room on 02/18/2023 with complaints of difficulty in urination and blood in his urine. He was having suprapubic pain and difficulty making any urine. Ultrasound of the bladder revealed a mass or debris-filled urinary bladder. Bilateral renal cyst. Computed tomography scan of the abdomen and pelvis revealed a large heterogenous-appearing urinary bladder with minimal contrast present on delayed images. Urinary bladder appears to be filled with debris. Polypoid mass along the anterior lateral left urinary bladder was not excluded. On 02/19/2023 had undergone a cystoscopy with evacuation of clots, exploratory laparotomy, open excision of bladder tumor and repair of bladder laceration. A suprapubic catheter was placed. Late last night and early this morning the patient developed confusion and agitation. He was having rhonchorous respirations as well. He was subsequently transferred to the intensive care unit and placed on BiPAP 10/ on 30% FiO2. His restlessness and confusion required Precedex infusion currently at 0.4 mcg/kg per hour. Chest x- ray reveals chronic changes without evidence for acute pulmonary disease. He is more calm and cooperative. He will be transitioned to nasal cannula. Continuous bladder irrigation is present. Heme no hematuria noted in urine output. He has normal saline at 75 ML's per hour. Antibiotics in the form of cefazolin. White count 8.8. Hemoglobin 7.6. Platelets 135. Arterial blood gases on 40% FiO2 had revealed a PaO2 of 113, pCO2 47, pH 7.25. Sodium 141. Potassium 5.9. Bicarb 27. BUN 39. Creatinine 2.07. Glucose 141. Lactic acid 4.0. The patient is seen today 02/21/2023 in follow-up in the intensive care unit. He is currently sitting up in bed. Awake and alert in no acute distress. He is having episodes of confusion. He has been off the Precedex. keg raiser at the bedside. Currently on 2 L/m per nasal cannula. He continues with continuous bladder irrigation. No significant clot noted. White count 6.1. Hemoglobin 8.0. Platelets 143. Sodium 139. Potassium 4.6. Bicarb 25. BUN 34. Creatinine 1.52. Glucose 136. He has normal saline at 75 ML's per hour. Echocardiogram revealed preserved left ventricular systolic function with ejection fraction 55-60%. There is some thickening of the aortic valve leaflet vegetation cannot be excluded. He remains on cefepime. NicoDerm patch in place. He did undergo EGD today which revealed mild antral gastritis. No evidence of ischemic stomach. Progress note dated 02/22/2023. The patient is seen today on the general medical floor, room 451. The patient's currently on 2 L of oxygen. He is receiving saline at 75 mL an hour. The patient apparently has been misbehaving, and has a sitter at the bedside. Apparently he has spit at the sitter. Labs today include a white count of 6.59, hemoglobin 6.4, hematocrit 20.6, and a platelet count of 137,000. Sodium 142, potassium 4, chlorides 111, CO2 23, BUN 26, and creatinine 1.2. 2 units of packed red blood cells were ordered, but not yet given. Objective - Vital Signs Vital signs: Vital Signs Temp 98.0 F 02/22/23 06:55 Pulse 72 02/22/23 06:55 Resp 16 02/22/23 06:55 BP 142/64 02/22/23 06:55 Pulse Ox 96 02/22/23 06:55 FiO2 40 02/20/23 08:00 Intake & Output 02/21/23 02/22/23 02/22/23 18:59 06:59 18:59 Intake Total 85 Output Total 1650 600 Balance -1565 -600 Intake: IV 10 0.9 10 Intake, IV Titration 75 Amount Sodium Chloride 0.9% 1, 75 000 ml @ 75 mls/hr IV . [id number] [facility] Rx#:[id number] Output: Urine 1650 600 Other: Voiding Method Indwelling Catheter Indwelling Catheter Indwelling Catheter - Exam No acute distress, confused, currently on 2 L. HEENT examination is grossly unremarkable. Neck supple. Full range of motion. No adenopathy thyromegaly or neck vein distention. Cardiovascular examination reveals regular rhythm rate. S1-S2 normal. No S3 or S4. No discernible murmur noted. Heart rate 72 bpm. Lungs reveal mostly clear breath sounds. Scattered mild rhonchi noted. No wheezes or crackles. 2 L saturation is 97%. Abdomen soft bowel sounds are heard. No masses or tenderness. Extremities are intact. No cyanosis clubbing or edema. Skin is without rash or lesion. Neurologic examination reveals patient to be confused. - Labs CBC & Chem 7: 02/22/23 05:28 02/22/23 05:28 Labs: Abnormal Lab Results - Last 24 Hours (Table) 02/21/23 02/22/23 02/22/23 Range/Units 20:24 05:28 05:28 RBC 2.14 L (4.40-5.60) X 10*6/uL Hgb 6.4 H* (13.0-17.0) d/dL Hct 20.6 L (39.6-50.0) % MCHC 31.1 L (32.0-37.0) d/dL Plt Count 137 L (140-440) X 10*3/uL Chloride 111 H (96-109) mmol/L BUN/Creatinine Ratio 21.92 H (12.00-20.00) Ratio Glucose 162 H (70-110) mg/dL POC Glucose (mg/dL) 220 H (70-110) mg/dL Calcium 7.8 L (8.7-10.3) mg/dL AST 39 H (14-35) U/L Total Protein 4.7 L (6.2-8.2) d/dL Albumin 2.9 L (3.8-4.9) d/dL 02/22/23 02/22/23 Range/Units 05:49 11:33 RBC (4.40-5.60) X 10*6/uL Hgb (13.0-17.0) d/dL Hct (39.6-50.0) % MCHC (32.0-37.0) d/dL Plt Count (140-440) X 10*3/uL Chloride (96-109) mmol/L BUN/Creatinine Ratio (12.00-20.00) Ratio Glucose (70-110) mg/dL POC Glucose (mg/dL) 172 H 185 H (70-110) mg/dL Calcium (8.7-10.3) mg/dL AST (14-35) U/L Total Protein (6.2-8.2) d/dL Albumin (3.8-4.9) d/dL Microbiology - Last 24 Hours (Table) 02/20/23 13:32 Blood Culture - Preliminary Blood 02/20/23 14:10 Urine Culture - Final Urine,Voided Assessment and Plan Assessment: Hematuria and urinary retention secondary to a large heterogenous-appearing urinary bladder filled with debris. Polypoid mass on the anterior left lateral urinary bladder not excluded. Status post cystoscopy and evacuation of clots, exploratory laparotomy, open excision of bladder tumor area. Bladder laceration. Postoperative day #3. Suprapubic catheter in place. Continuous bladder irrigation present Anemia secondary to above. Acute renal failure. Altered mental status with agitation and confusion in the postoperative recovery department. Acute hypoxemic respiratory failure requiring BiPAP support, now on 2 L. Coronary artery disease with previous stent placements. History of benign prostatic hyperplasia. Hypertension. Hyperlipidemia. Diabetes mellitus. History of chronic tobacco dependence. Plan: Plan dated 02/22/2023. The patient will be transfused at least 1 unit of packed red blood cells, and maybe 2. Labs, x-rays, and medications are all reviewed. The patient appears to be very confused. He continues on oxygen at 2 L. He is getting saline at 75 mL an hour. Labs, x-rays, and medications are reviewed. Prognosis is guarded. Time with Patient: Less than 30
[2023-02-22] MEDS ORDERED: FUROSEMIDE 10 MG/ML 2 ML VIAL IV ONE (12:00)
[2023-02-22] MEDS: MULTIVITAMINS, THERA 1 EACH TAB PO SCH (12:25)
[2023-02-22] MEDS: atenoloL 50 MG TAB PO SCH ×2 (12:26→22:20)
[2023-02-22] MEDS: THIAMINE 100 MG TAB PO SCH (12:26)
[2023-02-22] MEDS: FOLIC ACID 1 MG TAB PO SCH (12:26)
[2023-02-22] MEDS: LORATADINE 10 MG TAB PO SCH (12:26)
[2023-02-22] MEDS: FINASTERIDE 5 MG TAB PO SCH (12:26)
[2023-02-22] MEDS: GABAPENTIN 300 MG CAP PO SCH (12:30)
[2023-02-22] MEDS: PANTOPRAZOLE 40 MG/10 ML VIAL IVP SCH ×2 (12:31→22:21)
--- NOTE | 2023-02-22 12:37 | P.PN ---
Subjective Progress Note Date: 02/21/23 Principal diagnosis: Postop fever Patient is a 77-year-old male presenting to the hospital for evaluation of lower abdominal pain that started the night before he presented to the hospital the patient also complaining of blood in his urine, patient was noticed to have ruptured bladder and the patient is status post expiratory laparotomy and repair of the bladder rupture patient did spike a fever postoperatively. On today's evaluation that is 02/21/2023, the patient did have improvement in his fever pattern and is afebrile this afternoon, the patient has been moved out of the ICU, is breathing comfortably on 2 L nasal cannula oxygen no chest pain shortness of breath or cough abdominal pain is currently controlled Patient did have white count 6.1 creatinine is 1.52, UA was positive blood and urine cultures currently pending Objective - Vital Signs Vital signs: Vital Signs Temp 99.0 F 02/21/23 08:00 Pulse 81 02/21/23 09:00 Resp 15 02/21/23 09:00 BP 164/98 02/21/23 09:00 Pulse Ox 93 L 02/21/23 09:00 FiO2 40 02/20/23 08:00 Intake & Output 02/20/23 02/21/23 02/21/23 18:59 06:59 18:59 Intake Total 1437.491 925 85 Output Total 1390 2180 350 Balance 47.491 1255 -265 Weight 89 kg Intake: IV 100 10 0.9 10 Cefepime 2 gm In Sodium 100 Chloride 0.9% 100 ml @ 25 mls/hr IVPB Q12H [facility] Rx# :[id number] Intake, IV Titration 1437.491 825 75 Amount Calcium Gluconate in NaCl 100 1 gm In Saline 1 100ml. bag @ 100 mls/hr IVPB ONCE ONE Rx#:[id number] Cefepime 2 gm In Sodium 100 Chloride 0.9% 100 ml @ 25 mls/hr IVPB Q12H [facility] Rx# :[id number] Dexmedetomidine/0.9% NaCl 62.491 (Pmx) 400 mcg In Empty Bag 1 bag @ 0.2 MCG/KG/HR 3.856 mls/hr IV .Q24H [facility] Rx#:[id number] Sodium Chloride 0.9% 1, 975 825 75 000 ml @ 75 mls/hr IV . [id number] [facility] Rx#:[id number] ceFAZolin 1,000 mg In 200 Sodium Chloride 0.9% 50 ml @ 100 mls/hr IVPB Q8H [facility] Rx#:[id number] Output: Drainage 20 Lower Abdomen 20 Urine 1390 2160 350 Other: Voiding Method Indwelling Catheter Indwelling Catheter Indwelling Catheter - Exam GENERAL DESCRIPTION: An elderly male lying in bed in no distress RESPIRATORY SYSTEM: Unlabored breathing , decreased breath sounds at bases HEART: S1 S2 regular rate and rhythm , ABDOMEN: Soft , no tenderness EXTREMITIES: No edema feet - Labs CBC & Chem 7: 02/21/23 03:30 02/21/23 03:30 Labs: Abnormal Lab Results - Last 24 Hours (Table) 02/20/23 02/20/23 02/20/23 Range/Units 02:28 12:52 14:10 RBC (4.30-5.90) m/uL Hgb (13.0-17.5) gm/dL Hct (39.0-53.0) % Plt Count (150-450) k/uL Chloride (98-107) mmol/L BUN (9-20) mg/dL Creatinine (0.66-1.25) mg/dL Glucose (74-99) mg/dL POC Glucose (mg/dL) 151 H (70-110) mg/dL Calcium (8.4-10.2) mg/dL C-Reactive Protein 7.8 H (<1.0) mg/dL Urine Protein 2+ H (Negative) Urine RBC >182 H (0-5) /hpf Urine WBC >182 H (0-5) /hpf Urine Bacteria Rare H (None) /hpf Urine Mucus Rare H (None) /hpf 02/20/23 02/20/23 02/21/23 Range/Units 16:07 20:57 03:30 RBC 2.55 L (4.30-5.90) m/uL Hgb 8.0 L (13.0-17.5) gm/dL Hct 24.0 L (39.0-53.0) % Plt Count 143 L (150-450) k/uL Chloride (98-107) mmol/L BUN (9-20) mg/dL Creatinine (0.66-1.25) mg/dL Glucose (74-99) mg/dL POC Glucose (mg/dL) 158 H 195 H (70-110) mg/dL Calcium (8.4-10.2) mg/dL C-Reactive Protein (<1.0) mg/dL Urine Protein (Negative) Urine RBC (0-5) /hpf Urine WBC (0-5) /hpf Urine Bacteria (None) /hpf Urine Mucus (None) /hpf 02/21/23 02/21/23 02/21/23 Range/Units 03:30 06:32 10:30 RBC (4.30-5.90) m/uL Hgb (13.0-17.5) gm/dL Hct (39.0-53.0) % Plt Count (150-450) k/uL Chloride 108 H (98-107) mmol/L BUN 34 H (9-20) mg/dL Creatinine 1.52 H (0.66-1.25) mg/dL Glucose 136 H (74-99) mg/dL POC Glucose (mg/dL) 153 H 147 H (70-110) mg/dL Calcium 7.7 L (8.4-10.2) mg/dL C-Reactive Protein (<1.0) mg/dL Urine Protein (Negative) Urine RBC (0-5) /hpf Urine WBC (0-5) /hpf Urine Bacteria (None) /hpf Urine Mucus (None) /hpf 02/21/23 Range/Units 11:36 RBC (4.30-5.90) m/uL Hgb (13.0-17.5) gm/dL Hct (39.0-53.0) % Plt Count (150-450) k/uL Chloride (98-107) mmol/L BUN (9-20) mg/dL Creatinine (0.66-1.25) mg/dL Glucose (74-99) mg/dL POC Glucose (mg/dL) 151 H (70-110) mg/dL Calcium (8.4-10.2) mg/dL C-Reactive Protein (<1.0) mg/dL Urine Protein (Negative) Urine RBC (0-5) /hpf Urine WBC (0-5) /hpf Urine Bacteria (None) /hpf Urine Mucus (None) /hpf Assessment and Plan Plan: 1patient with sepsis in this patient was in the hospital abdominal pain patient has been diagnosed with a ruptured bladder status post arthrotomy and operative repair patient with a fever elevated white count tachycardia source likely urinary and will need to cover for the enteric gram-negative to be the likely pathogen 2- patient did have a positive UA blood and urine cultures currently pending 3Patient fever pattern has improved we will continue the patient on cefepime 2 g every 8 hours while waiting for the culture to finalize Dictation was produced using [employer] dictation software. please excuse any grammatical, word or spelling errors.
--- NOTE | 2023-02-22 12:38 | P.PN ---
Subjective Progress Note Date: 02/22/23 Principal diagnosis: Postop fever Patient is a 77-year-old male presenting to the hospital for evaluation of lower abdominal pain that started the night before he presented to the hospital the patient also complaining of blood in his urine, patient was noticed to have ruptured bladder and the patient is status post expiratory laparotomy and repair of the bladder rupture patient did spike a fever postoperatively. On today's evaluation that is 02/22/2023, the patient remains to be afebrile, the patient is breathing comfortably on 2 L nasal cannula oxygen, the patient denies chest pain shortness of breath or cough abdominal pain is currently controlled Patient did have white count 6.59 today and he did have a drop in hemoglobin down to 6.4, creatinine is 1.2, UA was positive blood and urine cultures currently pending Objective - Vital Signs Vital signs: Vital Signs Temp 98.0 F 02/22/23 06:55 Pulse 72 02/22/23 06:55 Resp 16 02/22/23 06:55 BP 142/64 02/22/23 06:55 Pulse Ox 96 02/22/23 06:55 FiO2 40 02/20/23 08:00 Intake & Output 02/21/23 02/22/23 02/22/23 18:59 06:59 18:59 Intake Total 85 Output Total 1650 600 Balance -1565 -600 Intake: IV 10 0.9 10 Intake, IV Titration 75 Amount Sodium Chloride 0.9% 1, 75 000 ml @ 75 mls/hr IV . [id number] [facility] Rx#:[id number] Output: Urine 1650 600 Other: Voiding Method Indwelling Catheter Indwelling Catheter Indwelling Catheter - Exam GENERAL DESCRIPTION: An elderly male lying in bed in no distress RESPIRATORY SYSTEM: Unlabored breathing , decreased breath sounds at bases HEART: S1 S2 regular rate and rhythm , ABDOMEN: Soft , no tenderness EXTREMITIES: No edema feet - Labs CBC & Chem 7: 02/22/23 05:28 02/22/23 05:28 Labs: Abnormal Lab Results - Last 24 Hours (Table) 02/21/23 02/22/23 02/22/23 Range/Units 20:24 05:28 05:28 RBC 2.14 L (4.40-5.60) X 10*6/uL Hgb 6.4 H* (13.0-17.0) d/dL Hct 20.6 L (39.6-50.0) % MCHC 31.1 L (32.0-37.0) d/dL Plt Count 137 L (140-440) X 10*3/uL Chloride 111 H (96-109) mmol/L BUN/Creatinine Ratio 21.92 H (12.00-20.00) Ratio Glucose 162 H (70-110) mg/dL POC Glucose (mg/dL) 220 H (70-110) mg/dL Calcium 7.8 L (8.7-10.3) mg/dL AST 39 H (14-35) U/L Total Protein 4.7 L (6.2-8.2) d/dL Albumin 2.9 L (3.8-4.9) d/dL 02/22/23 02/22/23 Range/Units 05:49 11:33 RBC (4.40-5.60) X 10*6/uL Hgb (13.0-17.0) d/dL Hct (39.6-50.0) % MCHC (32.0-37.0) d/dL Plt Count (140-440) X 10*3/uL Chloride (96-109) mmol/L BUN/Creatinine Ratio (12.00-20.00) Ratio Glucose (70-110) mg/dL POC Glucose (mg/dL) 172 H 185 H (70-110) mg/dL Calcium (8.7-10.3) mg/dL AST (14-35) U/L Total Protein (6.2-8.2) d/dL Albumin (3.8-4.9) d/dL Microbiology - Last 24 Hours (Table) 02/20/23 13:32 Blood Culture - Preliminary Blood 02/20/23 14:10 Urine Culture - Final Urine,Voided Assessment and Plan (1) Fever Current Visit: Yes Status: Acute Code(s): R50.9 - FEVER, UNSPECIFIED S NOMED Code(s): 308502617 (2) Urinary tract infection Current Visit: Yes Status: Acute Code(s): N39.0 - URINARY TRACT INFECTION, SITE NOT SPECIFIED SNOMED Code(s): 06950616 Plan: 1patient with sepsis in this patient was in the hospital abdominal pain patient has been diagnosed with a ruptured bladder status post arthrotomy and operative repair patient with a fever elevated white count tachycardia source likely urinary and will need to cover for the enteric gram-negative to be the likely pathogen 2- patient did have a positive UA blood and urine as well as blood cultures currently pending 3Patient fever pattern has improved , patient to continue the patient on cefepime 2 g every 8 hours and monitor clinical course closely Dictation was produced using [employer] dictation software. please excuse any grammatical, word or spelling errors. Time with Patient: Less than 30
[2023-02-22] MEDS: NICOTINE 14MG/24HR PATCH TRANSDERM SCH ×2 (12:46→16:23)
[2023-02-22] MEDS: FLUTICASONE 50MCG/SPRAY NASAL 16GM EA NOSTRIL SCH ×2 (13:34→22:25)
--- NOTE | 2023-02-22 13:49 | P.PN ---
Subjective Progress Note Date: 02/22/23 Follow-up for acute kidney injury. Feeling better today. Hematuria resolved. Objective - Vital Signs Vital signs: Vital Signs Temp 98.0 F 02/22/23 06:55 Pulse 72 02/22/23 06:55 Resp 16 02/22/23 06:55 BP 142/64 02/22/23 06:55 Pulse Ox 96 02/22/23 06:55 FiO2 40 02/20/23 08:00 Intake & Output 02/21/23 02/22/23 02/22/23 18:59 06:59 18:59 Intake Total 85 Output Total 1650 600 Balance -1565 -600 Intake: IV 10 0.9 10 Intake, IV Titration 75 Amount Sodium Chloride 0.9% 1, 75 000 ml @ 75 mls/hr IV . [id number] [facility] Rx#:[id number] Output: Urine 1650 600 Other: Voiding Method Indwelling Catheter Indwelling Catheter Indwelling Catheter - Exam No acute distress S1-S2 heard Lungs clear Bella No edema - Labs CBC & Chem 7: 02/22/23 05:28 02/22/23 05:28 Labs: Abnormal Lab Results - Last 24 Hours (Table) 02/21/23 02/22/23 02/22/23 Range/Units 20:24 05:28 05:28 RBC 2.14 L (4.40-5.60) X 10*6/uL Hgb 6.4 H* (13.0-17.0) d/dL Hct 20.6 L (39.6-50.0) % MCHC 31.1 L (32.0-37.0) d/dL Plt Count 137 L (140-440) X 10*3/uL Chloride 111 H (96-109) mmol/L BUN/Creatinine Ratio 21.92 H (12.00-20.00) Ratio Glucose 162 H (70-110) mg/dL POC Glucose (mg/dL) 220 H (70-110) mg/dL Calcium 7.8 L (8.7-10.3) mg/dL AST 39 H (14-35) U/L Total Protein 4.7 L (6.2-8.2) d/dL Albumin 2.9 L (3.8-4.9) d/dL Crossmatch 02/22/23 02/22/23 02/22/23 Range/Units 05:49 11:33 12:03 RBC (4.40-5.60) X 10*6/uL Hgb (13.0-17.0) d/dL Hct (39.6-50.0) % MCHC (32.0-37.0) d/dL Plt Count (140-440) X 10*3/uL Chloride (96-109) mmol/L BUN/Creatinine Ratio (12.00-20.00) Ratio Glucose (70-110) mg/dL POC Glucose (mg/dL) 172 H 185 H (70-110) mg/dL Calcium (8.7-10.3) mg/dL AST (14-35) U/L Total Protein (6.2-8.2) d/dL Albumin (3.8-4.9) d/dL Crossmatch See Detail Microbiology - Last 24 Hours (Table) 02/20/23 13:32 Blood Culture - Preliminary Blood 02/20/23 14:10 Urine Culture - Final Urine,Voided Assessment and Plan Assessment: #1 acute kidney injury secondary to hemodynamic ATN. -Baseline creatinine 0.9 MG per DL. #2 bladder hematoma with rupture status post repair. #3 hematuria secondary to bladder pathology #4 hypertension #5 anemia secondary to acute blood loss. Plan: #1 renal function stable and improving. #2 avoid nephrotoxic agents and hypotensive episodes. #3 urology following
--- NOTE | 2023-02-22 14:09 | PN ---
PROGRESS NOTE DATE OF SERVICE: 02/22/2023 HISTORY: This is a 77-year-old gentleman who was admitted with hematuria, bladder mass, also had cystoscopy, bladder perforation was noted. The patient has also had features of sepsis and change in mental status. The patient will be monitored in ICU last night, also the patient was confused and restless. The patient has to be sedated. Today, sensorium is little bit better. CT scan showed no acute changes. The patient will be closely monitored. Thickened aortic valve is also noted. PAST MEDICAL HISTORY: Reviewed. REVIEW OF SYSTEMS: A 14-point review of systems is negative except as mentioned earlier. CURRENT MEDICATIONS: Reviewed include cefepime, doses and rest of medications noted. PHYSICAL EXAMINATION: VITAL SIGNS: Pulse is 72, blood pressure n, respirations 16. CHEST: A few scattered rhonchi. CARDIOVASCULAR: S1, S2. ABDOMEN: Soft, status post surgery. LABORATORY DATA: Hemoglobin 6.4. ASSESSMENT: 1. Hematuria, bladder mass, status post cystoscopy and evacuation include exploratory laparotomy, repair of bladder rupture, and excision of bladder tumor. 2. Vomiting, possibly hypertrophic gastritis, status post esophagogastroduodenoscopy. 3. Elevated WBC, possibly sepsis on broad-spectrum IV antibiotics. 4. Anemia symptomatic possibly secondary to hematuria. 5. Acute renal failure, possibly postobstructive. 6. Diabetes mellitus, type 2. 7. Hypertension. 8. Hyperlipidemia. 9. History of coronary artery disease, stent. 10.Change in mental status, acute metabolic encephalopathy. 11.Multiple medical issues. RECOMMENDATIONS: I recommend to continue current medication, continue symptomatic treatment. Otherwise, 2 units of transfusion with Lasix. Anemia seems to be aggravating the patient's sensorium at this time because of hypoxia. Otherwise, I would also recommend to continue the antibiotics and follow the cultures. The patient had thickened aortic valve. Cardiology is on the case and once again, the prognosis is guarded. Infectious Disease following the patient closely. Further recommendations to follow. See orders for further details. MMODL / IJN: [id number] / MTDD
[2023-02-22 16:21] LABS: Glucose,Whole Blood 181 mg/dL (70-110)
[2023-02-22 21:12] LABS: Glucose,Whole Blood 158 mg/dL (70-110)
[2023-02-22] MEDS: SODIUM CHLORIDE 0.9% IRRIGATIO 3,000 ML IRRIGATION SCH (22:03)
[2023-02-22] MEDS: TAMSULOSIN 0.4 MG CAP.ER.24H PO SCH (22:20)
[2023-02-22] MEDS: ATORVASTATIN 40 MG TAB PO SCH (22:20)
[2023-02-23] MEDS: CEFEPIME 2 GM in SODIUM CHLORIDE 0.9% 100 ML IVPB SCH ×2 (05:16→16:20)
[2023-02-23 06:01] LABS: Glucose,Whole Blood 138 mg/dL (70-110)
[2023-02-23] MEDS: hydrALAZINE HCL 50 MG TAB PO SCH ×2 (06:17→16:20)
[2023-02-23] MEDS: metFORMIN 500 MG TAB PO SCH ×2 (06:17→16:19)
[2023-02-23] MEDS: FINASTERIDE 5 MG TAB PO SCH (07:32)
[2023-02-23] MEDS: FOLIC ACID 1 MG TAB PO SCH (07:32)
[2023-02-23] MEDS: GABAPENTIN 300 MG CAP PO SCH (07:32)
[2023-02-23] MEDS: MULTIVITAMINS, THERA 1 EACH TAB PO SCH (07:32)
[2023-02-23] MEDS: atenoloL 50 MG TAB PO SCH ×3 (07:33→22:16)
[2023-02-23] MEDS: FLUTICASONE 50MCG/SPRAY NASAL 16GM EA NOSTRIL SCH ×2 (07:33→22:14)
[2023-02-23] MEDS: THIAMINE 100 MG TAB PO SCH (07:33)
[2023-02-23] MEDS: PANTOPRAZOLE 40 MG/10 ML VIAL IVP SCH ×3 (07:33→22:27)
[2023-02-23] MEDS: LORATADINE 10 MG TAB PO SCH (07:33)
[2023-02-23] MEDS: NICOTINE 14MG/24HR PATCH TRANSDERM SCH (07:33)
--- NOTE | 2023-02-23 10:54 | P.PN ---
Subjective HISTORY OF PRESENT ILLNESS: Patient is status post cystoscopy, exploratory laparotomy, repair of bladder rupture, and excision of bladder tumor. The patient has also been experiencing hematuria. He has received 2 units packed RBCs. Hemoglobin yesterday 6.4. Repeat this morning is currently pending. Patient's Bella catheter this morning with no evidence of hematuria. Echocardiogram completed revealing ejection fraction 55-60%, mild aortic stenosis, mild mitral regurgitation, mild tricuspid regurgitation, and thickening of aortic valve leaflet noted. Patient examined this morning at the bedside. Patient has lethargic. He appears to be resting comfortably. He has a patient sitter at the bedside. Blood cultures are negative thus far. PHYSICAL EXAM: VITAL SIGNS: Reviewed. GENERAL: Well-developed in no acute distress. NECK: Supple. No JVD or thyromegaly LUNGS: Respirations even and unlabored. Lungs essentially clear to auscultation bilaterally. HEART: Regular rate and rhythm. S1 and S2 heard. Systolic murmur noted. EXTREMITIES: Normal range of motion. No clubbing or cyanosis. Peripheral pulses intact. No lower extremity edema ASSESSMENT: Lower abdominal pain Hematuria Acute blood loss anemia Status post cystoscopy, exploratory laparotomy, repair of bladder rupture, and excision of bladder tumor Thickened aortic valve leaflet, not suggestive of vegetation Acute kidney injury History of coronary artery disease with previous stenting Hypertension Hyperlipidemia Diabetes PLAN: Continue current cardiac medications Recommend adding aspirin 81 mg daily for history of coronary artery disease. However we will hold off at this time secondary to acute anemia There is no indication for NINOSKA at this time We will sign off. Please reconsult if needed. Nurse practitioner note has been reviewed by physician. Signing provider agrees with the documented findings, assessment, and plan of care. Objective - Vital Signs Vital signs: Vital Signs Temp 99.1 F 02/23/23 06:52 Pulse 70 02/23/23 06:52 Resp 16 02/23/23 06:52 BP 166/74 02/23/23 06:52 Pulse Ox 94 L 02/23/23 06:52 FiO2 40 02/20/23 08:00 Intake & Output 02/22/23 02/23/23 02/23/23 18:59 06:59 18:59 Intake Total 310 280 Output Total 800 1500 Balance -490 -1220 Intake: Blood Product 310 280 Rc As-1 Unit 310 [id number] Rc Pheresis As-3 Unit 0 280 [id number] Output: Urine 800 1500 Other: Voiding Method Indwelling Catheter Indwelling Catheter Indwelling Catheter # Bowel Movements 0 - Labs CBC & Chem 7: 02/22/23 05:28 02/22/23 05:28 Labs: Abnormal Lab Results - Last 24 Hours (Table) 02/22/23 02/22/23 02/22/23 Range/Units 05:28 11:33 12:03 RBC 2.14 L (4.40-5.60) X 10*6/uL Hgb 6.4 H* (13.0-17.0) d/dL Hct 20.6 L (39.6-50.0) % MCHC 31.1 L (32.0-37.0) d/dL Plt Count 137 L (140-440) X 10*3/uL POC Glucose (mg/dL) 185 H (70-110) mg/dL Crossmatch See Detail 02/22/23 02/22/23 02/23/23 Range/Units 16:20 21:08 05:52 RBC (4.40-5.60) X 10*6/uL Hgb (13.0-17.0) d/dL Hct (39.6-50.0) % MCHC (32.0-37.0) d/dL Plt Count (140-440) X 10*3/uL POC Glucose (mg/dL) 181 H 158 H 138 H (70-110) mg/dL Crossmatch Microbiology - Last 24 Hours (Table) 02/21/23 10:08 Blood Culture - Preliminary Blood 02/20/23 13:32 Blood Culture - Preliminary Blood
[2023-02-23 11:30] LABS: Glucose,Whole Blood 187 mg/dL (70-110)
--- NOTE | 2023-02-23 12:38 | P.PN ---
Subjective This is a pleasant 77 years old male with past medical history of coronary artery disease, hypertension, hyperlipidemia, diabetes mellitus, GERD. Patient presents because urinary symptoms related to urinary bladder tumor with perforation status post cystoscopy and exploratory laparotomy and excision of the recurrent bladder tumor and repair of perforation on 02/19. Today is postop day #4. He still has Bella catheter with irrigation. His suprapubic catheter. Also patient Agitation confused at time and there is a sitter at bedside for safety Active Medications Generic Name Dose Route Start Last Admin Trade Name Freq PRN Reason Stop Dose Admin Amitriptyline HCl 10 mg 02/19/23 21:00 02/22/23 12:25 Amitriptyline Hcl 10 Mg Tab PO 10 mg HS BLOSSOM Administration Atenolol 50 mg 02/19/23 09:00 02/23/23 07:33 Atenolol 50 Mg Tab PO 50 mg DAILY BLOSSOM Administration Atenolol 50 mg 02/21/23 21:00 02/22/23 22:20 Atenolol 50 Mg Tab PO 50 mg HS BLOSSOM Administration Atorvastatin Calcium 40 mg 02/19/23 21:00 02/22/23 22:20 Atorvastatin 40 Mg Tab PO 40 mg HS BLOSSOM Administration Ergocalciferol 1,250 mcg 02/24/23 09:00 Ergocalciferol 1,250 Mcg (50,000 Iu) Capsule PO Q14D BLOSSOM Finasteride 5 mg 02/20/23 09:00 02/23/23 07:32 Finasteride 5 Mg Tab PO 5 mg DAILY BLOSSOM Administration Fluticasone Propionate 1 spray 02/19/23 21:00 02/23/23 07:33 Fluticasone 50mcg/Snyder Nasal 16gm EA NOSTRIL Not Given BID BLOSSOM Folic Acid 1 mg 02/22/23 12:00 02/23/23 07:32 Folic Acid 1 Mg Tab PO 1 mg DAILY@1200 BLOSSOM Administration Gabapentin 300 mg 02/20/23 09:00 02/23/23 07:32 Gabapentin 300 Mg Cap PO 300 mg DAILY BLOSSOM Administration Hydralazine HCl 10 mg 02/19/23 02:20 02/21/23 19:00 Hydralazine Hcl 20 Mg/Ml 1 Ml Vial IVP 10 mg Q6HR PRN Administration Blood Pressure - High Hydralazine HCl 100 mg 02/20/23 17:30 02/23/23 06:17 Hydralazine Hcl 50 Mg Tab PO 100 mg BID-W/MEALS BLOSSOM Administration Hydromorphone HCl 1 mg 02/18/23 21:24 02/21/23 00:52 Hydromorphone 1 Mg/Ml 1 Ml Syringe IVP 1 mg Q4HR PRN Administration Pain Hydromorphone HCl 0.5 mg 02/19/23 13:42 02/21/23 06:41 Hydromorphone 0.5 Mg/0.5 Ml Syringe IVP 0.5 mg Q4HR PRN Administration Breakthrough Pain Sodium Chloride 3,000 mls @ 1 mls/hr 02/18/23 20:32 02/22/23 22:03 Saline 0.9% Irrigation IRRIGATION Not Given CONTINUOUS BLOSSOM Protocol Sodium Chloride 1,000 mls @ 75 mls/hr 02/18/23 23:30 02/22/23 22:22 Saline 0.9% IV 75 mls/hr .[id number] BLOSSOM Administration Cefepime HCl 2 gm/ Sodium 100 mls @ 25 mls/hr 02/20/23 16:00 02/23/23 05:16 Chloride IVPB 25 mls/hr Q12H BLOSSOM Administration Protocol Loratadine 10 mg 02/20/23 09:00 02/23/23 07:33 Loratadine 10 Mg Tab PO 10 mg DAILY BLOSSOM Administration Metformin HCl 500 mg 02/19/23 17:30 02/23/23 06:17 Metformin 500 Mg Tab PO 500 mg BID-W/MEALS BLOSSOM Administration Multivitamins 1 each 02/22/23 12:00 02/23/23 07:32 Multivitamins, Thera 1 Each Tab PO 1 each DAILY@1200 BLOSSOM Administration Naloxone HCl 0.2 mg 02/18/23 23:24 Naloxone 0.4 Mg/Ml 1 Ml Vial IV Q2M PRN Opioid Reversal Nicotine 1 patch 02/20/23 09:00 02/23/23 07:33 Nicotine 14mg/24hr Patch TRANSDERM Not Given DAILY BLOSSOM Nitroglycerin 0.4 mg 02/19/23 12:34 Nitroglycerin Sl Tabs 0.4 Mg Tab SUBLINGUAL Q5M PRN Chest Pain Ondansetron HCl 4 mg 02/19/23 02:21 02/19/23 02:34 Ondansetron 4 Mg/2 Ml Vial IVP 4 mg Q6HR PRN Administration Nausea And Vomiting Pantoprazole Sodium 40 mg 02/19/23 12:15 02/23/23 07:33 Pantoprazole 40 Mg/10 Ml Vial IVP 40 mg BID BLOSSOM Administration Tamsulosin HCl 0.4 mg 02/19/23 21:00 02/22/23 22:20 Tamsulosin 0.4 Mg Cap.Er.24h PO 0.4 mg HS BLOSSOM Administration Thiamine HCl 100 mg 02/22/23 12:00 02/23/23 07:33 Thiamine 100 Mg Tab PO 100 mg DAILY@1200 BLOSSOM Administration Objective - Vital Signs Vital signs: Vital Signs Temp 99.1 F 02/23/23 06:52 Pulse 70 02/23/23 06:52 Resp 16 02/23/23 06:52 BP 166/74 02/23/23 06:52 Pulse Ox 94 L 02/23/23 06:52 FiO2 40 02/20/23 08:00 Intake & Output 02/22/23 02/23/23 02/23/23 18:59 06:59 18:59 Intake Total 310 280 Output Total 800 1500 Balance -490 -1220 Intake: Blood Product 310 280 Rc As-1 Unit 310 [id number] Rc Pheresis As-3 Unit 0 280 [id number] Output: Urine 800 1500 Other: Voiding Method Indwelling Catheter Indwelling Catheter Indwelling Catheter # Bowel Movements 0 - Exam -GENERAL: The patient is confused and lethargic, does not follow commands, not in any acute distress. Well developed, well nourished. HEENT: Pupils are round and equally reacting to light. EOMI. No scleral icterus. No conjunctival pallor. Normocephalic, atraumatic. No pharyngeal erythema. No thyromegaly. CARDIOVASCULAR: S1 and S2 present. No murmurs, rubs, or gallops. PULMONARY: Chest is clear to auscultation, no wheezing , no crackles. -ABDOMEN: Soft, nondistended, normoactive bowel sounds. No palpable organomegaly. Surgical wound closed with dressing in place, surrounding tenderness as expected MUSCULOSKELETAL: No joint swelling or deformity. EXTREMITIES: No cyanosis, clubbing, or pedal edema. NEUROLOGICAL: Gross neurological examination did not reveal any focal deficits. SKIN: No rashes. no petechiae. - Labs CBC & Chem 7: 02/22/23 05:28 02/22/23 05:28 Labs: Abnormal Lab Results - Last 24 Hours (Table) 02/22/23 02/22/23 02/22/23 Range/Units 12:03 16:20 21:08 POC Glucose (mg/dL) 181 H 158 H (70-110) mg/dL Crossmatch See Detail 02/23/23 02/23/23 Range/Units 05:52 11:28 POC Glucose (mg/dL) 138 H 187 H (70-110) mg/dL Crossmatch Microbiology - Last 24 Hours (Table) 02/21/23 10:08 Blood Culture - Preliminary Blood 02/20/23 13:32 Blood Culture - Preliminary Blood Assessment and Plan Assessment: Bladder tumor with perforation status post cystoscopy with exploratory laparotomy and excision of urinary bladder tumor and repair of perforation on 02/19. Severe anemia secondary to above Acute kidney injury, mild Acute urinary tract infection thick aortic valve with negative blood culture so far altered mental status, secondary to toxic/metabolic encephalopathy Diabetes mellitus Hypertension Hyperlipidemia History of osteoarthritis Hypothyroidism Plan: Continue with cefepime Continue with Bella catheter with continuous irrigation Urology consult is appreciated Follow-up urinary bladder pathology results Cartilage team sign of the case Urologist and general surgery and nephrology consult the case as well Labs and medication were reviewed.. Continue same treatment. Continue with symptomatic treatment. Resume home medication. Monitor lytes and vitals. DVT and GI prophylaxis. Further recommendations depends on the clinical course of the patient DVT prophylaxis: no Subcutaneous heparin. 4 severe anemia and hematuria GI Prophylaxis: Pepcid PT/OT: Pending Prognosis is guarded
--- NOTE | 2023-02-23 13:41 | P.PN ---
Subjective Progress Note Date: 02/23/23 CHIEF COMPLAINT: Bladder mass HISTORY OF PRESENT ILLNESS: Patient presented with hematuria and evidence of bladder mass status post urological procedure. Hematuria improved. Patient denies abdominal pain. He did an EGD that revealed evidence of gastritis. Tolerating diet. Afebrile. Hemoglobin 6.4 yesterday. Status post 2 units of blood. Labs pending for today PHYSICAL EXAM: VITAL SIGNS: Reviewed. GENERAL: Well-developed in no acute distress. ABDOMEN: Soft. Nondistended. Nontender. NEUROLOGIC: Awake and alert ASSESSMENT: 1. Gastritis 2. Bladder tumor status post surgical intervention by urology PLAN: -Continue regular diet -Continue supportive care -Continue PPI Physician Shop Estimator note has been reviewed by physician. Signing provider agrees with the documented findings, assessment, and plan of care. I have personally seen and examined the patient, reviewed the CHART CLERK /PAs history, exam and MDM and agree with the assessment and plan as written. Based on total visit time, I have performed more than 50% of the visit. As above: Patient doing well today. No abdominal pain. Continue diet as tolerated. We will sign off. Please call if needed Objective - Vital Signs Vital signs: Vital Signs Temp 99.1 F 02/23/23 06:52 Pulse 70 02/23/23 06:52 Resp 16 02/23/23 06:52 BP 166/74 02/23/23 06:52 Pulse Ox 94 L 02/23/23 06:52 FiO2 40 02/20/23 08:00 Intake & Output 02/22/23 02/23/23 02/23/23 18:59 06:59 18:59 Intake Total 310 280 Output Total 800 1500 Balance -490 -1220 Intake: Blood Product 310 280 Rc As-1 Unit 310 [id number] Rc Pheresis As-3 Unit 0 280 [id number] Output: Urine 800 1500 Other: Voiding Method Indwelling Catheter Indwelling Catheter Indwelling Catheter # Bowel Movements 0 - Labs CBC & Chem 7: 02/23/23 07:26 02/23/23 07:26 Labs: Abnormal Lab Results - Last 24 Hours (Table) 02/22/23 02/22/23 02/22/23 Range/Units 12:03 16:20 21:08 POC Glucose (mg/dL) 181 H 158 H (70-110) mg/dL Crossmatch See Detail 02/23/23 02/23/23 Range/Units 05:52 11:28 POC Glucose (mg/dL) 138 H 187 H (70-110) mg/dL Crossmatch Microbiology - Last 24 Hours (Table) 02/21/23 10:08 Blood Culture - Preliminary Blood 02/20/23 13:32 Blood Culture - Preliminary Blood
[2023-02-23 14:09] LABS: ALT 13 U/L (10-49); AST 30 U/L (14-35); Albumin 3.1 d/dL (3.8-4.9); Albumin/Globulin Ratio 1.63 Ratio (1.60-3.17); Alkaline Phosphatase 55 U/L (41-126); BUN/Creat Ratio 20.58 Ratio (12.00-20.00); Blood Urea Nitrogen 24.7 mg/dL (9.0-27.0); Carbon Dioxide 23.6 mmol/L (21.6-31.8); Chloride 108 mmol/L (96-109); Globulin 1.9 d/dL (1.6-3.3); Glucose 136 mg/dL (70-110); Sodium 143 mmol/L (135-145); Total Bilirubin 0.8 mg/dL (0.3-1.2)
--- NOTE | 2023-02-23 14:15 | P.PN ---
Subjective Patient is seen for follow-up for acute kidney injury. Renal function has improved. Serum creatinine staying at about 1.2 mg/dL. is present at bedside. No significant complaints today. Patient is sleepy but arousable Objective - Vital Signs Vital signs: Vital Signs Temp 99.1 F 02/23/23 06:52 Pulse 70 02/23/23 06:52 Resp 16 02/23/23 06:52 BP 166/74 02/23/23 06:52 Pulse Ox 94 L 02/23/23 06:52 FiO2 40 02/20/23 08:00 Intake & Output 02/22/23 02/23/23 02/23/23 18:59 06:59 18:59 Intake Total 310 280 Output Total 800 1500 Balance -490 -1220 Intake: Blood Product 310 280 Rc As-1 Unit 310 [id number] Rc Pheresis As-3 Unit 0 280 [id number] Output: Urine 800 1500 Other: Voiding Method Indwelling Catheter Indwelling Catheter Indwelling Catheter # Bowel Movements 0 - Exam Sleeping but arousable Examination of the heart S1 and S2 Examination of the lungs bilateral breath sounds are heard Abdomen is soft nontender Examination of lower extremity shows no significant edema - Labs CBC & Chem 7: 02/22/23 05:28 02/23/23 07:26 Labs: Abnormal Lab Results - Last 24 Hours (Table) 02/22/23 02/22/23 02/22/23 Range/Units 12:03 16:20 21:08 BUN/Creatinine Ratio (12.00-20.00) Ratio Glucose (70-110) mg/dL POC Glucose (mg/dL) 181 H 158 H (70-110) mg/dL Calcium (8.7-10.3) mg/dL Total Protein (6.2-8.2) d/dL Albumin (3.8-4.9) d/dL Crossmatch See Detail 02/23/23 02/23/23 02/23/23 Range/Units 05:52 07:26 11:28 BUN/Creatinine Ratio 20.58 H (12.00-20.00) Ratio Glucose 136 H (70-110) mg/dL POC Glucose (mg/dL) 138 H 187 H (70-110) mg/dL Calcium 8.0 L (8.7-10.3) mg/dL Total Protein 5.0 L (6.2-8.2) d/dL Albumin 3.1 L (3.8-4.9) d/dL Crossmatch Microbiology - Last 24 Hours (Table) 02/21/23 10:08 Blood Culture - Preliminary Blood 02/20/23 13:32 Blood Culture - Preliminary Blood Assessment and Plan Assessment: #1 acute kidney injury secondary to hemodynamic ATN. -Baseline creatinine 0.9 MG per DL. #2 bladder hematoma with rupture status post repair. #3 hematuria secondary to bladder rupture and surgery #4 hypertension #5 anemia secondary to acute blood loss. Plan: May continue with IV fluids We'll see the patient on a when necessary basis
[2023-02-23 15:13] LABS: Basophils # (A) 0.03 X 10*3/uL (0.00-0.10); Basophils % (A) 0.4 %; Eosinophils # (A) 0.18 X 10*3/uL (0.04-0.35); Eosinophils % (A) 2.2 %; HCT 27.9 % (39.6-50.0); Lymphocytes # (A) 0.81 X 10*3/uL (0.90-5.00); MCH 29.2 pg (27.0-32.0); MCHC 32.3 d/dL (32.0-37.0); MCV 90.6 FL (80.0-97.0); Mean Platelet Volume 10.4 FL (9.5-12.2); Monocytes # (A) 0.68 X 10*3/uL (0.20-1.00); Monocytes % (A) 8.4 %; NRBC Per 100 WBC 0 X 10*3/uL (0.00-0.01); Neutrophils # (A) 6.23 X 10*3/uL (1.80-7.70); Neutrophils % (A) 77.3 %; Platelet Count 138 X 10*3/uL (140-440); RBC 3.08 X 10*6/uL (4.40-5.60); RDW 16.5 % (11.5-14.5); WBC 8.07 X 10*3/uL (4.50-10.00)
--- NOTE | 2023-02-23 15:38 | P.PN ---
Subjective Progress Note Date: 02/23/23 This is a 77-year-old male patient with a known history of benign prostatic hyperplasia, hypertension, hyperlipidemia, coronary artery disease with previous stent placements, diabetes mellitus, gastroesophageal reflux disease. He presented here to the emergency room on 02/18/2023 with complaints of difficulty in urination and blood in his urine. He was having suprapubic pain and difficulty making any urine. Ultrasound of the bladder revealed a mass or debris-filled urinary bladder. Bilateral renal cyst. Computed tomography scan of the abdomen and pelvis revealed a large heterogenous-appearing urinary bladder with minimal contrast present on delayed images. Urinary bladder appears to be filled with debris. Polypoid mass along the anterior lateral left urinary bladder was not excluded. On 02/19/2023 had undergone a cystoscopy with evacuation of clots, exploratory laparotomy, open excision of bladder tumor and repair of bladder laceration. A suprapubic catheter was placed. Late last night and early this morning the patient developed confusion and agitation. He was having rhonchorous respirations as well. He was subsequently transferred to the intensive care unit and placed on BiPAP 10/ on 30% FiO2. His restlessness and confusion required Precedex infusion currently at 0.4 mcg/kg per hour. Chest x-ray reveals chronic changes without evidence for acute pulmonary disease. He is more calm and cooperative. He will be transitioned to nasal cannula. Continuous bladder irrigation is present. Heme no hematuria noted in urine output. He has normal saline at 75 ML's per hour. Antibiotics in the form of cefazolin. White count 8.8. Hemoglobin 7.6. Platelets 135. Arterial blood gases on 40% FiO2 had revealed a PaO2 of 113, pCO2 47, pH 7.25. Sodium 141. Potassium 5.9. Bicarb 27. BUN 39. Creatinine 2.07. Glucose 141. Lactic acid 4.0. The patient is seen today 02/21/2023 in follow-up in the intensive care unit. He is currently sitting up in bed. Awake and alert in no acute distress. He is having episodes of confusion. He has been off the Precedex. sewer hand at the bedside. Currently on 2 L/m per nasal cannula. He continues with continuous bladder irrigation. No significant clot noted. White count 6.1. Hemoglobin 8.0. Platelets 143. Sodium 139. Potassium 4.6. Bicarb 25. BUN 34. Creatinine 1.52. Glucose 136. He has normal saline at 75 ML's per hour. Echocardiogram revealed preserved left ventricular systolic function with ejec tion fraction 55-60%. There is some thickening of the aortic valve leaflet vegetation cannot be excluded. He remains on cefepime. NicoDerm patch in place. He did undergo EGD today which revealed mild antral gastritis. No evidence of ischemic stomach. Progress note dated 02/22/2023.The patient is seen today on the general medical floor, room 451. The patient's currently on 2 L of oxygen. He is receiving saline at 75 mL an hour. The patient apparently has been misbehaving, and has a sitter at the bedside. Apparently he has spit at the sitter. Labs today include a white count of 6.59, hemoglobin 6.4, hematocrit 20.6, and a platelet count of 137,000. Sodium 142, potassium 4, chlorides 111, CO2 23, BUN 26, and creatinine 1.2. 2 units of packed red blood cells were ordered, but not yet given. On today's evaluation of 02/23/2023, the patient is resting comfortably in bed and the patient is currently on 2 L of oxygen by nasal cannula. Notices signs of any significant respiratory distress. No hematuria. Denies having any abdominal pain or abdominal distention. He did have blood loss anemia with drop in hemoglobin down to 6.4 and the patient underwent an EGD that showed evidence of gastritis. He received a total of 2 units of packed RBC and a follow-up hemoglobin from today is up to 9.0. Platelet count is at 138. BUN is at 24 with a creatinine of 1.20 sodium level is at 143. He has no issues with pain. Dilaudid to be discontinued. Noted the patient has undergone cystoscopy and expiratory laparotomy and excision of a recurrent bladder tumor and repair of a bladder perforation and this was done on 02/19/2023 and the patient is postop day #4. Is also known to have coronary artery disease, hypertension, BPH, hyperlipidemia, and diabetes mellitus. Objective - Vital Signs Vital signs: Vital Signs Temp 99.1 F 02/23/23 06:52 Pulse 70 02/23/23 06:52 Resp 16 02/23/23 06:52 BP 166/74 02/23/23 06:52 Pulse Ox 94 L 02/23/23 06:52 FiO2 40 02/20/23 08:00 Intake & Output 02/22/23 02/23/23 02/23/23 18:59 06:59 18:59 Intake Total 310 280 Output Total 800 1500 Balance -490 -1220 Intake: Blood Product 310 280 Rc As-1 Unit 310 [id number] Rc Pheresis As-3 Unit 0 280 [id number] Output: Urine 800 1500 Other: Voiding Method Indwelling Catheter Indwelling Catheter Indwelling Catheter # Bowel Movements 0 - Exam No acute distress, confused, currently on 2 L. HEENT examination is grossly unremarkable. Neck supple. Full range of motion. No adenopathy thyromegaly or neck vein distention. Cardiovascular examination reveals regular rhythm rate. S1-S2 normal. No S3 or S4. No discernible murmur noted. Lungs reveal mostly clear breath sounds. Scattered mild rhonchi noted. No wheezes or crackles. Abdomen soft bowel sounds are heard. No masses or tenderness. Extremities are intact. No cyanosis clubbing or edema. Skin is without rash or lesion. Neurologic examination reveals patient to be confused. - Labs CBC & Chem 7: 02/23/23 07:26 02/23/23 07:26 Labs: Abnormal Lab Results - Last 24 Hours (Table) 02/22/23 02/22/23 02/22/23 Range/Units 12:03 16:20 21:08 POC Glucose (mg/dL) 181 H 158 H (70-110) mg/dL Crossmatch See Detail 02/23/23 02/23/23 Range/Units 05:52 11:28 POC Glucose (mg/dL) 138 H 187 H (70-110) mg/dL Crossmatch Microbiology - Last 24 Hours (Table) 02/21/23 10:08 Blood Culture - Preliminary Blood 02/20/23 13:32 Blood Culture - Preliminary Blood Assessment and Plan Plan: Bladder tumor post extensive laparotomy and open surgical resection and repair of a bladder laceration. The patient is postop day #4. Hematuria and urinary retention secondary to a large heterogenous-appearing urinary bladder filled with debris. Polypoid mass on the anterior left lateral urinary bladder not excluded. Status post cystoscopy and evacuation of clots, exploratory laparotomy, open excision of bladder tumor area. Bladder laceration. Patient currently has a markedly catheter in place. Over 500 mL of clot removed from bladder. Extraperitoneal bladder rupture was identified at the left bladder dome and repaired. An anterior bladder dome tumor was identified and excised. Blood loss Anemia secondary to above. The patient received a total of 2 units of packed RBC and hemoglobin currently is up to 9 Acute renal failure, improving and a creatinine is normalizing Altered mental status with agitation and confusion, recovered Acute hypoxemic respiratory failure requiring BiPAP support, recovered and the patient is currently on 2 L of oxygen by nasal cannula Coronary artery disease with previous stent placements. History of benign prostatic hyperplasia. Hypertension. Hyperlipidemia. Diabetes mellitus. History of chronic tobacco dependence. Plan: Patient is still recovering from his surgery and the patient is currently postop day #4 Acute hypoxic respiratory failure is improved and the patient is currently on 2 L O2 nasal cannula Anemia stable and the patient's hemoglobin is up to 9 Renal function continues to improve Continue broad-spectrum antibiotics with IV cefepime Suprapubic catheter in place We'll continue to follow
[2023-02-23 16:31] LABS: Glucose,Whole Blood 226 mg/dL (70-110)
--- NOTE | 2023-02-23 17:58 | P.PN ---
Subjective Progress Note Date: 02/23/23 Principal diagnosis: POD #4, s/p evacuation of clot and repair of bladder rupture The patient underwent exploratory laparotomy with repair of bladder rupture. A bladder tumor was excised. He remains combative, but voices no complaints. Specifically, he denies nausea, vomiting, chest pain, and dyspnea. He is tolerating diet but refuses to take oral medications. Objective - Vital Signs Vital signs: Vital Signs Temp 98.9 F 02/23/23 14:29 Pulse 69 02/23/23 14:29 Resp 18 02/23/23 14:29 BP 145/75 02/23/23 14:29 Pulse Ox 96 02/23/23 14:29 FiO2 40 02/20/23 08:00 Intake & Output 02/22/23 02/23/23 02/23/23 18:59 06:59 18:59 Intake Total 310 280 480 Output Total 800 1500 400 Balance -490 -1220 80 Intake: Oral 480 Blood Product 310 280 Rc As-1 Unit 310 [id number] Rc Pheresis As-3 Unit 0 280 [id number] Output: Urine 800 1500 400 Other: Voiding Method Indwelling Catheter Indwelling Catheter Indwelling Catheter # Bowel Movements 0 - Constitutional General appearance: Present: average body habitus, no acute distress - Gastrointestinal Gastrointestinal Comment(s): Abdomen soft, non-distended. Incision clean, dry, and intact. CHELSEA drainage is minimal. The suprapubic cystostomy tube is draining clear yellow urine. - Psychiatric Psychiatric: Present: A&O x's 3 - Labs CBC & Chem 7: 02/23/23 07:26 02/23/23 07:26 Labs: Abnormal Lab Results - Last 24 Hours (Table) 02/22/23 02/22/23 02/23/23 Range/Units 12:03 21:08 05:52 RBC (4.40-5.60) X 10*6/uL Hgb (13.0-17.0) d/dL Hct (39.6-50.0) % RDW (11.5-14.5) % Plt Count (140-440) X 10*3/uL Lymphocytes # (0.90-5.00) X 10*3/uL BUN/Creatinine Ratio (12.00-20.00) Ratio Glucose (70-110) mg/dL POC Glucose (mg/dL) 158 H 138 H (70-110) mg/dL Calcium (8.7-10.3) mg/dL Total Protein (6.2-8.2) d/dL Albumin (3.8-4.9) d/dL Crossmatch See Detail 02/23/23 02/23/23 02/23/23 Range/Units 07:26 07:26 11:28 RBC 3.08 L (4.40-5.60) X 10*6/uL Hgb 9.0 L (13.0-17.0) d/dL Hct 27.9 L (39.6-50.0) % RDW 16.5 H (11.5-14.5) % Plt Count 138 L (140-440) X 10*3/uL Lymphocytes # 0.81 L (0.90-5.00) X 10*3/uL BUN/Creatinine Ratio 20.58 H (12.00-20.00) Ratio Glucose 136 H (70-110) mg/dL POC Glucose (mg/dL) 187 H (70-110) mg/dL Calcium 8.0 L (8.7-10.3) mg/dL Total Protein 5.0 L (6.2-8.2) d/dL Albumin 3.1 L (3.8-4.9) d/dL Crossmatch 02/23/23 Range/Units 16:29 RBC (4.40-5.60) X 10*6/uL Hgb (13.0-17.0) d/dL Hct (39.6-50.0) % RDW (11.5-14.5) % Plt Count (140-440) X 10*3/uL Lymphocytes # (0.90-5.00) X 10*3/uL BUN/Creatinine Ratio (12.00-20.00) Ratio Glucose (70-110) mg/dL POC Glucose (mg/dL) 226 H (70-110) mg/dL Calcium (8.7-10.3) mg/dL Total Protein (6.2-8.2) d/dL Albumin (3.8-4.9) d/dL Crossmatch Microbiology - Last 24 Hours (Table) 02/21/23 10:08 Blood Culture - Preliminary Blood 02/20/23 13:32 Blood Culture - Preliminary Blood Assessment and Plan Assessment: Patient's condition is improved. He received 2 units of packed RBCs yesterday. Pathology report is pending. (1) Gross hematuria Current Visit: Yes Status: Acute Code(s): R31.0 - GROSS HEMATURIA SNOMED Code(s): 180633266 (2) Urinary retention Current Visit: Yes Status: Acute Code(s): R33.9 - RETENTION OF URINE, UNSPECIFIED SNOMED Code(s): 331954167 (3) Prostate nodule Current Visit: Yes Status: Acute Code(s): N40.2 - NODULAR PROSTATE WITHOUT LOWER URINARY TRACT SYMPTOMS SNOMED Code(s): 518274215581719 Plan: The patient is urologically stable. The CHELSEA drain will be removed. The Bella catheter will remain plugged, and the suprapubic tube will remain connected to gravity drainage. A PT consult has been placed to improve the patient's strength and inability to ambulate.
[2023-02-23 20:59] LABS: Glucose,Whole Blood 171 mg/dL (70-110)
[2023-02-23] MEDS: SODIUM CHLORIDE 0.9% 1,000 ML IV SCH ×2 (22:03→22:16)
[2023-02-23] MEDS: SODIUM CHLORIDE 0.9% IRRIGATIO 3,000 ML IRRIGATION SCH (22:05)
[2023-02-23] MEDS: AMITRIPTYLINE HCL 10 MG TAB PO SCH (22:13)
[2023-02-23] MEDS: ATORVASTATIN 40 MG TAB PO SCH (22:14)
[2023-02-23] MEDS: TAMSULOSIN 0.4 MG CAP.ER.24H PO SCH (22:14)
[2023-02-24] MEDS: CEFEPIME 2 GM in SODIUM CHLORIDE 0.9% 100 ML IVPB SCH ×2 (04:15→15:27)
[2023-02-24 06:09] LABS: Glucose,Whole Blood 143 mg/dL (70-110)
[2023-02-24] MEDS: metFORMIN 500 MG TAB PO SCH ×2 (06:24→17:54)
[2023-02-24] MEDS: hydrALAZINE HCL 50 MG TAB PO SCH ×3 (06:24→20:01)
[2023-02-24] MEDS: FINASTERIDE 5 MG TAB PO SCH (08:17)
[2023-02-24] MEDS: GABAPENTIN 300 MG CAP PO SCH (08:17)
[2023-02-24] MEDS: atenoloL 50 MG TAB PO SCH ×2 (08:18→20:02)
[2023-02-24] MEDS: PANTOPRAZOLE 40 MG/10 ML VIAL IVP SCH ×2 (08:18→20:02)
[2023-02-24] MEDS: FLUTICASONE 50MCG/SPRAY NASAL 16GM EA NOSTRIL SCH ×2 (08:19→20:02)
[2023-02-24] MEDS: LORATADINE 10 MG TAB PO SCH (08:29)
[2023-02-24] MEDS: NICOTINE 14MG/24HR PATCH TRANSDERM SCH (08:31)
[2023-02-24] MEDS ORDERED: ERGOCALCIFEROL 1,250 MCG (50,000 IU) CAPSULE PO SCH (09:00)
--- NOTE | 2023-02-24 10:51 | P.PN ---
Subjective This is a pleasant 77 years old male with past medical history of coronary artery disease, hypertension, hyperlipidemia, diabetes mellitus, GERD. Patient presents because urinary symptoms related to urinary bladder tumor with perforation status post cystoscopy and exploratory laparotomy and excision of the recurrent bladder tumor and repair of perforation on 02/19. Today is postop day #4. He still has Bella catheter with irrigation. His suprapubic catheter. Also patient Agitation confused at time and there is a sitter at bedside for safety 02/24/2023 Overall patient is improving and doing well Patient is hemodynamically stable, blood pressure on the high side, hydralazine 100 mg twice a day increased into 3 times a day. Blood pressure this morning was 188/78. Urologically patient is a stable, we recommend to keep suprapubic catheter with the drainage to gravity nephrology and Gen. surgery team signed off the case licensed social worker consulted for placement Sitter can be discontinued as patient is calm. 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 Well developed, well nourished. HEENT: Pupils are round and equally reacting to light. EOMI. No scleral icterus. No conjunctival pallor. Normocephalic, atraumatic. No pharyngeal erythema. No thyromegaly. CARDIOVASCULAR: S1 and S2 present. No murmurs, rubs, or gallops. PULMONARY: Chest is clear to auscultation, no wheezing , no crackles. -ABDOMEN: Soft, nondistended, normoactive bowel sounds. No palpable organomegaly. Surgical wound closed with dressing in place, surrounding tenderness as expected MUSCULOSKELETAL: No joint swelling or deformity. EXTREMITIES: No cyanosis, clubbing, or pedal edema. NEUROLOGICAL: Gross neurological examination did not reveal any focal deficits. SKIN: No rashes. no petechiae. - Labs CBC & Chem 7: 02/23/23 07:26 02/23/23 07: Labs: Abnormal Lab Results - Last 24 Hours (Table) 02/23/23 02/23/23 02/23/23 Range/Units 07:26 07: 11:28 RBC 3.08 L (4.40-5.60) X 10*6/uL Hgb 9.0 L (13.0-17.0) d/dL Hct 27.9 L (39.6-50.0) % RDW 16.5 H (11.5-14.5) % Plt Count 138 L (140-440) X 10*3/uL Lymphocytes # 0.81 L (0.90-5.00) X 10*3/uL BUN/Creatinine Ratio 20.58 H (12.00-20.00) Ratio Glucose 136 H (70-110) mg/dL POC Glucose (mg/dL) 187 H (70-110) mg/dL Calcium 8.0 L (8.7-10.3) mg/dL Total Protein 5.0 L (6.2-8.2) d/dL Albumin 3.1 L (3.8-4.9) d/dL 02/23/23 02/23/23 02/24/23 Range/Units 16:29 20:57 06:05 RBC (4.40-5.60) X 10*6/uL Hgb (13.0-17.0) d/dL Hct (39.6-50.0) % RDW (11.5-14.5) % Plt Count (140-440) X 10*3/uL Lymphocytes # (0.90-5.00) X 10*3/uL BUN/Creatinine Ratio (12.00-20.00) Ratio Glucose (70-110) mg/dL POC Glucose (mg/dL) 226 H 171 H 143 H (70-110) mg/dL Calcium (8.7-10.3) mg/dL Total Protein (6.2-8.2) d/dL Albumin (3.8-4.9) d/dL Microbiology - Last 24 Hours (Table) 02/21/23 10:08 Blood Culture - Preliminary Blood 02/20/23 13:32 Blood Culture - Preliminary Blood Assessment and Plan Assessment: Bladder tumor with perforation status post cystoscopy with exploratory laparot keyona and excision of urinary bladder tumor and repair of perforation on 02/19.biopsy showing Superficial invasive high-grade urethral carcinoma Severe anemia secondary to above Acute kidney injury, mild Acute urinary tract infection thick aortic valve with negative blood culture so far altered mental status, secondary to toxic/metabolic encephalopathy Diabetes mellitus Hypertension Hyperlipidemia History of osteoarthritis Hypothyroidism Plan: Continue with cefepime Continue with Bella catheter with continuous irrigation Urology consult is appreciated Follow-up urinary bladder pathology results Cartilage team sign of the case Urologist and general surgery and nephrology consult the case as well Labs and medication were reviewed.. Continue same treatment. Continue with symptomatic treatment. Resume home medication. Monitor lytes and vitals. DVT and GI prophylaxis. Further recommendations depends on the clinical course of the patient DVT prophylaxis: no Subcutaneous heparin. 4 severe anemia and hematuria GI Prophylaxis: Pepcid PT/OT: Pending Prognosis is guarded
[2023-02-24 11:18] LABS: Glucose,Whole Blood 145 mg/dL (70-110)
[2023-02-24] MEDS: MULTIVITAMINS, THERA 1 EACH TAB PO SCH (11:55)
[2023-02-24] MEDS: THIAMINE 100 MG TAB PO SCH (11:55)
[2023-02-24] MEDS: FOLIC ACID 1 MG TAB PO SCH (11:55)
--- NOTE | 2023-02-24 11:57 | P.PN ---
Subjective Progress Note Date: 02/24/23 This is a 77-year-old male patient with a known history of benign prostatic hyperplasia, hypertension, hyperlipidemia, coronary artery disease with previous stent placements, diabetes mellitus, gastroesophageal reflux disease. He presented here to the emergency room on 02/18/2023 with complaints of difficulty in urination and blood in his urine. He was having suprapubic pain and difficulty making any urine. Ultrasound of the bladder revealed a mass or debris-filled urinary bladder. Bilateral renal cyst. Computed tomography scan of the abdomen and pelvis revealed a large heterogenous-appearing urinary bladder with minimal contrast present on delayed images. Urinary bladder appears to be filled with debris. Polypoid mass along the anterior lateral left urinary bladder was not excluded. On 02/19/2023 had undergone a cystoscopy with evacuation of clots, exploratory laparotomy, open excision of bladder tumor and repair of bladder laceration. A suprapubic catheter was placed. Late last night and early this morning the patient developed confusion and agitation. He was having rhonchorous respirations as well. He was subsequently transferred to the intensive care unit and placed on BiPAP 10/5 on 30% FiO2. His restlessness and confusion required Precedex infusion currently at 0.4 mcg/kg per hour. Chest x-ray reveals chronic changes without evidence for acute pulmonary disease. He is more calm and cooperative. He will be transitioned to nasal cannula. Continuous bladder irrigation is present. Heme no hematuria noted in urine output. He has normal saline at 75 ML's per hour. Antibiotics in the form of cefazolin. White count 8.8. Hemoglobin 7.6. Platelets 135. Arterial blood gases on 40% FiO2 had revealed a PaO2 of 113, pCO2 47, pH 7.25. Sodium 141. Potassium 5.9. Bicarb 27. BUN 39. Creatinine 2.07. Glucose 141. Lactic acid 4.0. The patient is seen today 02/21/2023 in follow-up in the intensive care unit. He is currently sitting up in bed. Awake and alert in no acute distress. He is having episodes of confusion. 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 Currently on 2 L/m per nasal cannula. He continues with continuous bladder irrigation. No significant clot noted. White count 6.1. Hemoglobin 8.0. Platelets 143. Sodium 139. Potassium 4.6. Bicarb 25. BUN 34. Creatinine 1.52. Glucose 136. He has normal saline at 75 ML's per hour. Echocardiogram revealed preserved left ventricular systolic function with ejec tion fraction 55-60%. There is some thickening of the aortic valve leaflet vegetation cannot be excluded. He remains on cefepime. NicoDerm patch in place. He did undergo EGD today which revealed mild antral gastritis. No evidence of ischemic stomach. Progress note dated 02/22/2023.The patient is seen today on the general medical floor, room 451. The patient's currently on 2 L of oxygen. He is receiving saline at 75 mL an hour. The patient apparently has been misbehaving, and has a sitter at the bedside. Apparently he has spit at the sitter. Labs today include a white count of 6.59, hemoglobin 6.4, hematocrit 20.6, and a platelet count of 137,000. Sodium 142, potassium 4, chlorides 111, CO2 23, BUN 26, and creatinine 1.2. 2 units of packed red blood cells were ordered, but not yet given. On today's evaluation of 02/23/2023, the patient is resting comfortably in bed and the patient is currently on 2 L of oxygen by nasal cannula. Notices signs of any significant respiratory distress. No hematuria. Denies having any abdominal pain or abdominal distention. He did have blood loss anemia with drop in hemoglobin down to 6.4 and the patient underwent an EGD that showed evidence of gastritis. He received a total of 2 units of packed RBC and a follow-up hemoglobin from today is up to 9.0. Platelet count is at 138. BUN is at 24 with a creatinine of 1.20 sodium level is at 143. He has no issues with pain. Dilaudid to be discontinued. Noted the patient has undergone cystoscopy and expiratory laparotomy and excision of a recurrent bladder tumor and repair of a bladder perforation and this was done on 02/19/2023 and the patient is postop day #4. Is also known to have coronary artery disease, hypertension, BPH, hyperlipidemia, and diabetes mellitus. On today's evaluation of 02/24/2023, the patient is on room air oxygen and the patient is resting comfortably in bed. He is probably catheter and the Bella catheter and the patient is not having any evidence of hematuria. Bladder irrigation has been discontinued. Hemoglobin is stable from yesterday at 9.0. The patient has also demonstrated from the renal function the creatinine is down to 1.2 from yesterday. He is postop day #5 and the patient underwent cystoscopu , exploratory laparoscopy and resection of a bladder tumor and repair of the bladder perforation. He is swallowing. He looks to be somewhat lethargic and sleepy. No other significant issues over the past 24 hours. Objective - Vital Signs Vital signs: Vital Signs Temp 98.9 F 02/24/23 06:51 Pulse 68 02/24/23 06:51 Resp 16 02/24/23 06:51 BP 188/78 02/24/23 06:51 Pulse Ox 95 02/24/23 08:27 FiO2 40 02/20/23 08:00 Intake & Output 02/23/23 02/24/23 02/24/23 18:59 06:59 18:59 Intake Total 480 Output Total 400 1200 100 Balance 80 -1200 -100 Intake: Oral 480 Output: Urine 400 1200 100 Suprapubic 100 Other: Voiding Method Indwelling Catheter Indwelling Catheter # Bowel Movements 1 - Exam No acute distress, confused, currently on room air oxygen HEENT examination is grossly unremarkable. Neck supple. Full range of motion. No adenopathy thyromegaly or neck vein distention. Cardiovascular examination reveals regular rhythm rate. S1-S2 normal. No S3 or S4. No discernible murmur noted. Lungs reveal mostly clear breath sounds. Scattered mild rhonchi noted. No wheezes or crackles. Abdomen soft bowel sounds are heard. No masses or tenderness. The patient is morbidly catheter in place in addition to a Bella catheter. Abdomen is nondistended. Extremities are intact. No cyanosis clubbing or edema. Skin is without rash or lesion. Neurologic examination reveals patient to be confused. - Labs CBC & Chem 7: 02/23/23 07:02/23/23 07: Labs: Abnormal Lab Results - Last 24 Hours (Table) 02/23/23 02/23/23 02/23/23 Range/Units 07: 07: 11:28 RBC 3.08 L (4.40-5.60) X 10*6/uL Hgb 9.0 L (13.0-17.0) d/dL Hct 27.9 L (39.6-50.0) % RDW 16.5 H (11.5-14.5) % Plt Count 138 L (140-440) X 10*3/uL Lymphocytes # 0.81 L (0.90-5.00) X 10*3/uL BUN/Creatinine Ratio 20.58 H (12.00-20.00) Ratio Glucose 136 H (70-110) mg/dL POC Glucose (mg/dL) 187 H (70-110) mg/dL Calcium 8.0 L (8.7-10.3) mg/dL Total Protein 5.0 L (6.2-8.2) d/dL Albumin 3.1 L (3.8-4.9) d/dL 02/23/23 02/23/23 02/24/23 Range/Units 16:29 20:57 06:05 RBC (4.40-5.60) X 10*6/uL Hgb (13.0-17.0) d/dL Hct (39.6-50.0) % RDW (11.5-14.5) % Plt Count (140-440) X 10*3/uL Lymphocytes # (0.90-5.00) X 10*3/uL BUN/Creatinine Ratio (12.00-20.00) Ratio Glucose (70-110) mg/dL POC Glucose (mg/dL) 226 H 171 H 143 H (70-110) mg/dL Calcium (8.7-10.3) mg/dL Total Protein (6.2-8.2) d/dL Albumin (3.8-4.9) d/dL Microbiology - Last 24 Hours (Table) 02/21/23 10:08 Blood Culture - Preliminary Blood 02/20/23 13:32 Blood Culture - Preliminary Blood Assessment and Plan Plan: Bladder tumor post extensive laparotomy and open surgical resection and repair of a bladder laceration. The patient is postop day # 5 Hematuria and urinary retention secondary to a large heterogenous-appearing urinary bladder filled with debris. Polypoid mass on the anterior left lateral urinary bladder not excluded. Status post cystoscopy and evacuation of clots, exploratory laparotomy, open excision of bladder tumor area. Bladder laceration. Patient currently has a markedly catheter in place. Over 500 mL of clot removed from bladder. Extraperitoneal bladder rupture was identified at the left bladder dome and repaired. An anterior bladder dome tumor was identified and excised. The patient is stable for now and showed no evidence of any hematuria Blood loss Anemia secondary to above. The patient received a total of 2 units of packed RBC and hemoglobin currently is up to 9 from yesterday Acute renal failure, improving and a creatinine is normalizing Altered mental status with agitation and confusion, recovered Acute hypoxemic respiratory failure requiring BiPAP support, recovered and the patient is currently on room air oxygen Coronary artery disease with previous stent placements. History of benign prostatic hyperplasia. Hypertension. Hyperlipidemia. Diabetes mellitus. History of chronic tobacco dependence. Plan: Patient is still recovering from his surgery and the patient is currently postop day # 5 Acute hypoxic respiratory failure is improved and the patient is currently on oxygen Anemia stable and the patient's hemoglobin is up to 9 Renal function continues to improve Continue broad-spectrum antibiotics with IV cefepime Suprapubic catheter in place We'll continue to follow
--- NOTE | 2023-02-24 12:48 | P.PN ---
Subjective Patient is seen for follow-up for acute kidney injury. Renal function has improved. Serum creatinine staying at about 1.2 mg/dL. Patient is in a bedside chair today. He is awake. Answering questions appropriately. Tolerating oral intake. Objective - Vital Signs Vital signs: Vital Signs Temp 98.9 F 02/24/23 06:51 Pulse 68 02/24/23 06:51 Resp 16 02/24/23 06:51 BP 188/78 02/24/23 06:51 Pulse Ox 95 02/24/23 08:27 FiO2 40 02/20/23 08:00 Intake & Output 02/23/23 02/24/23 02/24/23 18:59 06:59 18:59 Intake Total 480 700 Output Total 400 1200 100 Balance 80 -1200 600 Intake: IV 100 Cefepime 2 gm In Sodium 100 Chloride 0.9% 100 ml @ 25 mls/hr IVPB Q12H [facility] Rx# :[id number] Intake, IV Titration 600 Amount Sodium Chloride 0.9% 1, 600 000 ml @ 75 mls/hr IV . [id number] [facility] Rx#:[id number] Oral 480 Output: Urine 400 1200 100 Suprapubic 100 Other: Voiding Method Indwelling Catheter Indwelling Catheter Indwelling Catheter # Bowel Movements 1 - Exam Sleeping but arousable Examination of the heart S1 and S2 Examination of the lungs bilateral breath sounds are heard Abdomen is soft nontender Examination of lower extremity shows no significant edema - Labs CBC & Chem 7: 02/23/23 07:26 02/23/23 07:26 Labs: Abnormal Lab Results - Last 24 Hours (Table) 02/23/23 02/23/23 02/23/23 Range/Units 07:26 07:26 16:29 RBC 3.08 L (4.40-5.60) X 10*6/uL Hgb 9.0 L (13.0-17.0) d/dL Hct 27.9 L (39.6-50.0) % RDW 16.5 H (11.5-14.5) % Plt Count 138 L (140-440) X 10*3/uL Lymphocytes # 0.81 L (0.90-5.00) X 10*3/uL BUN/Creatinine Ratio 20.58 H (12.00-20.00) Ratio Glucose 136 H (70-110) mg/dL POC Glucose (mg/dL) 226 H (70-110) mg/dL Calcium 8.0 L (8.7-10.3) mg/dL Total Protein 5.0 L (6.2-8.2) d/dL Albumin 3.1 L (3.8-4.9) d/dL 02/23/23 02/24/23 02/24/23 Range/Units 20:57 06:05 11:16 RBC (4.40-5.60) X 10*6/uL Hgb (13.0-17.0) d/dL Hct (39.6-50.0) % RDW (11.5-14.5) % Plt Count (140-440) X 10*3/uL Lymphocytes # (0.90-5.00) X 10*3/uL BUN/Creatinine Ratio (12.00-20.00) Ratio Glucose (70-110) mg/dL POC Glucose (mg/dL) 171 H 143 H 145 H (70-110) mg/dL Calcium (8.7-10.3) mg/dL Total Protein (6.2-8.2) d/dL Albumin (3.8-4.9) d/dL Microbiology - Last 24 Hours (Table) 02/21/23 10:08 Blood Culture - Preliminary Blood 02/20/23 13:32 Blood Culture - Preliminary Blood Assessment and Plan Assessment: #1 acute kidney injury secondary to hemodynamic ATN. -Baseline creatinine 0.9 MG per DL. #2 bladder hematoma with rupture status post repair. #3 hematuria secondary to bladder rupture and surgery #4 hypertension #5 anemia secondary to acute blood loss. Plan: May continue with IV fluids
[2023-02-24] MEDS: SODIUM CHLORIDE 0.9% 1,000 ML IV SCH (15:27)
--- NOTE | 2023-02-24 15:43 | P.PN ---
Subjective Progress Note Date: 02/23/23 Principal diagnosis: Postop fever Patient is a 77-year-old male presenting to the hospital for evaluation of lower abdominal pain that started the night before he presented to the hospital the patient also complaining of blood in his urine, patient was noticed to have ruptured bladder and the patient is status post expiratory laparotomy and repair of the bladder rupture patient did spike a fever postoperatively. On today's evaluation that is 02/23/2023, the patient continues to be afebrile, the patient is breathing comfortably on 2 L nasal cannula oxygen, the patient denies chest pain shortness of breath or cough , the patient denies having abdominal pain no nausea vomiting or diarrhea has been reported Patient did have white count 8.07 and a hemoglobin of 9.0, creatinine is 1.2 Objective - Vital Signs Vital signs: Vital Signs Temp 99.1 F 02/23/23 06:52 Pulse 70 02/23/23 06:52 Resp 16 02/23/23 06:52 BP 166/74 02/23/23 06:52 Pulse Ox 94 L 02/23/23 06:52 FiO2 40 02/20/23 08:00 Intake & Output 02/22/23 02/23/23 02/23/23 18:59 06:59 18:59 Intake Total 310 280 Output Total 800 1500 Balance -490 -1220 Intake: Blood Product 310 280 Rc As-1 Unit 310 [id number] Rc Pheresis As-3 Unit 0 280 [id number] Output: Urine 800 1500 Other: Voiding Method Indwelling Catheter Indwelling Catheter Indwelling Catheter # Bowel Movements 0 - Exam GENERAL DESCRIPTION: An elderly male lying in bed in no distress RESPIRATORY SYSTEM: Unlabored breathing , decreased breath sounds at bases HEART: S1 S2 regular rate and rhythm , ABDOMEN: Soft , no tenderness EXTREMITIES: No edema feet - Labs CBC & Chem 7: 02/23/23 07:26 02/23/23 07:26 Labs: Abnormal Lab Results - Last 24 Hours (Table) 02/22/23 02/22/23 02/22/23 Range/Units 12:03 16:20 21:08 POC Glucose (mg/dL) 181 H 158 H (70-110) mg/dL Crossmatch See Detail 02/23/23 02/23/23 Range/Units 05:52 11:28 POC Glucose (mg/dL) 138 H 187 H (70-110) mg/dL Crossmatch Microbiology - Last 24 Hours (Table) 02/21/23 10:08 Blood Culture - Preliminary Blood 02/20/23 13:32 Blood Culture - Preliminary Blood Assessment and Plan (1) Fever Current Visit: Yes Status: Acute Code(s): R50.9 - FEVER, UNSPECIFIED SNOMED Code(s): 300468543 (2) Urinary tract infection Current Visit: Yes Status: Acute Code(s): N39.0 - URINARY TRACT INFECTION, SITE NOT SPECIFIED SNOMED Code(s): 45065186 Plan: 1patient with sepsis in this patient was in the hospital abdominal pain patient has been diagnosed with a ruptured bladder status post arthrotomy and operative repair patient with a fever elevated white count tachycardia source likely urinary and will need to cover for the enteric gram-negative to be the likely pathogen 2- patient did have a positive UA blood and urine as well as blood cultures are so far negative 3Patient fever pattern has improved and the patient white count is normal , patient to continue the patient on cefepime 2 g every 8 hours and continue supportive care Dictation was produced using [employer] dictation software. please excuse any grammatical, word or spelling errors. Time with Patient: Less than 30
--- NOTE | 2023-02-24 15:44 | P.PN ---
Subjective Progress Note Date: 02/24/23 Principal diagnosis: Postop fever Patient is a 77-year-old male presenting to the hospital for evaluation of lower abdominal pain that started the night before he presented to the hospital the patient also complaining of blood in his urine, patient was noticed to have ruptured bladder and the patient is status post expiratory laparotomy and repair of the bladder rupture patient did spike a fever postoperatively. On today's evaluation that is 02/24/2023, the patient remains to be afebrile, the patient is breathing comfortably on 2 L nasal cannula oxygen, the patient denies chest pain shortness of breath and no significant cough , the patient denies having abdominal pain no nausea vomiting or diarrhea has been reported Patient did have white count 8.07 and a hemoglobin of 9.0, creatinine is 1.2 as of 02/23/2023 and no labs drawn today Objective - Vital Signs Vital signs: Vital Signs Temp 98.9 F 02/24/23 06:51 Pulse 68 02/24/23 06:51 Resp 16 02/24/23 06:51 BP 188/78 02/24/23 06:51 Pulse Ox 95 02/24/23 08:27 FiO2 40 02/20/23 08:00 Intake & Output 02/23/23 02/24/23 02/24/23 18:59 06:59 18:59 Intake Total 480 700 Output Total 400 1200 100 Balance 80 -1200 600 Intake: IV 100 Cefepime 2 gm In Sodium 100 Chloride 0.9% 100 ml @ 25 mls/hr IVPB Q12H [facility] Rx# :[id number] Intake, IV Titration 600 Amount Sodium Chloride 0.9% 1, 600 000 ml @ 75 mls/hr IV . [id number] [facility] Rx#:[id number] Oral 480 Output: Urine 400 1200 100 Suprapubic 100 Other: Voiding Method Indwelling Catheter Indwelling Catheter Indwelling Catheter # Bowel Movements 1 - Exam GENERAL DESCRIPTION: An elderly male lying in bed in no distress RESPIRATORY SYSTEM: Unlabored breathing , decreased breath sounds at bases HEART: S1 S2 regular rate and rhythm , ABDOMEN: Soft , no tenderness EXTREMITIES: No edema feet - Labs CBC & Chem 7: 02/23/23 07:26 02/23/23 07:26 Labs: Abnormal Lab Results - Last 24 Hours (Table) 02/23/23 02/23/23 02/23/23 Range/Units 07:26 07:26 16:29 RBC 3.08 L (4.40-5.60) X 10*6/uL Hgb 9.0 L (13.0-17.0) d/dL Hct 27.9 L (39.6-50.0) % RDW 16.5 H (11.5-14.5) % Plt Count 138 L (140-440) X 10*3/uL Lymphocytes # 0.81 L (0.90-5.00) X 10*3/uL BUN/Creatinine Ratio 20.58 H (12.00-20.00) Ratio Glucose 136 H (70-110) mg/dL POC Glucose (mg/dL) 226 H (70-110) mg/dL Calcium 8.0 L (8.7-10.3) mg/dL Total Protein 5.0 L (6.2-8.2) d/dL Albumin 3.1 L (3.8-4.9) d/dL 02/23/23 02/24/23 02/24/23 Range/Units 20:57 06:05 11:16 RBC (4.40-5.60) X 10*6/uL Hgb (13.0-17.0) d/dL Hct (39.6-50.0) % RDW (11.5-14.5) % Plt Count (140-440) X 10*3/uL Lymphocytes # (0.90-5.00) X 10*3/uL BUN/Creatinine Ratio (12.00-20.00) Ratio Glucose (70-110) mg/dL POC Glucose (mg/dL) 171 H 143 H 145 H (70-110) mg/dL Calcium (8.7-10.3) mg/dL Total Protein (6.2-8.2) d/dL Albumin (3.8-4.9) d/dL Microbiology - Last 24 Hours (Table) 02/21/23 10:08 Blood Culture - Preliminary Blood 02/20/23 13:32 Blood Culture - Preliminary Blood Assessment and Plan (1) Fever Current Visit: Yes Status: Acute Code(s): R50.9 - FEVER, UNSPECIFIED S NOMED Code(s): 158419887 (2) Urinary tract infection Current Visit: Yes Status: Acute Code(s): N39.0 - URINARY TRACT INFECTION, SITE NOT SPECIFIED SNOMED Code(s): 34093635 Plan: 1patient with sepsis in this patient was in the hospital abdominal pain patient has been diagnosed with a ruptured bladder status post arthrotomy and operative repair patient with a fever elevated white count tachycardia source likely urinary and will need to cover for the enteric gram-negative to be the likely pathogen 2- patient did have a positive UA blood and urine as well as blood cultures are so far negative 3Patient fever pattern has improved and the patient white count is normal , patient to continue the patient on cefepime 2 g every 8 hours while inpatient and will consider short course of oral Ceftin on discharge Family the bedside questions concerned were answered Dictation was produced using [employer] dictation software. please excuse any grammatical, word or spelling errors. Time with Patient: Less than 30
[2023-02-24 16:21] LABS: Glucose,Whole Blood 186 mg/dL (70-110)
[2023-02-24] MEDS: TAMSULOSIN 0.4 MG CAP.ER.24H PO SCH (20:01)
[2023-02-24] MEDS: ATORVASTATIN 40 MG TAB PO SCH (20:01)
[2023-02-24] MEDS: AMITRIPTYLINE HCL 10 MG TAB PO SCH (20:02)
[2023-02-24 20:48] LABS: Glucose,Whole Blood 165 mg/dL (70-110)
--- NOTE | 2023-02-24 21:45 | P.PN ---
Subjective Progress Note Date: 02/24/23 Principal diagnosis: POD #5, s/p evacuation of clot and repair of bladder rupture The patient underwent exploratory laparotomy with repair of bladder rupture. A bladder tumor was excised. His condition is stable. He is tolerating diet. Objective - Vital Signs Vital signs: Vital Signs Temp 98.9 F 02/24/23 19:54 Pulse 73 02/24/23 19:54 Resp 16 02/24/23 19:54 BP 178/74 02/24/23 19:54 Pulse Ox 91 L 02/24/23 19:54 FiO2 40 02/20/23 08:00 Intake & Output 02/24/23 02/24/23 02/25/23 06:59 18:59 06:59 Intake Total 1540 Output Total 1200 200 Balance -1200 1340 Intake: IV 100 Cefepime 2 gm In Sodium 100 Chloride 0.9% 100 ml @ 25 mls/hr IVPB Q12H [facility] Rx# :[id number] Intake, IV Titration 600 Amount Sodium Chloride 0.9% 1, 600 000 ml @ 75 mls/hr IV . [id number] [facility] Rx#:[id number] Oral 840 Output: Urine 1200 200 Suprapubic 100 Other: Voiding Method Indwelling Catheter Indwelling Catheter Indwelling Catheter # Bowel Movements 1 - Constitutional General appearance: Present: average body habitus, no acute distress - Gastrointestinal Gastrointestinal Comment(s): Soft, non-distended. Incision clean, dry, and intact. The SP tube is draining clear yellow urine. - Psychiatric Psychiatric: Present: A&O x's 3 - Labs CBC & Chem 7: 02/23/23 07:26 02/23/23 07:26 Labs: Abnormal Lab Results - Last 24 Hours (Table) 02/24/23 02/24/23 02/24/23 Range/Units 06:05 11:16 16:19 POC Glucose (mg/dL) 143 H 145 H 186 H (70-110) mg/dL 02/24/23 Range/Units 20:46 POC Glucose (mg/dL) 165 H (70-110) mg/dL Microbiology - Last 24 Hours (Table) 02/21/23 10:08 Blood Culture - Preliminary Blood 02/20/23 13:32 Blood Culture - Preliminary Blood Assessment and Plan Assessment: Patient's condition continues to improve. 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 (1) Gross hematuria Current Visit: Yes Status: Acute Code(s): R31.0 - GROSS HEMATURIA SNOMED Code(s): 957683523 (2) Urinary retention Current Visit: Yes Status: Acute Code(s): R33.9 - RETENTION OF URINE, UNSPECIFIED SNOMED Code(s): 351507270 (3) Prostate nodule Current Visit: Yes Status: Acute Code(s): N40.2 - NODULAR PROSTATE WITHOUT LOWER URINARY TRACT SYMPTOMS SNOMED Code(s): 089359699544244 Plan: The patient is urologically stable. The Bella catheter will remain plugged, and the suprapubic tube will remain connected to gravity drainage. Surgical flaquita will be removed later this week or early next week. The catheters will remain in place for 2 weeks. All visible cancer was excised at the time of surgery. However, CIS cannot always be seen visually. The patient will likely be advised to receive intravesical BCG.
[2023-02-25] MEDS: CEFEPIME 2 GM in SODIUM CHLORIDE 0.9% 100 ML IVPB SCH ×3 (04:38→23:30)
[2023-02-25] MEDS: SODIUM CHLORIDE 0.9% 1,000 ML IV SCH ×2 (04:38→17:28)
[2023-02-25 06:03] LABS: Glucose,Whole Blood 149 mg/dL (70-110)
[2023-02-25] MEDS: FINASTERIDE 5 MG TAB PO SCH (07:50)
[2023-02-25] MEDS: LORATADINE 10 MG TAB PO SCH (07:50)
[2023-02-25] MEDS: hydrALAZINE HCL 50 MG TAB PO SCH ×3 (07:50→19:46)
[2023-02-25] MEDS: GABAPENTIN 300 MG CAP PO SCH (07:50)
[2023-02-25] MEDS: atenoloL 50 MG TAB PO SCH ×2 (07:50→19:46)
[2023-02-25] MEDS: metFORMIN 500 MG TAB PO SCH ×2 (07:50→17:28)
[2023-02-25] MEDS: FLUTICASONE 50MCG/SPRAY NASAL 16GM EA NOSTRIL SCH ×2 (07:56→19:47)
[2023-02-25] MEDS: PANTOPRAZOLE 40 MG/10 ML VIAL IVP SCH ×2 (08:10→19:47)
[2023-02-25] MEDS: MULTIVITAMINS, THERA 1 EACH TAB PO SCH (11:18)
[2023-02-25] MEDS: THIAMINE 100 MG TAB PO SCH (11:18)
[2023-02-25] MEDS: FOLIC ACID 1 MG TAB PO SCH (11:18)
[2023-02-25 11:37] LABS: Glucose,Whole Blood 155 mg/dL (70-110)
[2023-02-25 12:40] LABS: African American GFR (CKD) 80 (>60 ml/min/1.73 sqM); Anion Gap 5 mmol/L; Blood Urea Nitrogen 17 mg/dL (9-20); Carbon Dioxide 25 mmol/L (22-30); Chloride 107 mmol/L (98-107); Glucose 146 mg/dL (74-99); Non-African American GFR(CKD) 69 (>60 ml/min/1.73 sqM); Potassium 3.8 mmol/L (3.5-5.1); Sodium 137 mmol/L (137-145)
--- NOTE | 2023-02-25 13:23 | P.PN ---
Subjective Patient is seen for follow-up for acute kidney injury. Renal function has improved. Serum creatinine staying at about 1.2 mg/dL. decreased to 1.0 today Patient is awake and comfortable Objective - Vital Signs Vital signs: Vital Signs Temp 98.2 F 02/25/23 07:28 Pulse 66 02/25/23 07:28 Resp 16 02/25/23 07:28 BP 129/70 02/25/23 09:04 Pulse Ox 94 L 02/25/23 07:28 FiO2 40 02/20/23 08:00 Intake & Output 02/24/23 02/25/23 02/25/23 18:59 06:59 18:59 Intake Total 1540 820 Output Total 200 1380 Balance 1340 -1380 820 Intake: IV 100 100 Cefepime 2 gm In Sodium 100 100 Chloride 0.9% 100 ml @ 25 mls/hr IVPB Q12H [facility] Rx# :[id number] Intake, IV Titration 600 600 Amount Sodium Chloride 0.9% 1, 600 600 000 ml @ 75 mls/hr IV . [id number] [facility] Rx#:[id number] Oral 840 120 Output: Urine 200 1380 Suprapubic 100 Other: Voiding Method Indwelling Catheter Indwelling Catheter Indwelling Catheter - Exam Sleeping but arousable Examination of the heart S1 and S2 Examination of the lungs bilateral breath sounds are heard Abdomen is soft nontender Examination of lower extremity shows no significant edema - Labs CBC & Chem 7: 02/23/23 07:26 02/25/23 11:43 Labs: Abnormal Lab Results - Last 24 Hours (Table) 02/24/23 02/24/23 02/25/23 Range/Units 16:19 20:46 06:01 Glucose (74-99) mg/dL POC Glucose (mg/dL) 186 H 165 H 149 H (70-110) mg/dL Calcium (8.4-10.2) mg/dL 02/25/23 02/25/23 Range/Units 11:35 11:43 Glucose 146 H (74-99) mg/dL POC Glucose (mg/dL) 155 H (70-110) mg/dL Calcium 8.0 L (8.4-10.2) mg/dL Microbiology - Last 24 Hours (Table) 02/21/23 10:08 Blood Culture - Preliminary Blood Assessment and Plan Assessment: #1 acute kidney injury secondary to hemodynamic ATN. -Baseline creatinine 0.9 MG per DL. #2 bladder hematoma with rupture status post repair. #3 hematuria secondary to bladder rupture and surgery #4 hypertension #5 anemia secondary to acute blood loss. Plan: Encourage increased oral intake Stable for discharge from nephrology standpoint Follow-up with urology post discharge.
--- NOTE | 2023-02-25 13:48 | P.PN ---
Subjective Progress Note Date: 02/25/23 This is a 77-year-old male patient with a known history of benign prostatic hyperplasia, hypertension, hyperlipidemia, coronary artery disease with previous stent placements, diabetes mellitus, gastroesophageal reflux disease. He presented here to the emergency room on 02/18/2023 with complaints of difficulty in urination and blood in his urine. He was having suprapubic pain and difficulty making any urine. Ultrasound of the bladder revealed a mass or debris-filled urinary bladder. Bilateral renal cyst. Computed tomography scan of the abdomen and pelvis revealed a large heterogenous-appearing urinary bladder with minimal contrast present on delayed images. Urinary bladder appears to be filled with debris. Polypoid mass along the anterior lateral left urinary bladder was not excluded. On 02/19/2023 had undergone a cystoscopy with evacuation of clots, exploratory laparotomy, open excision of bladder tumor and repair of bladder laceration. A suprapubic catheter was placed. Late last night and early this morning the patient developed confusion and agitation. He was having rhonchorous respirations as well. He was subsequently transferred to the intensive care unit and placed on BiPAP 10/5 on 30% FiO2. His restlessness and confusion required Precedex infusion currently at 0.4 mcg/kg per hour. Chest x-ray reveals chronic changes without evidence for acute pulmonary disease. He is more calm and cooperative. He will be transitioned to nasal cannula. Continuous bladder irrigation is present. Heme no hematuria noted in urine output. He has normal saline at 75 ML's per hour. Antibiotics in the form of cefazolin. White count 8.8. Hemoglobin 7.6. Platelets 135. Arterial blood gases on 40% FiO2 had revealed a PaO2 of 113, pCO2 47, pH 7.25. Sodium 141. Potassium 5.9. Bicarb 27. BUN 39. Creatinine 2.07. Glucose 141. Lactic acid 4.0. The patient is seen today 02/21/2023 in follow-up in the intensive care unit. He is currently sitting up in bed. Awake and alert in no acute distress. He is having episodes of confusion. He has been off the Precedex. assignment manager at the bedside. Currently on 2 L/m per nasal cannula. He continues with continuous bladder irrigation. No significant clot noted. White count 6.1. Hemoglobin 8.0. Platelets 143. Sodium 139. Potassium 4.6. Bicarb 25. BUN 34. Creatinine 1.52. Glucose 136. He has normal saline at 75 ML's per hour. Echocardiogram revealed preserved left ventricular systolic function with ejec tion fraction 55-60%. There is some thickening of the aortic valve leaflet vegetation cannot be excluded. He remains on cefepime. NicoDerm patch in place. He did undergo EGD today which revealed mild antral gastritis. No evidence of ischemic stomach. Progress note dated 02/22/2023.The patient is seen today on the general medical floor, room 451. The patient's currently on 2 L of oxygen. He is receiving saline at 75 mL an hour. The patient apparently has been misbehaving, and has a sitter at the bedside. Apparently he has spit at the sitter. Labs today include a white count of 6.59, hemoglobin 6.4, hematocrit 20.6, and a platelet count of 137,000. Sodium 142, potassium 4, chlorides 111, CO2 23, BUN 26, and creatinine 1.2. 2 units of packed red blood cells were ordered, but not yet given. On today's evaluation of 02/23/2023, the patient is resting comfortably in bed and the patient is currently on 2 L of oxygen by nasal cannula. Notices signs of any significant respiratory distress. No hematuria. Denies having any abdominal pain or abdominal distention. He did have blood loss anemia with drop in hemoglobin down to 6.4 and the patient underwent an EGD that showed evidence of gastritis. He received a total of 2 units of packed RBC and a follow-up hemoglobin from today is up to 9.0. Platelet count is at 138. BUN is at 24 with a creatinine of 1.20 sodium level is at 143. He has no issues with pain. Dilaudid to be discontinued. Noted the patient has undergone cystoscopy and expiratory laparotomy and excision of a recurrent bladder tumor and repair of a bladder perforation and this was done on 02/19/2023 and the patient is postop day #4. Is also known to have coronary artery disease, hypertension, BPH, hyperlipidemia, and diabetes mellitus. On today's evaluation of 02/24/2023, the patient is on room air oxygen and the patient is resting comfortably in bed. He is probably catheter and the Bella catheter and the patient is not having any evidence of hematuria. Bladder irrigation has been discontinued. Hemoglobin is stable from yesterday at 9.0. The patient has also demonstrated from the renal function the creatinine is down to 1.2 from yesterday. He is postop day #5 and the patient underwent cystoscopu , exploratory laparoscopy and resection of a bladder tumor and repair of the bladder perforation. He is swallowing. He looks to be somewhat lethargic and sleepy. No other significant issues over the past 24 hours. On 02/25/2023, the patient is doing well and the patient is on room air oxygen. No complaints. No bleeding. He is weak and I'm not sure is going to be able to ambulate independently. His Bella catheter is in place. The suprapubic catheter is in place. The patient is not having any issues tolerating his diet. Renal function stable with a BUN of 17 and a creatinine of 1. Sodium is at 137. The patient is using the incentive spirometer. The patient is currently on room air oxygen. He remains on IV cefepime. Objective - Vital Signs Vital signs: Vital Signs Temp 98.2 F 02/25/23 07:28 Pulse 66 02/25/23 07:28 Resp 16 02/25/23 07:28 BP 129/70 02/25/23 09:04 Pulse Ox 94 L 02/25/23 07:28 FiO2 40 02/20/23 08:00 Intake & Output 02/24/23 02/25/23 02/25/23 18:59 06:59 18:59 Intake Total 1540 820 Output Total 200 1380 Balance 1340 -1380 820 Intake: IV 100 100 Cefepime 2 gm In Sodium 100 100 Chloride 0.9% 100 ml @ 25 mls/hr IVPB Q12H [facility] Rx# :[id number] Intake, IV Titration 600 600 Amount Sodium Chloride 0.9% 1, 600 600 000 ml @ 75 mls/hr IV . [id number] [facility] Rx#:[id number] Oral 840 120 Output: Urine 200 1380 Suprapubic 100 Other: Voiding Method Indwelling Catheter Indwelling Catheter Indwelling Catheter - Exam No acute distress, confused, currently on room air oxygen HEENT examination is grossly unremarkable. Neck supple. Full range of motion. No adenopathy thyromegaly or neck vein distention. Cardiovascular examination reveals regular rhythm rate. S1-S2 normal. No S3 or S4. No discernible murmur noted. Lungs reveal mostly clear breath sounds. Scattered mild rhonchi noted. No wheezes or crackles. Abdomen soft bowel sounds are heard. No masses or tenderness. The patient is morbidly catheter in place in addition to a Bella catheter. Abdomen is nondistended. Extremities are intact. No cyanosis clubbing or edema. Skin is without rash or lesion. Neurologic examination reveals patient to be confused. - Labs CBC & Chem 7: 02/23/23 07:26 02/25/23 11:43 Labs: Abnormal Lab Results - Last 24 Hours (Table) 02/24/23 02/24/23 02/25/23 Range/Units 16:19 20:46 06:01 Glucose (74-99) mg/dL POC Glucose (mg/dL) 186 H 165 H 149 H (70-110) mg/dL Calcium (8.4-10.2) mg/dL 02/25/23 02/25/23 Range/Units 11:35 11:43 Glucose 146 H (74-99) mg/dL POC Glucose (mg/dL) 155 H (70-110) mg/dL Calcium 8.0 L (8.4-10.2) mg/dL Microbiology - Last 24 Hours (Table) 02/21/23 10:08 Blood Culture - Preliminary Blood Assessment and Plan Plan: Bladder tumor post extensive laparotomy and open surgical resection and repair of a bladder laceration. The patient is postop day # 6 Hematuria and urinary retention secondary to a large heterogenous-appearing urinary bladder filled with debris. Polypoid mass on the anterior left lateral urinary bladder not excluded. Status post cystoscopy and evacuation of clots, exploratory laparotomy, open excision of bladder tumor area. Bladder laceration. Patient currently has a markedly catheter in place. Over 500 mL of clot removed from bladder. Extraperitoneal bladder rupture was identified at the left bladder dome and repaired. An anterior bladder dome tumor was identified and excised. The patient is stable for now and showed no evidence of any hematuria Blood loss Anemia secondary to above. The patient received a total of 2 units of packed RBC and the last hemoglobin was up to 1.0. Acute renal failure, improving and a creatinine is normalizing Altered mental status with agitation and confusion, recovered, and the patient has normal mentation for now Acute hypoxemic respiratory failure requiring BiPAP support, recovered and the patient is currently on room air oxygen Coronary artery disease with previous stent placements. History of benign prostatic hyperplasia. Hypertension. Hyperlipidemia. Diabetes mellitus. History of chronic tobacco dependence. Plan: Patient is still recovering from his surgery and the patient is currently postop day # 6, he is weak and he may benefit from rehabilitation. We'll consult physical therapy. Acute hypoxic respiratory failure is improved and the patient is currently on oxygen Anemia stable and the patient's hemoglobin is up to 9 Renal function continues to improve Continue broad-spectrum antibiotics with IV cefepime Suprapubic catheter in place We'll continue to follow
[2023-02-25 16:43] LABS: Glucose,Whole Blood 150 mg/dL (70-110)
[2023-02-25] MEDS: ATORVASTATIN 40 MG TAB PO SCH (19:46)
[2023-02-25] MEDS: TAMSULOSIN 0.4 MG CAP.ER.24H PO SCH (19:47)
[2023-02-25] MEDS: AMITRIPTYLINE HCL 10 MG TAB PO SCH (19:47)
[2023-02-25 21:05] LABS: Glucose,Whole Blood 214 mg/dL (70-110)
[2023-02-26] MEDS: SODIUM CHLORIDE 0.9% 1,000 ML IV SCH ×2 (05:25→23:17)
[2023-02-26 06:20] LABS: Glucose,Whole Blood 148 mg/dL (70-110)
[2023-02-26] MEDS: THIAMINE 100 MG TAB PO SCH (08:02)
[2023-02-26] MEDS: MULTIVITAMINS, THERA 1 EACH TAB PO SCH (08:02)
[2023-02-26] MEDS: PANTOPRAZOLE 40 MG/10 ML VIAL IVP SCH ×2 (08:02→19:57)
[2023-02-26] MEDS: CEFEPIME 2 GM in SODIUM CHLORIDE 0.9% 100 ML IVPB SCH ×3 (08:02→23:03)
[2023-02-26] MEDS: FOLIC ACID 1 MG TAB PO SCH (08:03)
[2023-02-26] MEDS: hydrALAZINE HCL 50 MG TAB PO SCH ×3 (08:47→21:01)
[2023-02-26] MEDS: GABAPENTIN 300 MG CAP PO SCH (08:48)
[2023-02-26] MEDS: LORATADINE 10 MG TAB PO SCH (08:48)
[2023-02-26] MEDS: metFORMIN 500 MG TAB PO SCH ×2 (08:48→17:45)
[2023-02-26] MEDS: atenoloL 50 MG TAB PO SCH ×2 (08:48→19:57)
[2023-02-26] MEDS: FLUTICASONE 50MCG/SPRAY NASAL 16GM EA NOSTRIL SCH ×2 (08:48→21:01)
[2023-02-26] MEDS: FINASTERIDE 5 MG TAB PO SCH (08:48)
--- NOTE | 2023-02-26 10:07 | P.PN ---
Subjective This is a pleasant 77 years old male with past medical history of coronary artery disease, hypertension, hyperlipidemia, diabetes mellitus, GERD. Patient presents because urinary symptoms related to urinary bladder tumor with perforation status post cystoscopy and exploratory laparotomy and excision of the recurrent bladder tumor and repair of perforation on 02/19. Today is postop day #4. He still has Bella catheter with irrigation. His suprapubic catheter. Also patient Agitation confused at time and there is a sitter at bedside for safety 02/24/2023 Overall patient is improving and doing well Patient is hemodynamically stable, blood pressure on the high side, hydralazine 100 mg twice a day increased into 3 times a day. Blood pressure this morning was 188/78. Urologically patient is a stable, we recommend to keep suprapubic catheter with the drainage to gravity nephrology and Gen. surgery team signed off the case shoe worker consulted for placement Sitter can be discontinued as patient is calm. 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 Patient and at bedside, whom pt gave verbal consent to be informed as well, were informed both with the results of this above UB biopsy, also the need to follow-up with urologist and both of them agreed to see upon discharge for further treatment Objective - Vital Signs Vital signs: Vital Signs Temp 98.7 F 02/26/23 07:46 Pulse 68 02/26/23 07:46 Resp 17 02/26/23 07:46 BP 191/73 02/26/23 07:46 Pulse Ox 94 L 02/26/23 07:46 FiO2 40 02/20/23 08:00 Intake & Output 02/25/23 02/26/23 02/26/23 18:59 06:59 18:59 Intake Total 820 500 Output Total 1050 800 Balance -230 -800 500 Intake: IV 100 100 Cefepime 2 gm In Sodium 100 100 Chloride 0.9% 100 ml @ 25 mls/hr IVPB Q12H [facility] Rx# :[id number] Intake, IV Titration 600 400 Amount Sodium Chloride 0.9% 1, 600 400 000 ml @ 50 mls/hr IV . Q20H [facility] Rx#:[id number] Oral 120 Output: Urine 1050 800 Other: Voiding Method Indwelling Catheter Indwelling Catheter # Voids 1 - Exam -GENERAL: The patient is confused and lethargic, does not follow commands, not in any acute distress. Well developed, well nourished. HEENT: Pupils are round and equally reacting to light. EOMI. No scleral icterus. No conjunctival pallor. Normocephalic, atraumatic. No pharyngeal erythema. No thyromegaly. CARDIOVASCULAR: S1 and S2 present. No murmurs, rubs, or gallops. PULMONARY: Chest is clear to auscultation, no wheezing , no crackles. -ABDOMEN: Soft, nondistended, normoactive bowel sounds. No palpable organomegaly. Surgical wound closed with dressing in place, surrounding tenderness as expected MUSCULOSKELETAL: No joint swelling or deformity. EXTREMITIES: No cyanosis, clubbing, or pedal edema. NEUROLOGICAL: Gross neurological examination did not reveal any focal deficits. SKIN: No rashes. no petechiae. - Labs CBC & Chem 7: 02/23/23 07:26 02/25/23 11:43 Labs: Abnormal Lab Results - Last 24 Hours (Table) 02/25/23 02/25/23 02/25/23 Range/Units 11:35 11:43 16:24 Glucose 146 H (74-99) mg/dL POC Glucose (mg/dL) 155 H 150 H (70-110) mg/dL Calcium 8.0 L (8.4-10.2) mg/dL 02/25/23 02/26/23 Range/Units 21:03 06:18 Glucose (74-99) mg/dL POC Glucose (mg/dL) 214 H 148 H (70-110) mg/dL Calcium (8.4-10.2) mg/dL Microbiology - Last 24 Hours (Table) 02/20/23 13:32 Blood Culture - Final Blood Assessment and Plan Assessment: Bladder tumor with perforation status post cystoscopy with exploratory laparotomy and excision of urinary bladder tumor and repair of perforation on 02/19.biopsy showing Superficial invasive high-grade urethral carcinoma Severe anemia secondary to above Acute kidney injury, mild Acute urinary tract infection thick aortic valve with negative blood culture so far altered mental status, secondary to toxic/metabolic encephalopathy Diabetes mellitus Hypertension Hyperlipidemia History of osteoarthritis Hypothyroidism Plan: Continue with cefepime Continue with Bella catheter with continuous irrigation Urology consult is appreciated Follow-up urinary bladder pathology results Cardiology team sign off the case Urologist and general surgery and nephrology consult the case as well Labs and medication were reviewed.. Continue same treatment. Continue with sy mptomatic treatment. Resume home medication. Monitor lytes and vitals. DVT and GI prophylaxis. Further recommendations depends on the clinical course of the patient DVT prophylaxis: no Subcutaneous heparin. 4 severe anemia and hematuria GI Prophylaxis: Pepcid PT/OT: Pending Prognosis is guarded
[2023-02-26] MEDS: amLODIPine 10 MG TAB PO SCH (10:30)
[2023-02-26 11:39] LABS: Glucose,Whole Blood 183 mg/dL (70-110)
--- NOTE | 2023-02-26 13:02 | P.PN ---
Subjective Progress Note Date: 02/25/23 Principal diagnosis: Postop fever Patient is a 77-year-old male presenting to the hospital for evaluation of lower abdominal pain that started the night before he presented to the hospital the patient also complaining of blood in his urine, patient was noticed to have ruptured bladder and the patient is status post expiratory laparotomy and repair of the bladder rupture patient did spike a fever postoperatively. On today's evaluation that is 02/26/2023, the patient remains to be afebrile, the patient is breathing comfortably on room air, the patient denies chest pain shortness of breath and no significant cough , the patient has been tolerating his diet no vomiting diarrhea or abdominal pain has been reported Patient did have a normal white count as of 02/23/2023 and a creatinine 1.04 as of 02/25/2023, no labs were drawn today Objective - Vital Signs Vital signs: Vital Signs Temp 98.2 F 02/25/23 07:28 Pulse 66 02/25/23 07:28 Resp 16 02/25/23 07:28 BP 129/70 02/25/23 09:04 Pulse Ox 94 L 02/25/23 07:28 FiO2 40 02/20/23 08:00 Intake & Output 02/24/23 02/25/23 02/25/23 18:59 06:59 18:59 Intake Total 1540 820 Output Total 200 1380 Balance 1340 -1380 820 Intake: IV 100 100 Cefepime 2 gm In Sodium 100 100 Chloride 0.9% 100 ml @ 25 mls/hr IVPB Q12H [facility] Rx# :[id number] Intake, IV Titration 600 600 Amount Sodium Chloride 0.9% 1, 600 600 000 ml @ 75 mls/hr IV . [id number] [facility] Rx#:[id number] Oral 840 120 Output: Urine 200 1380 Suprapubic 100 Other: Voiding Method Indwelling Catheter Indwelling Catheter Indwelling Catheter - Exam GENERAL DESCRIPTION: An elderly male lying in bed in no distress RESPIRATORY SYSTEM: Unlabored breathing , decreased breath sounds at bases HEART: S1 S2 regular rate and rhythm , ABDOMEN: Soft , no tenderness EXTREMITIES: No edema feet - Labs CBC & Chem 7: 02/23/23 07:26 02/25/23 11:43 Labs: Abnormal Lab Results - Last 24 Hours (Table) 08/08/1802/24/23 02/25/23 Range/Units 16:19 20:46 06:01 Glucose (74-99) mg/dL POC Glucose (mg/dL) 186 H 165 H 149 H (70-110) mg/dL Calcium (8.4-10.2) mg/dL 02/25/23 02/25/23 Range/Units 11:35 11:43 Glucose 146 H (74-99) mg/dL POC Glucose (mg/dL) 155 H (70-110) mg/dL Calcium 8.0 L (8.4-10.2) mg/dL Microbiology - Last 24 Hours (Table) 02/21/23 10:08 Blood Culture - Preliminary Blood Assessment and Plan (1) Fever Current Visit: Yes Status: Acute Code(s): R50.9 - FEVER, UNSPECIFIED SNOMED Code(s): 275888932 (2) Urinary tract infection Current Visit: Yes Status: Acute Code(s): N39.0 - URINARY TRACT INFECTION, SITE NOT SPECIFIED SNOMED Code(s): 66200882 Plan: 1patient with sepsis in this patient was in the hospital abdominal pain patient has been diagnosed with a ruptured bladder status post arthrotomy and operative repair patient with a fever elevated white count tachycardia source likely urinary and will need to cover for the enteric gram-negative to be the likely pathogen 2- patient did have a positive UA blood and urine as well as blood cultures are so far negative 3Patient fever pattern has improved and the patient white count is normal culture has been negative for any resistant pathogen, patient to continue the patient on cefepime 2 g every 8 hours while inpatient and will consider short course of oral Ceftin on discharge at the bedside questions concerned were answered Dictation was produced using [employer] dictation software. please excuse any gramm atical, word or spelling errors. Time with Patient: Less than 30
--- NOTE | 2023-02-26 13:04 | P.PN ---
Subjective Progress Note Date: 02/26/23 Principal diagnosis: Postop fever Patient is a 77-year-old male presenting to the hospital for evaluation of lower abdominal pain that started the night before he presented to the hospital the patient also complaining of blood in his urine, patient was noticed to have ruptured bladder and the patient is status post expiratory laparotomy and repair of the bladder rupture patient did spike a fever postoperatively. On today's evaluation that is 02/26/2023, the patient denies any fever or any chills, the patient is breathing comfortably on room air, the patient denies chest pain shortness of breath and no significant cough , the patient has been tolerating his diet and being fed by his , no vomiting diarrhea or abdominal pain has been reported Patient did have a normal white count as of 02/23/2023 and a creatinine 1.04 as of 02/25/2023, no labs were drawn today Objective - Vital Signs Vital signs: Vital Signs Temp 98.7 F 02/26/23 07:46 Pulse 68 02/26/23 07:46 Resp 17 02/26/23 07:46 BP 191/73 02/26/23 07:46 Pulse Ox 94 L 02/26/23 10:11 FiO2 40 02/20/23 08:00 Intake & Output 02/25/23 02/26/23 02/26/23 18:59 06:59 18:59 Intake Total 820 500 Output Total 1050 800 Balance -230 -800 500 Intake: IV 100 100 Cefepime 2 gm In Sodium 100 100 Chloride 0.9% 100 ml @ 25 mls/hr IVPB Q12H [facility] Rx# :[id number] Intake, IV Titration 600 400 Amount Sodium Chloride 0.9% 1, 600 400 000 ml @ 50 mls/hr IV . Q20H [facility] Rx#:[id number] Oral 120 Output: Urine 1050 800 Other: Voiding Method Indwelling Catheter Indwelling Catheter # Voids 1 - Exam GENERAL DESCRIPTION: An elderly male lying in bed in no distress RESPIRATORY SYSTEM: Unlabored breathing , decreased breath sounds at bases HEART: S1 S2 regular rate and rhythm , ABDOMEN: Soft , no tenderness EXTREMITIES: No edema feet - Labs CBC & Chem 7: 02/23/23 07:26 02/25/23 11:43 Labs: Abnormal Lab Results - Last 24 Hours (Table) 02/25/23 02/25/2323 Range/Units 16:24 21:03 06:18 POC Glucose (mg/dL) 150 H 214 H 148 H (70-110) mg/dL 02/26/23 Range/Units 11:33 POC Glucose (mg/dL) 183 H (70-110) mg/dL Microbiology - Last 24 Hours (Table) 02/20/23 13:32 Blood Culture - Final Blood Assessment and Plan (1) Fever Current Visit: Yes Status: Acute Code(s): R50.9 - FEVER, UNSPECIFIED SNOMED Code(s): 404812104 (2) Urinary tract infection Current Visit: Yes Status: Acute Code(s): N39.0 - URINARY TRACT INFECTION, SITE NOT SPECIFIED SNOMED Code(s): 40863027 Plan: 1patient with sepsis in this patient was in the hospital abdominal pain patient has been diagnosed with a ruptured bladder status post arthrotomy and operative repair patient with a fever elevated white count tachycardia source likely urinary and will need to cover for the enteric gram-negative to be the likely pathogen 2- patient did have a positive UA blood and urine as well as blood cultures are so far negative 3Patient fever has resolved and the patient white count is normal culture has been negative for any resistant pathogen 4- patient to continue on cefepime 2 g every 8 hours while inpatient and will consider short course of oral Ceftin 5 days on discharge Dictation was produced using [employer] dictation software. please excuse any grammatical, word or spelling errors. Time with Patient: Less than 30
[2023-02-26 13:17] VITALS: BMI 28.1
--- NOTE | 2023-02-26 14:37 | P.PN ---
Subjective Progress Note Date: 02/26/23 This is a 77-year-old male patient with a known history of benign prostatic hyperplasia, hypertension, hyperlipidemia, coronary artery disease with previous stent placements, diabetes mellitus, gastroesophageal reflux disease. He presented here to the emergency room on 02/18/2023 with complaints of difficulty in urination and blood in his urine. He was having suprapubic pain and difficulty making any urine. Ultrasound of the bladder revealed a mass or debris-filled urinary bladder. Bilateral renal cyst. Computed tomography scan of the abdomen and pelvis revealed a large heterogenous-appearing urinary bladder with minimal contrast present on delayed images. Urinary bladder appears to be filled with debris. Polypoid mass along the anterior lateral left urinary bladder was not excluded. On 02/19/2023 had undergone a cystoscopy with evacuation of clots, exploratory laparotomy, open excision of bladder tumor and repair of bladder laceration. A suprapubic catheter was placed. Late last night and early this morning the patient developed confusion and agitation. He was having rhonchorous respirations as well. He was subsequently transferred to the intensive care unit and placed on BiPAP 10/5 on 30% FiO2. His restlessness and confusion required Precedex infusion currently at 0.4 mcg/kg per hour. Chest x-ray reveals chronic changes without evidence for acute pulmonary disease. He is more calm and cooperative. He will be transitioned to nasal cannula. Continuous bladder irrigation is present. Heme no hematuria noted in urine output. He has normal saline at 75 ML's per hour. Antibiotics in the form of cefazolin. White count 8.8. Hemoglobin 7.6. Platelets 135. Arterial blood gases on 40% FiO2 had revealed a PaO2 of 113, pCO2 47, pH 7.25. Sodium 141. Potassium 5.9. Bicarb 27. BUN 39. Creatinine 2.07. Glucose 141. Lactic acid 4.0. The patient is seen today 02/21/2023 in follow-up in the intensive care unit. He is currently sitting up in bed. Awake and alert in no acute distress. He is having episodes of confusion. He has been off the Precedex. heat treat supervisor at the bedside. Currently on 2 L/m per nasal cannula. He continues with continuous bladder irrigation. No significant clot noted. White count 6.1. Hemoglobin 8.0. Platelets 143. Sodium 139. Potassium 4.6. Bicarb 25. BUN 34. Creatinine 1.52. Glucose 136. He has normal saline at 75 ML's per hour. Echocardiogram revealed preserved left ventricular systolic function with ejec tion fraction 55-60%. There is some thickening of the aortic valve leaflet vegetation cannot be excluded. He remains on cefepime. NicoDerm patch in place. He did undergo EGD today which revealed mild antral gastritis. No evidence of ischemic stomach. Progress note dated 02/22/2023.The patient is seen today on the general medical floor, room 451. The patient's currently on 2 L of oxygen. He is receiving saline at 75 mL an hour. The patient apparently has been misbehaving, and has a sitter at the bedside. Apparently he has spit at the sitter. Labs today include a white count of 6.59, hemoglobin 6.4, hematocrit 20.6, and a platelet count of 137,000. Sodium 142, potassium 4, chlorides 111, CO2 23, BUN 26, and creatinine 1.2. 2 units of packed red blood cells were ordered, but not yet given. On today's evaluation of 02/23/2023, the patient is resting comfortably in bed and the patient is currently on 2 L of oxygen by nasal cannula. Notices signs of any significant respiratory distress. No hematuria. Denies having any abdominal pain or abdominal distention. He did have blood loss anemia with drop in hemoglobin down to 6.4 and the patient underwent an EGD that showed evidence of gastritis. He received a total of 2 units of packed RBC and a follow-up hemoglobin from today is up to 9.0. Platelet count is at 138. BUN is at 24 with a creatinine of 1.20 sodium level is at 143. He has no issues with pain. Dilaudid to be discontinued. Noted the patient has undergone cystoscopy and expiratory laparotomy and excision of a recurrent bladder tumor and repair of a bladder perforation and this was done on 02/19/2023 and the patient is postop day #4. Is also known to have coronary artery disease, hypertension, BPH, hyperlipidemia, and diabetes mellitus. On today's evaluation of 02/24/2023, the patient is on room air oxygen and the patient is resting comfortably in bed. He is probably catheter and the Bella catheter and the patient is not having any evidence of hematuria. Bladder irrigation has been discontinued. Hemoglobin is stable from yesterday at 9.0. The patient has also demonstrated from the renal function the creatinine is down to 1.2 from yesterday. He is postop day #5 and the patient underwent cystoscopu , exploratory laparoscopy and resection of a bladder tumor and repair of the bladder perforation. He is swallowing. He looks to be somewhat lethargic and sleepy. No other significant issues over the past 24 hours. On 02/25/2023, the patient is doing well and the patient is on room air oxygen. No complaints. No bleeding. He is weak and I'm not sure is going to be able to ambulate independently. His Bella catheter is in place. The suprapubic catheter is in place. The patient is not having any issues tolerating his diet. Renal function stable with a BUN of 17 and a creatinine of 1. Sodium is at 137. The patient is using the incentive spirometer. The patient is currently on room air oxygen. He remains on IV cefepime. 82,023, the patient is postop day #7. No complaints. Awake and alert and communicating. Hemodynamically stable on room air oxygen. No hematuria. No other complaints otherwise. He is undergoing physical therapy Objective - Vital Signs Vital signs: Vital Signs Temp 98.7 F 02/26/23 07:46 Pulse 68 02/26/23 07:46 Resp 17 02/26/23 07:46 BP 191/73 02/26/23 07:46 Pulse Ox 94 L 02/26/23 10:11 FiO2 40 02/20/23 08:00 Intake & Output 02/25/23 02/26/23 02/26/23 18:59 06:59 18:59 Intake Total 820 500 Output Total 1050 800 Balance -230 -800 500 Intake: IV 100 100 Cefepime 2 gm In Sodium 100 100 Chloride 0.9% 100 ml @ 25 mls/hr IVPB Q12H [facility] Rx# :[id number] Intake, IV Titration 600 400 Amount Sodium Chloride 0.9% 1, 600 400 000 ml @ 50 mls/hr IV . Q20H [facility] Rx#:[id number] Oral 120 Output: Urine 1050 800 Other: Voiding Method Indwelling Catheter Indwelling Catheter # Voids 1 - Exam No acute distress, confused, currently on room air oxygen HEENT examination is grossly unremarkable. Neck supple. Full range of motion. No adenopathy thyromegaly or neck vein distention. Cardiovascular examination reveals regular rhythm rate. S1-S2 normal. No S3 or S4. No discernible murmur noted. Lungs reveal mostly clear breath sounds. Scattered mild rhonchi noted. No wheezes or crackles. Abdomen soft bowel sounds are heard. No masses or tenderness. The patient is morbidly catheter in place in addition to a Bella catheter. Abdomen is n ondistended. Extremities are intact. No cyanosis clubbing or edema. Skin is without rash or lesion. Neurologic examination reveals patient to be confused. - Labs CBC & Chem 7: 02/23/23 07:26 02/25/23 11:43 Labs: Abnormal Lab Results - Last 24 Hours (Table) 02/25/23 02/25/23 02/25/23 Range/Units 11:43 16:24 21:03 Glucose 146 H (74-99) mg/dL POC Glucose (mg/dL) 150 H 214 H (70-110) mg/dL Calcium 8.0 L (8.4-10.2) mg/dL 02/26/23 02/26/23 Range/Units 06:18 11:33 Glucose (74-99) mg/dL POC Glucose (mg/dL) 148 H 183 H (70-110) mg/dL Calcium (8.4-10.2) mg/dL Microbiology - Last 24 Hours (Table) 02/20/23 13:32 Blood Culture - Final Blood Assessment and Plan Plan: Bladder tumor post extensive laparotomy and open surgical resection and repair of a bladder laceration. The patient is postop day # 7 Hematuria and urinary retention secondary to a large heterogenous-appearing urinary bladder filled with debris. Polypoid mass on the anterior left lateral urinary bladder not excluded. Status post cystoscopy and evacuation of clots, exploratory laparotomy, open excision of bladder tumor area. Bladder laceration. Patient currently has a markedly catheter in place. Over 500 mL of clot removed from bladder. Extraperitoneal bladder rupture was identified at the left bladder dome and repaired. An anterior bladder dome tumor was identified and excised. The patient is stable for now and showed no evidence of any hematuria Blood loss Anemia secondary to above. The patient received a total of 2 units of packed RBC and the last hemoglobin was up to 9.0. Acute renal failure, improving and a creatinine is normalizing Altered mental status with agitation and confusion, recovered, and the patient has normal mentation for now Acute hypoxemic respiratory failure requiring BiPAP support, recovered and the patient is currently on room air oxygen Coronary artery disease with previous stent placements. History of benign prostatic hyperplasia. Hypertension. Hyperlipidemia. Diabetes mellitus. History of chronic tobacco dependence. Plan: Clinically stable Gradually improving Patient is still recovering from his surgery and the patient is currently postop day # 7 Patient is working with physical therapy No signs of any respiratory distress Acute hypoxic respiratory failure is improved and the patient is currently on oxygen Anemia stable and the patient's hemoglobin is up to 9 Renal function continues to improve Continue broad-spectrum antibiotics with IV cefepime Suprapubic catheter in place Pulmonary critical care services will sign off
--- NOTE | 2023-02-26 14:54 | P.PN ---
Subjective Progress Note Date: 02/26/23 77 years old male with past medical history of coronary artery disease, hypertension, hyperlipidemia, diabetes mellitus, GERD. Patient presents because urinary symptoms related to urinary bladder tumor with perforation status post cystoscopy and exploratory laparotomy and excision of the recurrent bladder tumor and repair of perforation on 02/19. Today is postop day # 7 He still has Bella catheter with irrigation. His suprapubic catheter. Also patient Agitation confused at time and there is a sitter at bedside for safety 02/24/2023 Overall patient is improving and doing well Patient is hemodynamically stable, blood pressure on the high side, hydralazine 100 mg twice a day increased into 3 times a day. Blood pressure this morning was 188/78. Urologically patient is a stable, we recommend to keep suprapubic catheter with the drainage to gravity nephrology and Gen. surgery team signed off the case reed worker consulted for placement Sitter can be discontinued as patient is calm. 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 Patient and at bedside, whom pt gave verbal consent to be informed as well, were informed both with the results of this above UB biopsy, also the need to follow-up with urologist and both of them agreed to see upon discharge for further treatment 02/26 : Patient seen and evaluated bedside. Patient noted to have significant elevation in blood pressure overnight antihypertensive medications adjusted. Plan to discharge to rehab within the next 24 hours Objective - Vital Signs Vital signs: Vital Signs Temp 98.7 F 02/26/23 07:46 Pulse 68 02/26/23 07:46 Resp 17 02/26/23 07:46 BP 191/73 02/26/23 07:46 Pulse Ox 94 L 02/26/23 10:11 FiO2 40 02/20/23 08:00 Intake & Output 02/25/23 02/26/23 02/26/23 18:59 06:59 18:59 Intake Total 820 500 Output Total 1050 800 Balance -230 -800 500 Weight 89 kg Intake: IV 100 100 Cefepime 2 gm In Sodium 100 100 Chloride 0.9% 100 ml @ 25 mls/hr IVPB Q12H [facility] Rx# :[id number] Intake, IV Titration 600 400 Amount Sodium Chloride 0.9% 1, 600 400 000 ml @ 50 mls/hr IV . Q20H [facility] Rx#:[id number] Oral 120 Output: Urine 1050 800 Other: Voiding Method Indwelling Catheter Indwelling Catheter # Voids 1 - Exam PHYSICAL EXAMINATION: GENERAL: The patient is alert and oriented x3, not in any acute distress. Well developed, well nourished. HEENT: Pupils are round and equally reacting to light. EOMI. No scleral icterus. No conjunctival pallor. Normocephalic, atraumatic. No pharyngeal erythema. No thyromegaly. CARDIOVASCULAR: S1 and S2 present. No murmurs, rubs, or gallops. PULMONARY: Chest is clear to auscultation, no wheezing or crackles. ABDOMEN: Soft,, surgical incision bandage, suprapubic catheter in place, Bella cath and MUSCULOSKELETAL: No joint swelling or deformity. EXTREMITIES: No cyanosis, clubbing, or pedal edema. NEUROLOGICAL: Gross neurological examination did not reveal any focal deficits. - Labs CBC & Chem 7: 02/23/23 07:26 02/25/23 11:43 Labs: Abnormal Lab Results - Last 24 Hours (Table) 02/25/23 02/25/23 02/26/23 Range/Units 16:24 21:03 06:18 POC Glucose (mg/dL) 150 H 214 H 148 H (70-110) mg/dL 02/26/23 Range/Units 11:33 POC Glucose (mg/dL) 183 H (70-110) mg/dL Microbiology - Last 24 Hours (Table) 02/20/23 13:32 Blood Culture - Final Blood Assessment and Plan Assessment: Assessment: Superficial invasive high-grade urethral carcinoma Bladder tumor with perforation status post cystoscopy with exploratory laparotomy and excision of urinary bladder tumor and repair of perforation on 02/19 Severe anemia secondary to above Acute kidney injury Acute urinary tract infection 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 All visible cancer was excised at the time of surgery. However, CIS cannot always be seen visually. The patient will likely be advised to receive intravesical BCG. Labs and medication were reviewed. DVT prophylaxis: no Subcutaneous heparin. 4 severe anemia and hematuria
[2023-02-26 16:46] LABS: Glucose,Whole Blood 238 mg/dL (70-110)
[2023-02-26] MEDS: TAMSULOSIN 0.4 MG CAP.ER.24H PO SCH (19:57)
[2023-02-26] MEDS: ATORVASTATIN 40 MG TAB PO SCH (19:58)
[2023-02-26 20:49] LABS: Glucose,Whole Blood 172 mg/dL (70-110)
[2023-02-26] MEDS: AMITRIPTYLINE HCL 10 MG TAB PO SCH (21:04)
[2023-02-27 06:14] LABS: Glucose,Whole Blood 186 mg/dL (70-110)
[2023-02-27] MEDS: PANTOPRAZOLE 40 MG/10 ML VIAL IVP SCH (08:23)
[2023-02-27] MEDS: GABAPENTIN 300 MG CAP PO SCH (08:24)
[2023-02-27] MEDS: hydrALAZINE HCL 50 MG TAB PO SCH (08:24)
[2023-02-27] MEDS: THIAMINE 100 MG TAB PO SCH (08:24)
[2023-02-27] MEDS: MULTIVITAMINS, THERA 1 EACH TAB PO SCH (08:24)
[2023-02-27] MEDS: LORATADINE 10 MG TAB PO SCH (08:24)
[2023-02-27] MEDS: FINASTERIDE 5 MG TAB PO SCH (08:24)
[2023-02-27] MEDS: metFORMIN 500 MG TAB PO SCH (08:24)
[2023-02-27] MEDS: amLODIPine 10 MG TAB PO SCH (08:24)
[2023-02-27] MEDS: FOLIC ACID 1 MG TAB PO SCH (08:25)
[2023-02-27] MEDS: atenoloL 50 MG TAB PO SCH (08:25)
[2023-02-27] MEDS: CEFEPIME 2 GM in SODIUM CHLORIDE 0.9% 100 ML IVPB SCH (08:25)
--- NOTE | 2023-02-27 09:24 | P.PN ---
Subjective Progress Note Date: 02/27/23 Principal diagnosis: POD #8, s/p evacuation of clot and repair of bladder rupture The patient underwent exploratory laparotomy with repair of bladder rupture. A bladder tumor was excised. His condition is improved and he is being transferred to [facility] for rehab. Objective - Vital Signs Vital signs: Vital Signs Temp 98.5 F 02/27/23 02:00 Pulse 75 02/27/23 02:00 Resp 16 02/26/23 20:10 BP 178/73 02/27/23 02:00 Pulse Ox 96 02/27/23 02:00 FiO2 40 02/20/23 08:00 Intake & Output 02/26/23 02/26/23 02/27/23 06:59 18:59 06:59 Intake Total 740 550 Output Total 800 1130 Balance -800 740 -580 Weight 89 kg Intake: IV 100 500 0.9 500 Cefepime 2 gm In Sodium 100 Chloride 0.9% 100 ml @ 25 mls/hr IVPB Q12H [facility] Rx# :[id number] Intake, IV Titration 400 50 Amount Cefepime 2 gm In Sodium 50 Chloride 0.9% 100 ml @ 25 mls/hr IVPB Q8HR [facility] Rx# :[id number] Sodium Chloride 0.9% 1, 400 000 ml @ 50 mls/hr IV . Q20H [facility] Rx#:[id number] Oral 240 Output: Urine 800 1130 Other: Voiding Method Indwelling Catheter Indwelling Catheter # Voids 1 1 # Bowel Movements 1 - Constitutional General appearance: Present: average body habitus, cooperative, no acute distress - Gastrointestinal Gastrointestinal Comment(s): Abdomen soft, non-distended. Incision healing well. Clear urine draining from suprapubic cystostomy tube. Urethral catheter is plugged. - Psychiatric Psychiatric: Present: A&O x's 3 - Labs CBC & Chem 7: 02/23/23 07:26 02/25/23 11:43 Labs: Abnormal Lab Results - Last 24 Hours (Table) 02/26/23 02/26/23 02/26/23 Range/Units 11:33 16:36 20:47 POC Glucose (mg/dL) 183 H 238 H 172 H (70-110) mg/dL 02/27/23 Range/Units 06:12 POC Glucose (mg/dL) 186 H (70-110) mg/dL Microbiology - Last 24 Hours (Table) 02/21/23 10:08 Blood Culture - Final Blood Assessment and Plan Assessment: Patient's condition continues to improve. 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 (1) Gross hematuria Current Visit: Yes Status: Acute Code(s): R31.0 - GROSS HEMATURIA SNOMED Code(s): 441232142 (2) Urinary retention Current Visit: Yes Status: Acute Code(s): R33.9 - RETENTION OF URINE, UNSPECIFIED SNOMED Code(s): 937964644 (3) Prostate nodule Current Visit: Yes Status: Acute Code(s): N40.2 - NODULAR PROSTATE WITHOUT LOWER URINARY TRACT SYMPTOMS SNOMED Code(s): 600711523605921 Plan: The patient is urologically stable. The Bella catheter will remain plugged, and the suprapubic tube will remain connected to gravity drainage. Surgical flaquita will be removed prior to transfer to [facility], and he will follow up with me as an outpatient in 1 week. He will likely be advised to receive intravesical BCG beginning in 4-6 weeks.
[2023-02-27] MEDS: FLUTICASONE 50MCG/SPRAY NASAL 16GM EA NOSTRIL SCH (09:42)
[2023-02-27 11:25] LABS: Glucose,Whole Blood 212 mg/dL (70-110)
--- NOTE | 2023-02-27 12:31 | P.DS ---
Providers Date of admission: 02/20/23 08:25 Expected date of discharge: 02/27/23 Attending physician: Machelle Lynch Consults: 02/18/23 23:24 Consult Physician Stat Consulting Provider: Dae Mcgovern Consult Reason/Comments: hematuria, obstruction Do you want consulting provider notified?: Already Contacted 02/19/23 23:30 Consult Physician Stat Consulting Provider: Scott Eagle Consult Reason/Comments: ICU managment Do you want consulting provider notified?: Already Contacted 02/20/23 12:45 Consult Physician Routine Consulting Provider: Eliana Archuleta Consult Reason/Comments: sepsis Do you want consulting provider notified?: Yes 02/20/23 14:33 Consult Physician Urgent Consulting Provider: Antoine Buck Consult Reason/Comments: patrizia, hyperkalemia Do you want consulting provider notified?: Yes Primary care physician: [facility] Course: 77 years old male with past medical history of coronary artery disease, hypertension, hyperlipidemia, diabetes mellitus, GERD. Patient presents because urinary symptoms related to urinary bladder tumor with perforation status post cystoscopy and exploratory laparotomy and excision of the recurrent bladder tumor and repair of perforation on 02/19. Today is postop day # 7 He still has Bella catheter with irrigation. His suprapubic catheter. Also patient Agitation confused at time and there is a sitter at bedside for safety 02/24/2023 Overall patient is improving and doing well Patient is hemodynamically stable, blood pressure on the high side, hydralazine 100 mg twice a day increased into 3 times a day. Blood pressure this morning was 188/78. Urologically patient is a stable, we recommend to keep suprapubic catheter with the drainage to gravity nephrology and Gen. surgery team signed off the case supervisor cemetery workers consulted for placement Sitter can be discontinued as patient is calm. 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 Patient and at bedside, whom pt gave verbal consent to be informed as well, were informed both with the results of this above UB biopsy, also the need to follow-up with urologist and both of them agreed to see upon discharge for further treatment 02/26 : Patient seen and evaluated bedside. Patient noted to have significant elevation in blood pressure overnight antihypertensive medications adjusted. Plan to discharge to rehab within the next 24 hours 02/27: Patient evaluated bedside. Patient asymptomatic noted to have elevated blood pressure however better control.. Past medical history and home medications reviewed. Prior to this Hospital stay patient was on Plavix which was discontinued however patient does have significant coronary artery disease hence we will discharge patient on aspirin 81 mg with follow-up with urology to monitor for hematuria. GENERAL: The patient is alert and oriented x3, not in any acute distress. Well developed, well nourished. HEENT: Pupils are round and equally reacting to light. EOMI. No scleral icterus. No conjunctival pallor. Normocephalic, atraumatic. No pharyngeal erythema. No thyromegaly. CARDIOVASCULAR: S1 and S2 present. No murmurs, rubs, or gallops. PULMONARY: Chest is clear to auscultation, no wheezing or crackles. ABDOMEN: Soft,, surgical incision bandage, suprapubic catheter in place, Bella cath and MUSCULOSKELETAL: No joint swelling or deformity. EXTREMITIES: No cyanosis, clubbing, or pedal edema. NEUROLOGICAL: Gross neurological examination did not reveal any focal deficits. Assessment: Assessment: Superficial invasive high-grade urethral carcinoma Bladder tumor with perforation status post cystoscopy with exploratory laparotomy and excision of urinary bladder tumor and repair of perforation on 02/19 Severe anemia secondary to above Acute kidney injury resolved Acute urinary tract infection thick aortic valve with negative blood culture altered mental status, toxic/metabolic encephalopathy Diabetes mellitus Hypertension Hyperlipidemia History of osteoarthritis Hypothyroidism Plan: Continue with cefepime , planned to transition to oral Ceftin upon discharge Continue with Bella catheter managed by urology Patient will need outpatient follow-up with urology Cardiology team sign off the case, discharge on aspirin, continue current antihypertensive medication Urologist and general surgery and nephrology consult the case as well PER UROLOGY : The catheters will remain in place for 2 weeks. All visible cancer was excised at the time of surgery. However, CIS cannot always be seen visually. The patient will likely be advised to receive intravesical BCG. Labs and medication were reviewed. No lobe and remained stable Patient Condition at Discharge: Fair Plan - Discharge Summary New Discharge Prescriptions: New atenoloL [Tenormin] 50 mg PO HS tab Aspirin 81 mg PO DAILY #30 tab hydrALAZINE HCL [Apresoline] 100 mg PO TID tab Folic Acid 1 mg PO DAILY@1200 tab Multivitamins, Thera [Multivitamin (formulary)] 1 each PO DAILY@1200 tab amLODIPine [Norvasc] 10 mg PO DAILY tab atenoloL [Tenormin] 50 mg PO DAILY tab Thiamine [Vitamin B-1] 100 mg PO DAILY@1200 tab cefUROXime axetiL [Ceftin] 500 mg PO BID 5 Days #10 tab Continue Tamsulosin [Flomax] 0.4 mg PO HS Finasteride 5 mg PO DAILY Ergocalciferol [Vitamin D2 (DRISDOL)] 50,000 unit PO Q14D metFORMIN HCL 500 mg PO BID-W/MEALS Nitroglycerin Sl Tabs [Nitrostat] 0.4 mg SUBLINGUAL Q5M PRN #25 tab PRN Reason: Chest Pain Fluticasone Nasal [place] [Flonase Nasal [place]] 1 spray EA NOSTRIL BID Pantoprazole [Protonix] 40 mg PO DAILY Atorvastatin [Lipitor] 40 mg PO HS Amitriptyline HCl [Elavil] 10 mg PO HS Cetirizine HCl [Zyrtec] 10 mg PO DAILY Gabapentin 300 mg PO DAILY 3 Days #3 cap Discontinued atenoloL 50 mg PO DAILY atenoloL [Tenormin] 25 mg PO HS Clopidogrel [Plavix] 75 mg PO DAILY tab hydrALAZINE HCL [Apresoline] 25 mg PO BID-W/MEALS Losartan Potassium 100 mg PO DAILY Discharge Medication List Ergocalciferol [Vitamin D2 (DRISDOL)] 50,000 unit PO Q14D 01/13/14 [History] Finasteride 5 mg PO DAILY 01/13/14 [History] Tamsulosin [Flomax] 0.4 mg PO HS 01/13/14 [History] metFORMIN HCL 500 mg PO BID-W/MEALS 04/25/16 [History] Nitroglycerin Sl Tabs [Nitrostat] 0.4 mg SUBLINGUAL Q5M PRN #25 tab 04/28/16 [Rx] Amitriptyline HCl [Elavil] 10 mg PO HS 02/18/23 [History] Atorvastatin [Lipitor] 40 mg PO HS 02/18/23 [History] Cetirizine HCl [Zyrtec] 10 mg PO DAILY 02/18/23 [History] Fluticasone Nasal [place] [Flonase Nasal [place]] 1 spray EA NOSTRIL BID 02/18/23 [History] Pantoprazole [Protonix] 40 mg PO DAILY 02/18/23 [History] Aspirin 81 mg PO DAILY #30 tab 02/27/23 [Rx] Folic Acid 1 mg PO DAILY@1200 tab 02/27/23 [Rx] Gabapentin 300 mg PO DAILY 3 Days #3 cap 02/27/23 [Rx] Multivitamins, Thera [Multivitamin (formulary)] 1 each PO DAILY@1200 tab 02/27/23 [Rx] Thiamine [Vitamin B-1] 100 mg PO DAILY@1200 tab 02/27/23 [Rx] amLODIPine [Norvasc] 10 mg PO DAILY tab 02/27/23 [Rx] atenoloL [Tenormin] 50 mg PO DAILY tab 02/27/23 [Rx] atenoloL [Tenormin] 50 mg PO HS tab 02/27/23 [Rx] cefUROXime axetiL [Ceftin] 500 mg PO BID 5 Days #10 tab 02/27/23 [Rx] hydrALAZINE HCL [Apresoline] 100 mg PO TID tab 02/27/23 [Rx] Follow up Appointment(s)/Referral(s): Dae Mcgovern MD [STAFF PHYSICIAN] - 03/02/23 Cameron Ang III, MD [Primary Care Provider] - 1-2 days Activity/Diet/Wound Care/Special Instructions: Discharge home with Bella catheter plugged, and suprapubic tube to gravity drainage. Discharge Disposition: TRANSFER TO SNF/ECF
[2023-02-27 14:43] VITALS: BP 155/75; PULSE 71; RESP 16; TEMP 97.8
--- NOTE | 2023-02-28 00:13 | P.PN ---
Subjective Patient is seen for follow-up for acute kidney injury. Renal function has improved. Serum creatinine staying at about 1.2 mg/dL. decreased to 1.0 Patient is awake and comfortable Objective - Vital Signs Vital signs: Vital Signs Temp 97.8 F 02/27/23 14:10 Pulse 71 02/27/23 14:10 Resp 16 02/27/23 14:10 BP 155/75 02/27/23 14:10 Pulse Ox 98 02/27/23 14:10 FiO2 40 02/20/23 08:00 Intake & Output 02/27/23 02/27/23 02/28/23 06:59 18:59 06:59 Intake Total 550 Output Total 1130 950 Balance -580 -950 Intake: IV 500 0.9 500 Intake, IV Titration 50 Amount Cefepime 2 gm In Sodium 50 Chloride 0.9% 100 ml @ 25 mls/hr IVPB Q8HR BLOSSOM Rx# :[id number] Output: Urine 1130 950 Other: Voiding Method Indwelling Catheter Indwelling Catheter # Voids 1 # Bowel Movements 1 - Labs CBC & Chem 7: 02/23/23 07:26 02/25/23 11:43 Labs: Abnormal Lab Results - Last 24 Hours (Table) 02/27/23 02/27/23 Range/Units 06:12 11:23 POC Glucose (mg/dL) 186 H 212 H (70-110) mg/dL Microbiology - Last 24 Hours (Table) 02/21/23 10:08 Blood Culture - Final Blood Assessment and Plan Assessment: #1 acute kidney injury secondary to hemodynamic ATN. -Baseline creatinine 0.9 MG per DL. #2 bladder hematoma with rupture status post repair. #3 hematuria secondary to bladder rupture and surgery #4 hypertension #5 anemia secondary to acute blood loss.Hb 9.0g/dL Plan: Encourage increased oral intake Stable for discharge from nephrology standpoint Follow-up with urology post discharge.
== END 2023-02-27 15:52 | DRG 653 ==
LOC: EC 18:06 → 5NMEDONC 23:25 → 2SICU 02-20 00:02 → OBSVTOIN 02-20 08:25 → 4SSUR 02-21 12:43
PROVIDERS: ADMIT Hospitalist; ATTEND Hospitalist
PROC: 0TBB0ZZ Excision of Bladder, Open Approach (ICD-10-PCS; 2023-02-19)
PROC: 0TQB0ZZ Repair Bladder, Open Approach (ICD-10-PCS; 2023-02-19)
PROC: 0TCB8ZZ Extirpation of Matter from Bladder, Via Natural or Artificial Opening Endoscopic (ICD-10-PCS; principal; 2023-02-19 08:35)
PROC: 5A09357 Assistance with Respiratory Ventilation, Less than 24 Consecutive Hours, Continuous Positive Airway Pressure (ICD-10-PCS; 2023-02-20)
PROC: 0T9B30Z Drainage of Bladder with Drainage Device, Percutaneous Approach (ICD-10-PCS; 2023-02-20)
PROC: 0DB78ZX Excision of Stomach, Pylorus, Via Natural or Artificial Opening Endoscopic, Diagnostic (ICD-10-PCS; 2023-02-21)
DX: D09.0 Carcinoma in situ of bladder (principal); A41.9 Sepsis, unspecified organism; N17.0 Acute kidney failure with tubular necrosis; J96.01 Acute respiratory failure with hypoxia; G92.8 Other toxic encephalopathy; N17.8 Other acute kidney failure; S37.29XA Other injury of bladder, initial encounter; S37.22XA Contusion of bladder, initial encounter; D62 Acute posthemorrhagic anemia; N39.0 Urinary tract infection, site not specified; C67.6 Malignant neoplasm of ureteric orifice; E11.9 Type 2 diabetes mellitus without complications; I10 Essential (primary) hypertension; E03.9 Hypothyroidism, unspecified; I35.8 Other nonrheumatic aortic valve disorders; R31.0 Gross hematuria; K29.50 Unspecified chronic gastritis without bleeding; N32.89 Other specified disorders of bladder; R33.8 Other retention of urine; K66.0 Peritoneal adhesions (postprocedural) (postinfection); I25.10 Atherosclerotic heart disease of native coronary artery without angina pectoris; E78.5 Hyperlipidemia, unspecified; K21.9 Gastro-esophageal reflux disease without esophagitis; N28.1 Cyst of kidney, acquired; M19.90 Unspecified osteoarthritis, unspecified site; N40.1 Benign prostatic hyperplasia with lower urinary tract symptoms; N40.3 Nodular prostate with lower urinary tract symptoms; R50.82 Postprocedural fever; R39.198 Other difficulties with micturition; Z79.84 Long term (current) use of oral hypoglycemic drugs; Z79.02 Long term (current) use of antithrombotics/antiplatelets; Z79.899 Other long term (current) drug therapy; Z95.5 Presence of coronary angioplasty implant and graft; I25.2 Old myocardial infarction; Z87.891 Personal history of nicotine dependence
CPT/HCPCS: 36415; 36600; 43239; 51702; 51798; 70450; 71045; 74177; 76770; 80048; 80051; 80053; 81001; 82805; 83605; 84132; 85025; 86140; 86850; 86900; 86901; 86920; 87040; 87086; 88305; 88309; 93005; 93306; 94660; 94760; 96372; 96374; 96376; 99291

== ENCOUNTER 2024-01-14 13:02 | Day surgery (SDC) | payer MEDICARE, OTHER ==
--- NOTE | 2024-01-13 07:10 | P.GSHP ---
History of Present Illness H&P Date: 01/13/24 Chief Complaint: Bladder cancer Patient is a 78-year-old white male who presented in January 2023 with urinary clot retention, resulting in a bladder rupture. He underwent open repair of the bladder rupture and was found to have tumor at the bladder dome. This was excised, revealing high-grade urothelial carcinoma with lamina propria invasion and adjacent carcinoma in situ. He was treated with induction intravesical BCG, which he completed May 26, 2023. Recent cystoscopy has shown multiple papillary tumors measuring up to 3 cm in size, and he now comes for resection. - Cardiovascular Cardiovascular: Reports high blood pressure - Genitourinary (Male) Genitourinary: Denies dysuria, Denies hematuria Past Medical History Past Medical History: Coronary Artery Disease (CAD), Chest Pain / Angina, Diabetes Mellitus, GERD/Reflux, Hyperlipidemia, Hypertension, Myocardial Infarction ([place]), Prostate Disorder Last Myocardial Infarction Date:: 01/13/14 History of Any Multi-Drug Resistant Organisms: None Reported Past Surgical History: Heart Catheterization With Stent Additional Past Surgical History / Comment(s): X4. STENTS Past Anesthesia/Blood Transfusion Reactions: No Reported Reaction Date of Last Stent Placement:: 2013 Past Psychological History: No Psychological Hx Reported Smoking Status: Former smoker Past Alcohol Use History: None Reported Past Drug Use History: None Reported - Past Family History Brother(s) Family Medical History: Myocardial Infarction ([place]) Additional Family Medical History / Comment(s): CABG Medications and Allergies Home Medications Medication Instructions Recorded Confirmed Type Ergocalciferol [Vitamin D2 50,000 unit PO Q14D 01/13/14 02/18/23 History (DRHEATHEROL)] Finasteride 5 mg PO DAILY 01/13/14 02/18/23 History Tamsulosin [Flomax] 0.4 mg PO HS 01/13/14 02/18/23 History metFORMIN HCL 500 mg PO BID-W/MEALS 04/25/16 02/18/23 History Nitroglycerin Sl Tabs [Nitrostat] 0.4 mg SUBLINGUAL Q5M PRN #25 tab 04/28/16 0 02/18/23 Rx Amitriptyline HCl [Elavil] 10 mg PO HS 02/18/23 02/18/23 History Atorvastatin [Lipitor] 40 mg PO HS 02/18/23 02/18/23 History Cetirizine HCl [Zyrtec] 10 mg PO DAILY 02/18/23 02/18/23 History Fluticasone Nasal [place] [Flonase 1 spray EA NOSTRIL BID 02/18/23 02/18/23 History Nasal [place]] Pantoprazole [Protonix] 40 mg PO DAILY 02/18/23 02/18/23 History Aspirin 81 mg PO DAILY #30 tab 02/27/23 Rx Folic Acid 1 mg PO DAILY@1200 tab 02/27/23 Rx Gabapentin 300 mg PO DAILY 3 Days #3 cap 02/27/23 Rx Multivitamins, Thera [Multivitamin 1 each PO DAILY@1200 tab 02/27/23 Rx (formulary)] Thiamine [Vitamin B-1] 100 mg PO DAILY@1200 tab 02/27/23 Rx amLODIPine [Norvasc] 10 mg PO DAILY tab 02/27/23 Rx atenoloL [Tenormin] 50 mg PO DAILY tab 02/27/23 Rx atenoloL [Tenormin] 50 mg PO HS tab 02/27/23 Rx cefUROXime axetiL [Ceftin] 500 mg PO BID 5 Days #10 tab 02/27/23 Rx hydrALAZINE HCL [Apresoline] 100 mg PO TID tab 02/27/23 Rx Allergies Allergy/AdvReac Type Severity Reaction Status Date / Time No Known Allergies Allergy Verified 02/18/23 21:45 Surgical - Exam - General well developed, well nourished, no distress - Respiratory normal respiratory effort - Genitourinary normal penis with no external lesions, testicles non-tender - Psychiatric oriented to time, oriented to person, oriented to place, speech is normal, memory intact Assessment and Plan (1) Malignant neoplasm of bladder, unspecified Status: Acute Code(s): C67.9 - MALIGNANT NEOPLASM OF BLADDER, UNSPECIFIED SNOMED Code(s): 957636675 Plan: Cystoscopy, transurethral resection of bladder tumors. The procedure has been reviewed in detail with the patient. He is aware of potential risks, which include anesthesia, bleeding, infection, and bladder perforation.
[~2024-01-14 13:02] MED LIST: LIDOCAINE 1% (10MG/ML) FOR IV START INTRADERMA PRN
[2024-01-14] MEDS: LACTATED RINGERS 1,000 ML IV SCH (13:26)
[2024-01-14] MEDS: DEXAMETHASONE SOD PHOSPHATE 4 MG/ML 1 ML VIAL IV ONE (13:56)
[2024-01-14] MEDS ORDERED: SUCCINYLCHOLINE CHLORIDE 200 MG/10 ML VIAL IV ONE (17:18)
[2024-01-14] MEDS ORDERED: fentaNYL (PF) 50 MCG/ML 2 ML AMP ONE (17:18)
[2024-01-14] MEDS ORDERED: ROCURONIUM 10 MG/ML (5 ML VIAL) IV ONE (17:18)
[2024-01-14] MEDS ORDERED: GLYCOPYRROLATE 0.2 MG/ML 2 ML VIAL ONE (17:18)
[2024-01-14] MEDS ORDERED: HYDROmorphone (PF) 1 MG/ML ONE (17:18)
[2024-01-14] MEDS ORDERED: PROPOFOL 10 MG/ML 20 ML VIAL IV ONE (17:18)
[2024-01-14] MEDS ORDERED: LIDOCAINE 1% INJ 10MG/ML (20 ML MDV) ONE (17:18)
[2024-01-14] MEDS ORDERED: NEOSTIGMINE 1 MG/ML 10 ML VIAL ONE (17:18)
[2024-01-14] MEDS ORDERED: ePHEDrine 50 MG/ML 1 ML VIAL ONE (17:18)
[2024-01-14] MEDS: LACTATED RINGERS 1,000 ML IV ONE (18:33)
--- NOTE | 2024-01-14 18:52 | P.OP ---
Date of Procedure: 01/14/24 Preoperative Diagnosis: Urothelial carcinoma of the bladder Postoperative Diagnosis: Same Procedure(s) Performed: Cystoscopy, transurethral resection of bladder tumor (large) Anesthesia: MAX Surgeon: Dae Mcgovern Estimated Blood Loss (ml): 20 IV fluids (ml): 600 Pathology: other (Bladder tumor fragments) Condition: stable Disposition: PACU Indications for Procedure: Patient is a 78-year-old white male who presented in January 2023 with urinary clot retention, resulting in a bladder rupture. He underwent open repair of the bladder rupture and was found to have tumor at the bladder dome. This was excised, revealing high-grade urothelial carcinoma with lamina propria invasion and adjacent carcinoma in situ. He was treated with induction intravesical BCG, which he completed May 26, 2023. Recent cystoscopy has shown multiple papillary tumors measuring up to 3 cm in size, and he now comes for resection. Operative Findings: Multiple papillary tumors involving the left lateral bladder wall, anterior bladder wall, and left bladder dome. All have a superficial appearance with possible adjacent CIS. Description of Procedure: The patient was taken in the operating room and placed in the dorsal lithotomy position, with his legs supported in Rashad stirrups. The external genitalia was prepped and draped sterilely. The 25-[place] ACMI resectoscope sheath was introduced into the bladder. The bladder was inspected. Both ureteral orifices were of normal anatomic location and configuration, and clear urine effluxed from both. The entire bladder was examined, revealing multiple papillary tumors on the left lateral bladder wall and anterior bladder wall. The largest measured approximately 2-3 cm in size. At the left bladder dome were several small confluent tumors with what appeared to be adjacent CIS. The prostate was partially obstructed, with a bilobar configuration. No urothelial changes were seen within the prostatic urethra. Using the bipolar cutting loop, the tumors w ere resected down to the superficial muscle. The tumors at the left bladder dome were extremely difficult to reach, requiring suprapubic compression. Some of the flat tumor could not be resected, but rather was fulgurated. The entire resection/fulguration bed measured approximately 6 x 4 cm. Excellent hemostasis was attained. The resected tissue was saved and sent for pathologic examination. A biopsy was obtained from the left posterior prostatic urethra using the resectoscope. The resectoscope was then removed. An 18-[place] Bella catheter was inserted. The return was clear. The patient tolerated the procedure well and was taken to the recovery room in stable condition.
[2024-01-14 18:58] LABS: Glucose,Whole Blood 162 mg/dL (70-110)
[2024-01-14] MEDS: hydrALAZINE HCL 20 MG/ML 1 ML VIAL IVP STA (19:06)
[2024-01-14] MEDS: diphenhydrAMINE 50 MG/ML 1 ML VIAL IVP STA (19:06)
[2024-01-14] MEDS: HYDROmorphone 0.5 MG/0.5 ML SYRINGE IVP PRN (19:38)
[2024-01-14] MEDS: METOPROLOL TARTRATE 5 MG/5 ML VIAL IVP STA (19:51)
[2024-01-14] MEDS ORDERED: NITROGLYCERIN SL TABS 0.4 MG TAB SUBLINGUAL PRN (21:18)
[2024-01-14] MEDS: droPERidol 5 MG/2 ML VIAL IVP ONE (22:27)
[2024-01-14] MEDS: CEFDINIR 300 MG CAP PO SCH (22:32)
[2024-01-14] MEDS: hydrALAZINE HCL 50 MG TAB PO SCH (22:33)
[2024-01-14] MEDS: AMITRIPTYLINE HCL 10 MG TAB PO SCH (22:33)
[2024-01-15] MEDS: MORPHINE SULFATE 2 MG/ML SYRINGE IVP STA (01:42)
[2024-01-15] MEDS: hydrALAZINE HCL 50 MG TAB PO STA (03:36)
[2024-01-15 05:35] LABS: Glucose,Whole Blood 269 mg/dL (70-110)
[2024-01-15] MEDS: PANTOPRAZOLE 40 MG TABLET PO SCH (06:49)
[2024-01-15] MEDS: metFORMIN 500 MG TAB PO SCH (06:49)
[2024-01-15] MEDS: atenoloL 50 MG TAB PO SCH ×2 (07:53→21:34)
[2024-01-15] MEDS: LORATADINE 10 MG TAB PO SCH (07:54)
[2024-01-15] MEDS: amLODIPine 10 MG TAB PO SCH (07:54)
[2024-01-15] MEDS: GABAPENTIN 300 MG CAP PO SCH (07:54)
[2024-01-15] MEDS: FINASTERIDE 5 MG TAB PO SCH (07:54)
[2024-01-15] MEDS: ASPIRIN 81 MG PO SCH (07:54)
[2024-01-15] MEDS: ATORVASTATIN 40 MG TAB PO SCH (07:54)
[2024-01-15] MEDS ORDERED: DEXTROSE 50% SYRINGE 50 ML IVP PRN ×2 (08:06)
[2024-01-15] MEDS: ONDANSETRON 4 MG/2 ML VIAL IVP ONE (08:08)
--- NOTE | 2024-01-15 08:23 | P.PN ---
Subjective Progress Note Date: 01/15/24 Underwent TURBT yesterday, to the hospital for elevated blood pressure. Hospital service has been consulted, blood pressure is persistently elevated this morning. Urine is clear Objective - Vital Signs Vital signs: Vital Signs Temp 98.4 F 01/15/24 01:30 Pulse 82 01/15/24 01:30 Resp 18 01/15/24 01:30 BP 170/80 01/15/24 05:29 Pulse Ox 93 L 01/15/24 01:30 FiO2 Intake & Output 01/14/24 01/15/24 01/15/24 18:59 06:59 18:59 Intake Total 1350 Output Total 20 800 Balance 1330 -800 Weight 88.45 kg 88.45 kg Intake: IV 1350 Output: Urine 800 Estimated Blood Loss 20 - Constitutional General appearance: Present: no acute distress - Gastrointestinal General gastrointestinal: Present: soft. Absent: distended, tenderness - Labs Labs: Abnormal Lab Results - Last 24 Hours (Table) 01/14/24 01/15/24 Range/Units 18:56 05:34 POC Glucose (mg/dL) 162 H 269 H (70-110) mg/dL Assessment and Plan Assessment: Status post TURBT, admitted to the hospital postoperatively for elevated blood pressure. From urology standpoint he is cleared for discharge once he is cleared by medical service. Will plan on discharging home with a Bella catheter, once cleared for discharge
--- NOTE | 2024-01-15 10:54 | P.CONS ---
History of Present Illness - Reason for Consult Consult date: 01/15/24 - History of Present Illness Patient is a 78-year-old male with history of hypertension, dyslipidemia, CAD, type 2 diabetes, bladder cancer, previous bladder rupture presented for tumor resection. Perioperative course was complicated by hypertensive emergency, and acute encephalopathy. His blood pressure has been persistently close to 200 systolic, rest of the vital signs within normal limits. Currently saturating well on room air. Laboratory workup pending. Has a Bella catheter in place, with clear urine. Patient denies any chest pain, shortness of breath, abdominal pain, nausea, vomiting, or any bowel complaints. He does complain over urinary pain. Pertinent positives and negatives as discussed in HPI, a complete review of systems was performed and all other systems are negative. Patient seen and examined at bedside. Vital signs reviewed General: nontoxic, no distress, appears at stated age, chronically ill-appearing Derm: warm, dry Head: atraumatic, normocephalic, symmetric Eyes: EOMI, no lid lag, anicteric sclera, pupils equal round reactive to light ENT: Nose and ears atraumatic Neck: No thyromegaly, supple Mouth: no lip lesion, mucus membranes moist Cardiovascular: S1S2 reg, no murmur, no edema Lungs: clear to auscultation bilateral, no rhonchi, no rales, no wheeze, no accessory muscle use Abdominal: soft, nontender to palpation, no guarding, no appreciable organomegaly Ext: no gross muscle atrophy, muscle strength muscle strength 5 out of 5 in all 4 extremities, no contractures Neuro: CN II-XII grossly intact Psych: Alert, oriented x 2, appropriate affect Assessment/Plan: Hypertensive emergency Acute encephalopathy, likely delirium -Continue on home amlodipine 10 mg, atenolol 50 twice daily, hydralazine 100 3 times daily -Also started on hydralazine 10 IV push every 6 hours as needed for high blood pressure -Labs ordered, if renal function is okay, will likely start on RANDAL inhibitor as well -Rule out any metabolic derangements causing possible encephalopathy -Encephalopathy possibly also in the setting of surgery pain control, patient started on Pyridium 100 3 times daily by urology -Started on Tylenol 650 every 6 hours as needed -Amitriptyline discontinued due to anticholinergic effects -Continue gabapentin 300 daily for now Type 2 diabetes -Hold metformin -Sliding scale insulin, monitor for hypoglycemia History of CAD -Continue aspirin 81 mg, atorvastatin 40 mg Bladder cancer status postresection -Urology note reviewed, patient to leave home with Bella catheter -Continue cefdinir 300 twice daily -Continue finasteride 5 mg daily, tamsulosin 0.4 mg nightly GERD -Protonix 40 daily Thank you for allowing us to participate in the care of this pleasant patient. Do not hesitate to contact us with questions. Someone can be reached from the [facility] hospitalist group all hours of the day at [phone] or via [employer]. Past Medical History Past Medical History: Coronary Artery Disease (CAD), Chest Pain / Angina, Diabetes Mellitus, GERD/Reflux, Hyperlipidemia, Hypertension, Myocardial Infarction ([place]), Prostate Disorder Additional Past Medical History / Comment(s): pt's states pt did not have a heart attack he was seen in time. (per [facility]) BPH. white tumors floating in bladder. weak legs since bladder surgery for blood clots, 2022. ( has fallen per ) Last Myocardial Infarction Date:: 01/13/14 History of Any Multi-Drug Resistant Organisms: None Reported Past Surgical History: Heart Catheterization With Stent Additional Past Surgical History / Comment(s): X4 STENTS, bladder surgery for blood clots. Past Anesthesia/Blood Transfusion Reactions: No Reported Reaction Date of Last Stent Placement:: 2013 Past Psychological History: No Psychological Hx Reported Smoking Status: Former smoker Past Alcohol Use History: None Reported Additional Past Alcohol Use History / Comment(s): quit smoking 8yrs ago Past Drug Use History: None Reported - Past Family History Brother(s) Family Medical History: Myocardial Infarction ([place]) Additional Family Medical History / Comment(s): CABG Medications and Allergies Home Medications Medication Instructions Recorded Confirmed Type Ergocalciferol [Vitamin D2 50,000 unit PO Q14D 01/13/14 01/14/24 History (DRISDOL)] Finasteride 5 mg PO DAILY 01/13/14 01/14/24 History Tamsulosin [Flomax] 0.4 mg PO HS 01/13/14 01/14/24 History metFORMIN HCL 500 mg PO BID-W/MEALS 04/25/16 01/14/24 History Nitroglycerin Sl Tabs [Nitrostat] 0.4 mg SUBLINGUAL Q5M PRN #25 tab 04/28/16 01/14/24 Rx Amitriptyline HCl [Elavil] 10 mg PO HS 02/18/23 01/14/24 History Atorvastatin [Lipitor] 40 mg PO HS 02/18/23 01/14/24 History Cetirizine HCl [Zyrtec] 10 mg PO DAILY 02/18/23 01/14/24 History Fluticasone Nasal [place] [Flonase 1 spray EA NOSTRIL BID PRN 02/18/23 01/14/24 History Nasal [place]] Pantoprazole [Protonix] 40 mg PO DAILY 02/18/23 01/14/24 History Aspirin 81 mg PO DAILY #30 tab 02/27/23 01/14/24 Rx Gabapentin 300 mg PO DAILY 3 Days #3 cap 02/27/23 01/14/24 Rx amLODIPine [Norvasc] 10 mg PO DAILY tab 02/27/23 01/14/24 Rx atenoloL [Tenormin] 50 mg PO DAILY tab 02/27/23 01/14/24 Rx atenoloL [Tenormin] 50 mg PO HS tab 02/27/23 01/14/24 Rx cefUROXime axetiL [Ceftin] 500 mg PO BID 5 Days #10 tab 02/27/23 01/14/24 Rx hydrALAZINE HCL [Apresoline] 100 mg PO TID tab 02/27/23 01/14/24 Rx Unk Vitamin C 1 tab PO DAILY 01/13/24 01/14/24 History Folic Acid 1 mg PO DAILY 01/13/24 01/14/24 History Allergies Allergy/AdvReac Type Severity Reaction Status Date / Time No Known Allergies Allergy Verified 01/14/24 13:56 Physical Exam Vitals: Vital Signs Temp Pulse Resp BP Pulse Ox 01/15/24 07:17 80 18 210/93 95 01/15/24 05:29 170/80 01/15/24 03:22 180/90 01/15/24 01:30 98.4 F 82 18 189/94 93 L 01/14/24 22:20 98.6 F 76 18 190/100 94 L 01/14/24 21:15 88 16 194/89 93 L 01/14/24 20:45 70 17 187/84 100 01/14/24 20:30 70 18 191/92 92 L 01/14/24 20:15 186/91 01/14/24 20:00 61 16 219/93 98 01/14/24 19:45 69 16 207/96 98 01/14/24 19:30 64 16 204/94 98 01/14/24 19:20 72 16 225/103 98 01/14/24 19:15 72 16 201/91 96 01/14/24 19:00 75 16 208/102 96 01/14/24 18:52 85 14 210/96 95 01/14/24 13:37 98 F 56 L 16 179/88 96 Intake and Output 01/14/24 01/15/24 01/15/24 22:59 06:59 14:59 Intake Total 750 Output Total 20 800 210 Balance 730 -800 -210 Intake: IV 750 Output: Urine 800 210 Estimated Blood Loss 20 Other: Voiding Method Indwelling Catheter Weight 88.45 kg Results Labs: Abnormal Lab Results - Last 24 Hours (Table) 01/14/24 01/15/24 Range/Units 18:56 05:34 POC Glucose (mg/dL) 162 H 269 H (70-110) mg/dL
[2024-01-15] MEDS: PHENAZOPYRIDINE 100 MG TAB PO SCH (11:22)
[2024-01-15 11:25] LABS: Basophils % (A) 0 %; Eosinophils # (A) 0.1 k/uL (0-0.7); Eosinophils % (A) 0 %; HCT 40.5 % (39.0-53.0); HGB 12.7 gm/dL (13.0-17.5); Lymphocytes # (A) 1.2 k/uL (1.0-4.8); Lymphocytes % (A) 9 %; MCH 28.4 pg (25.0-35.0); MCHC 31.4 g/dL (31.0-37.0); MCV 90.6 fL (80.0-100.0); Mean Platelet Volume 8.1; Monocytes # (A) 0.7 k/uL (0-1.0); Monocytes % (A) 5 %; Neutrophils # (A) 11.5 k/uL (1.3-7.7); Neutrophils % (A) 84 %; Platelet Count 206 k/uL (150-450); RBC 4.47 m/uL (4.30-5.90); RDW 13.9 % (11.5-15.5); WBC 13.6 k/uL (3.8-10.6)
[2024-01-15 11:36] LABS: ALT 19 U/L (4-49); AST 21 U/L (17-59); African American GFR (CKD) 57 (>60 ml/min/1.73 sqM); Albumin 4.1 g/dL (3.5-5.0); Albumin/Globulin Ratio 1.6; Alkaline Phosphatase 85 U/L (38-126); Anion Gap 10 mmol/L; Blood Urea Nitrogen 24 mg/dL (9-20); Carbon Dioxide 24 mmol/L (22-30); Chloride 103 mmol/L (98-107); Globulin 2.6 g/dL; Glucose 179 mg/dL (74-99); Magnesium 1.3 mg/dL (1.6-2.3); Non-African American GFR(CKD) 49 (>60 ml/min/1.73 sqM); Potassium 4.3 mmol/L (3.5-5.1); Sodium 137 mmol/L (137-145); Total Bilirubin 0.7 mg/dL (0.2-1.3); Total Protein 6.7 g/dL (6.3-8.2)
[2024-01-15 11:50] LABS: Glucose,Whole Blood 181 mg/dL (70-110)
[2024-01-15] MEDS: INSULIN ASPART (NovoLOG) 100 UNIT/ML VIAL SQ SCH (12:58)
[2024-01-15 17:17] LABS: Glucose,Whole Blood 177 mg/dL (70-110)
[2024-01-15] MEDS: MAGNESIUM SULFATE-D5W PMX 1 GM in DEXTROSE/WATER 1 100ML.BAG IVPB SCH (18:58)
[2024-01-15 21:11] LABS: Glucose,Whole Blood 225 mg/dL (70-110)
[2024-01-15] MEDS: TAMSULOSIN 0.4 MG CAP.ER.24H PO SCH (21:34)
[2024-01-16] MEDS: hydrALAZINE HCL 20 MG/ML 1 ML VIAL IVP PRN (02:33)
[2024-01-16 06:03] LABS: Glucose,Whole Blood 127 mg/dL (70-110)
[2024-01-16 07:28] LABS: African American GFR (CKD) 57 (>60 ml/min/1.73 sqM); Anion Gap 5 mmol/L; Blood Urea Nitrogen 22 mg/dL (9-20); Calcium 8.9 mg/dL (8.4-10.2); Carbon Dioxide 27 mmol/L (22-30); Chloride 106 mmol/L (98-107); Glucose 131 mg/dL (74-99); Magnesium 1.9 mg/dL (1.6-2.3); Non-African American GFR(CKD) 50 (>60 ml/min/1.73 sqM); Potassium 3.9 mmol/L (3.5-5.1); Sodium 138 mmol/L (137-145)
[2024-01-16 08:19] LABS: Basophils # (A) 0.1 k/uL (0-0.2); Basophils % (A) 1 %; Eosinophils # (A) 0.1 k/uL (0-0.7); Eosinophils % (A) 1 %; HCT 38.2 % (39.0-53.0); Lymphocytes # (A) 1.9 k/uL (1.0-4.8); Lymphocytes % (A) 20 %; MCH 28.5 pg (25.0-35.0); MCHC 31.4 g/dL (31.0-37.0); MCV 90.8 fL (80.0-100.0); Monocytes # (A) 0.6 k/uL (0-1.0); Monocytes % (A) 7 %; Neutrophils # (A) 6.6 k/uL (1.3-7.7); Neutrophils % (A) 70 %; Platelet Count 163 k/uL (150-450); RBC 4.21 m/uL (4.30-5.90); WBC 9.5 k/uL (3.8-10.6)
[2024-01-16 08:37] VITALS: BP 114/56; PULSE 56; RESP 16
[2024-01-16 09:05] VITALS: TEMP 98.1
--- NOTE | 2024-01-16 10:59 | P.PN ---
Subjective Progress Note Date: 01/16/24 Subjective: Patient seen and examined at bedside. No acute events overnight. Mental status at baseline. Pertinent positives and negatives as discussed above, a complete review of systems was performed and all other systems are negative. Vitals Signs Reviewed. General: Nontoxic, no distress, appears at stated age Derm: Warm, dry Head: Atraumatic, normocephalic, symmetric Eyes: EOMI, no lid lag, anicteric sclera Mouth: No lip lesion, mucus membranes moist Cardiovascular: S1S2 reg, no murmur Lungs: CTA bilateral, no rhonchi, no rales, no accessory muscle use Abdominal: Soft, nontender to palpation, no guarding, no appreciable organomegaly Ext: No gross muscle atrophy, no edema, no contractures Neuro: CN II-XI grossly intact, no focal neuro deficits Psych: Alert, oriented, appropriate affect Data Reviewed Today: Pertinent Labs: WBC 9.5, hemoglobin 12.0, creatinine 1.36, magnesium 1.9, A1c 7.4, blood glucose range between 1 27-2 25 Imaging: No new imaging Assessment and Plan: Hypertensive emergency, blood pressure improved Acute encephalopathy, likely delirium, resolved Hypomagnesemia, resolved -Continue on home amlodipine 10 mg, atenolol 50 twice daily, hydralazine 100 3 times daily -Continue on hydralazine 10 IV push every 6 hours as needed for high blood pressure, if systolic blood pressure greater than 180 -Mental status at baseline -Continue Pyridium 100 3 times daily by urology -Continue on Tylenol 650 every 6 hours as needed -Amitriptyline discontinued due to anticholinergic effects -Continue gabapentin 300 daily for now Type 2 diabetes -Hold metformin -Sliding scale insulin, monitor for hypoglycemia History of CAD -Continue aspirin 81 mg, atorvastatin 40 mg Bladder cancer status postresection -Urology note reviewed, patient to leave home with Bella catheter -Continue cefdinir 300 twice daily -Continue finasteride 5 mg daily, tamsulosin 0.4 mg nightly GERD -Protonix 40 daily Patient is medically optimized for discharge. Thank you for allowing us to participate in the care of this pleasant patient. Do not hesitate to contact us with questions. Someone can be reached from the [facility] hospitalist group all hours of the day at [phone] or via perfect serve. Objective - Vital Signs Vital signs: Vital Signs Temp 98.1 F 06/22/24 07:19 Pulse 56 L 01/16/24 08:36 Resp 16 01/16/24 08:36 BP 114/56 01/16/24 08:36 Pulse Ox 92 L 01/16/24 08:36 FiO2 Intake & Output 01/15/24 01/16/24 01/16/24 18:59 06:59 18:59 Intake Total 210 Output Total 210 1100 Balance 0 -1100 Intake: IV 10 Invasive Line 2 10 Oral 200 Output: Urine 210 1100 Other: Voiding Method Indwelling Catheter Indwelling Catheter - Labs CBC & Chem 7: 01/16/24 06:34 01/16/24 06:34 Labs: Abnormal Lab Results - Last 24 Hours (Table) 01/15/24 01/15/24 01/15/24 Range/Units 10:54 10:54 11:49 WBC 13.6 H (3.8-10.6) k/uL RBC (4.30-5.90) m/uL Hgb 12.7 L (13.0-17.5) gm/dL Hct (39.0-53.0) % Neutrophils # 11.5 H (1.3-7.7) k/uL BUN 24 H (9-20) mg/dL Creatinine 1.37 H (0.66-1.25) mg/dL Glucose 179 H (74-99) mg/dL POC Glucose (mg/dL) 181 H (70-110) mg/dL Hemoglobin A1c (<=6.0) % Magnesium 1.3 L (1.6-2.3) mg/dL 01/15/24 01/15/24 01/16/24 Range/Units 17:15 21:10 06:01 WBC (3.8-10.6) k/uL RBC (4.30-5.90) m/uL Hgb (13.0-17.5) gm/dL Hct (39.0-53.0) % Neutrophils # (1.3-7.7) k/uL BUN (9-20) mg/dL Creatinine (0.66-1.25) mg/dL Glucose (74-99) mg/dL POC Glucose (mg/dL) 177 H 225 H 127 H (70-110) mg/dL Hemoglobin A1c (<=6.0) % Magnesium (1.6-2.3) mg/dL 01/16/24 01/16/24 01/16/24 Range/Units 06:34 06:34 06:34 WBC (3.8-10.6) k/uL RBC 4.21 L (4.30-5.90) m/uL Hgb 12.0 L (13.0-17.5) gm/dL Hct 38.2 L (39.0-53.0) % Neutrophils # (1.3-7.7) k/uL BUN 22 H (9-20) mg/dL Creatinine 1.36 H (0.66-1.25) mg/dL Glucose 131 H (74-99) mg/dL POC Glucose (mg/dL) (70-110) mg/dL Hemoglobin A1c 7.4 H (<=6.0) % Magnesium (1.6-2.3) mg/dL
[2024-01-16 11:38] LABS: Glucose,Whole Blood 136 mg/dL (70-110)
--- NOTE | 2024-01-16 22:42 | P.DS ---
Providers Attending physician: Dae Mcgovern Consults: 01/14/24 20:57 Consult Physician Stat Consulting Provider: Riddhi Boggs Consult Reason/Comments: uncontrolled post-op hypertension Do you want consulting provider notified?: Yes Primary care physician: Cameron Rea [facility] Course: This is a 78-year-old male with history of bladder mass, underwent a transurethral resection of a bladder tumor by Dr. Mcgovern on January 13. Patient was admitted to the hospital postoperatively due to uncontrolled hypertension. Medical services was consulted, his blood pressure did improve on postop day #2. He was discharged home on postop day #2. His blood pressure was stable at time of discharge. He was discharged with the Bella catheter, at time of discharge he was tolerating a diet, ambulating, and pain was controlled Patient Condition at Discharge: Good Plan - Discharge Summary Discharge Rx Participant: No New Discharge Prescriptions: Continue RX: Tamsulosin [Flomax] 0.4 mg PO HS RX: Finasteride 5 mg PO DAILY RX: Ergocalciferol [Vitamin D2 (DRISDOL)] 50,000 unit PO Q14D RX: metFORMIN HCL 500 mg PO BID-W/MEALS RX: Nitroglycerin Sl Tabs [Nitrostat] 0.4 mg SUBLINGUAL Q5M PRN #25 tab PRN Reason: Chest Pain RX: Fluticasone Nasal [place] [Flonase Nasal [place]] 1 spray EA NOSTRIL BID PRN PRN Reason: Allergy Symptoms RX: Pantoprazole [Protonix] 40 mg PO DAILY RX: Atorvastatin [Lipitor] 40 mg PO HS RX: atenoloL [Tenormin] 50 mg PO HS tab RX: Aspirin 81 mg PO DAILY #30 tab RX: Folic Acid 1 mg PO DAILY RX: Cetirizine HCl [Zyrtec] 10 mg PO DAILY RX: hydrALAZINE HCL [Apresoline] 100 mg PO TID tab RX: amLODIPine [Norvasc] 10 mg PO DAILY tab RX: atenoloL [Tenormin] 50 mg PO DAILY tab RX: Gabapentin 300 mg PO DAILY 3 Days #3 cap Unk Vitamin C 1 tab PO DAILY Discontinued RX: Amitriptyline HCl [Elavil] 10 mg PO HS No Action cefUROXime axetiL [Ceftin] 500 mg PO BID 5 Days #10 tab Discharge Medication List RX: Ergocalciferol [Vitamin D2 (DRISDOL)] 50,000 unit PO Q14D 01/13/14 [History] RX: Finasteride 5 mg PO DAILY 01/13/14 [History] RX: Tamsulosin [Flomax] 0.4 mg PO HS 01/13/14 [History] RX: metFORMIN HCL 500 mg PO BID-W/MEALS 04/25/16 [History] RX: Nitroglycerin Sl Tabs [Nitrostat] 0.4 mg SUBLINGUAL Q5M PRN #25 tab 04/28/16 [Rx] RX: Atorvastatin [Lipitor] 40 mg PO HS 02/18/23 [History] RX: Cetirizine HCl [Zyrtec] 10 mg PO DAILY 02/18/23 [History] RX: Fluticasone Nasal [place] [Flonase Nasal [place]] 1 spray EA NOSTRIL BID PRN 02/18/23 [History] RX: Pantoprazole [Protonix] 40 mg PO DAILY 02/18/23 [History] RX: Aspirin 81 mg PO DAILY #30 tab 02/27/23 [Rx] RX: Gabapentin 300 mg PO DAILY 3 Days #3 cap 02/27/23 [Rx] RX: amLODIPine [Norvasc] 10 mg PO DAILY tab 02/27/23 [Rx] RX: atenoloL [Tenormin] 50 mg PO DAILY tab 02/27/23 [Rx] RX: atenoloL [Tenormin] 50 mg PO HS tab 02/27/23 [Rx] RX: hydrALAZINE HCL [Apresoline] 100 mg PO TID tab 02/27/23 [Rx] cefUROXime axetiL [Ceftin] 500 mg PO BID 5 Days #10 tab 02/27/23 [Rx] Unk Vitamin C 1 tab PO DAILY 01/13/24 [History] RX: Folic Acid 1 mg PO DAILY 01/13/24 [History] Follow up Appointment(s)/Referral(s): Dae Mcgovern MD [STAFF PHYSICIAN] - 01/20/24 9:00 am (CALL OFFICE TO MAKE APPT FOR 01/19 IF NOT ALREADY IN PLACE ) Patient Instructions/Handouts: *Surgery [facility] - Bella Catheter Instructions, *[facility] - (Anesthesia) Discharge Instructions Outpatient Surgery, Urinary Leg Bag (GEN), Transurethral Resection of Bladder Tumors (DC) Activity/Diet/Wound Care/Special Instructions: Discharge home with Bella catheter. Avoid straining or strenuous activity. Drink plenty of fluids. May resume home medications. FOLLOW UP WITH PRIMARY CARE DR ORO INCREASED BP Discharge Disposition: HOME SELF-CARE
== END 2024-01-16 13:10 | disposition home or self-care (01) ==
LOC: OR 13:02 → 4SSUR 21:04 → OR 01-16 13:10
PROVIDERS: ATTEND Urology
DX: C67.9 Malignant neoplasm of bladder, unspecified (principal); N32.89 Other specified disorders of bladder; E11.9 Type 2 diabetes mellitus without complications; E78.5 Hyperlipidemia, unspecified; G93.40 Encephalopathy, unspecified; I10 Essential (primary) hypertension; I16.1 Hypertensive emergency; I25.10 Atherosclerotic heart disease of native coronary artery without angina pectoris; I25.2 Old myocardial infarction; K21.9 Gastro-esophageal reflux disease without esophagitis; N40.0 Benign prostatic hyperplasia without lower urinary tract symptoms; Z79.2 Long term (current) use of antibiotics; Z79.82 Long term (current) use of aspirin; Z79.84 Long term (current) use of oral hypoglycemic drugs; Z79.899 Other long term (current) drug therapy; Z87.891 Personal history of nicotine dependence
CPT/HCPCS: 52240; 88305; 80053; 80048; 83735 ×2; 85025 ×2; 88307; 83036; S0138 ×2; J0330; J0360 ×2; J1200; J1100; J2710; J0690; J2001; J3010; J2270; J1170 ×2; J3475; J2704

== ENCOUNTER → 2024-09-30 | Outpatient (CLI) | payer MEDICARE, OTHER ==
--- NOTE | 2024-09-30 14:51 | CT ---
EXAMINATION TYPE: CT abdomen pelvis wo con DATE OF EXAM: 09/30/2024 2:25 PM COMPARISON: 02/18/2023 CLINICAL INDICATION: Male, 79 years old with history of C67.9 BLADDER CANCER; Bladder CA. TECHNIQUE: Axial CT abdomen pelvis wo con;Sagittal and coronal reformats were created on a separate workstation. Contrast used: mL of , (none if empty) Oral contrast used: without Oral Contrast (none if empty) CT DLP: 702.6 mGycm, Automated exposure control for dose reduction was used. FINDINGS: LOWER CHEST: Intrafissural lymph node. Large severe coronary artery calcifications. Moderate Calcifications ABDOMEN LIVER: Unremarkable GALLBLADDER AND BILE DUCTS: Unremarkable. PANCREAS: Unremarkable. SPLEEN: Unremarkable. ADRENAL GLANDS: Unremarkable. KIDNEYS AND URETERS: No evidence of hydronephrosis or renal calculus. The ureters are unremarkable. Bilateral renal cortical cysts. Right nonobstructing renal calculus measuring 5 mm. PELVIS BLADDER: There may be mild wall thickening of the anterior bladder seen on sagittal imaging up to 8 m m series 7 image 72. REPRODUCTIVE: Unremarkable. ABDOMEN & PELVIS STOMACH AND BOWEL: No evidence of bowel obstruction. Scattered colonic diverticula. Moderate to large stool burden in the rectum and sigmoid colon. PERITONEUM/RETROPERITONEUM: No evidence of pneumoperitoneum or free fluid. VASCULATURE: No evidence of aortic aneurysm. MUSCULOSKELETAL: No acute osseous abnormalities LYMPH NODES: No gross evidence for lymphadenopathy. SOFT TISSUE/ABDOMINAL WALL: Unremarkable IMPRESSION: Mild anterior bladder wall thickening which is poorly visualized due to lack of contrast collecting s ystem. Consider direct visualization. No evidence for lymphadenopathy. Prostatomegaly correlate serum PSA. Moderate sigmoid and rectal stool burden. Colonic diverticulosis. Bilateral renal cysts. Nonspecific right renal calculus. [facility], , 09/30/2024 2:49 PM
== END | disposition home or self-care (01) ==
LOC: RADCTMAIN 14:03
PROVIDERS: ATTEND Urology
DX: C67.9 Malignant neoplasm of bladder, unspecified (principal); N20.0 Calculus of kidney; N40.0 Benign prostatic hyperplasia without lower urinary tract symptoms; K57.30 Diverticulosis of large intestine without perforation or abscess without bleeding; N28.1 Cyst of kidney, acquired; R19.5 Other fecal abnormalities
CPT/HCPCS: 74176